=== PATIENT | female | born 1980 | race Caucasian/White ===

== ENCOUNTER 2017-04-10 08:03 | Emergency (ER) | payer OTHER ==
[2017-04-10 08:13] VITALS: TEMP 98.7
[2017-04-10] MEDS ORDERED: SODIUM CHLORIDE 0.9% 1,000 ML IV STA (08:59)
[2017-04-10] MEDS ORDERED: MAG HYDROX/AL HYDROX/SIMETH 30 ML, HYOSCYAMINE ELIXIR 10 ML, CIMETIDINE HCL 300 MG, LID... PO STA ×4 (08:59)
[2017-04-10] MEDS ORDERED: ONDANSETRON 4 MG/2 ML VIAL IVP STA (08:59)
[2017-04-10] MEDS ORDERED: FAMOTIDINE 20 MG/2 ML VIAL IV STA (08:59)
--- NOTE | 2017-04-10 09:01 | ED ---
General Adult HPI - General Chief complaint: Nausea/Vomiting/Diarrhea Stated complaint: Flu Time Seen by Provider: 04/10/17 08:47 Source: patient, RN notes reviewed Mode of arrival: ambulatory Limitations: no limitations - History of Present Illness Initial comments: 36-year-old female presents emergency department with chief complaint of nausea and vomiting. Patient states children were sick last week on Sunday she had episodes of nausea and vomiting. She states she continues to just feels very weak and fatigued. She states that she developed some burning under her left breast today so she became concerned. normal bowel movements. She states that it is associated with how she lays. She states the vomiting seems to make it worse. She denies any high fevers with this. She states that her family was sick with similar like symptoms. She became concerned when she developed this chest burning so she thought that she should be seen. She denies any significant health history. She denies any shortness of breath with this. She denies any other symptoms at this time.Patient denies any recent fever, chills, shortness of breath, abdominal pain, numbness or tingling, dysuria or hematuria , constipation or diarrhea, headaches or visual changes, or any other current symptoms. - Related Data Home Medications Medication Instructions Recorded Confirmed Loratadine [Claritin] 10 mg PO DAILY 04/10/17 04/10/17 Norgestimate-Ethinyl Estradiol 1 tab PO DAILY 04/10/17 04/10/17 [Sprintec 28 Day Tablet] Oscillococcinum 1 tab PO DAILY 04/10/17 04/10/17 Previous Rx's Medication Instructions Recorded Ondansetron Odt [Zofran ODT] 4 mg PO Q8HR PRN #20 tab 04/10/17 Allergies Allergy/AdvReac Type Severity Reaction Status Date / Time No Known Allergies Allergy Verified 04/10/17 08:26 Review of Systems ROS Statement: Those systems with pertinent positive or pertinent negative responses have been documented in the HPI. ROS Other: All systems not noted in ROS Statement are negative. Past Medical History Past Medical History: No Reported History History of Any Multi-Drug Resistant Organisms: None Reported Past Surgical History: Cholecystectomy Past Psychological History: No Psychological Hx Reported Smoking Status: Current every day smoker Past Alcohol Use History: None Reported Past Drug Use History: None Reported General Exam - General Exam Comments Initial Comments: General: The patient is awake and alert, in no distress, and does not appear acutely ill. Eye: Pupils are equal, round and reactive to light, extra-ocular movements are intact; there is normal conjunctiva bilaterally. No signs of icterus. Ears, nose, mouth and throat: There are moist mucous membranes. Neck: The neck is supple, there is no tenderness. Cardiovascular: There is a regular rate and rhythm. No murmur, rub or gallop is appreciated. Respiratory: Lungs are clear to auscultation, respirations are non-labored, breath sounds are equal. No wheezes, stridor, rales, or rhonchi. Gastrointestinal: Soft, non-distended, non-tender abdomen without masses or organomegaly noted. There is no rebound or guarding present. No CVA tenderness. Bowel sounds are unremarkable. Back: There is no tenderness to palpation in the midline. There is no obvious deformity. No rashes noted. Musculoskeletal: Normal ROM, no tenderness, There is no pedal edema. There is no calf tenderness or swelling. Sensation intact. Pulses equal bilaterally 2+. Neurological: CN II-XII intact, There are no obvious motor or sensory deficits. Coordination appears grossly intact. Speech is normal. Skin: Skin is warm and dry and no rashes or lesions are noted. Psychiatric: Cooperative, appropriate mood & affect, normal judgment. Limitations: no limitations Course Vital Signs 04/10/17 08:11 Temperature 98.7 F Pulse Rate 107 H Respiratory 20 Rate Blood Pressure 121/74 O2 Sat by Pulse 98 Oximetry EKG Findings - EKG Comments: EKG Findings:: normal sinus rhythm with sinus arrhythmia 67 bpm, normal axis, no atopy, no S-T depressions or elevations, Medical Decision Making - Medical Decision Making 36-year-old female presents emergency department chief complaint of nausea and vomiting. At this time patient's lab work is been reviewed. As well as imaging. This time we discussed most likely viral gastroenteritis is a family history and her symptoms. We discussed the burning in her chest is most likely due to acid reflux from vomiting. We did discuss close follow-up we did discuss return parameters. We did discuss other etiologies and all questions. Patient stated that she understood and she is given plan. She will be discharged. - Lab Data Result diagrams: 04/10/17 09:30 04/10/17 09:30 Lab Results 04/10/17 04/10/17 04/10/17 Range/Units 09:30 09:30 09:30 WBC 8.6 (3.8-10.6) k/uL RBC 4.65 (3.80-5.40) m/uL Hgb 14.2 (11.4-16.0) gm/dL Hct 41.7 (34.0-46.0) % MCV 89.8 (80.0-100.0) fL MCH 30.6 (25.0-35.0) pg MCHC 34.0 (31.0-37.0) g/dL RDW 13.1 (11.5-15.5) % Plt Count 262 (150-450) k/uL Neutrophils % 77 % Lymphocytes % 16 % Monocytes % 5 % Eosinophils % 1 % Basophils % 0 % Neutrophils # 6.6 (1.3-7.7) k/uL Lymphocytes # 1.4 (1.0-4.8) k/uL Monocytes # 0.4 (0-1.0) k/uL Eosinophils # 0.1 (0-0.7) k/uL Basophils # 0.0 (0-0.2) k/uL Sodium 139 (137-145) mmol/L Potassium 4.4 (3.5-5.1) mmol/L Chloride 103 (98-107) mmol/L Carbon Dioxide 26 (22-30) mmol/L Anion Gap 10 mmol/L BUN 11 (7-17) mg/dL Creatinine 0.74 (0.52-1.04) mg/dL Est GFR (MDRD) Af Amer >60 (>60 ml/min/1.73 sqM) Est GFR (MDRD) Non-Af >60 (>60 ml/min/1.73 sqM) Glucose 83 (74-99) mg/dL Calcium 9.1 (8.4-10.2) mg/dL Total Bilirubin 0.4 (0.2-1.3) mg/dL AST 21 (14-36) U/L ALT 24 (9-52) U/L Alkaline Phosphatase 82 (38-126) U/L Total Protein 7.0 (6.3-8.2) g/dL Albumin 4.0 (3.5-5.0) g/dL Amylase 61 (30-110) U/L Lipase 38 (23-300) U/L Urine Color Urine Appearance (Clear) Urine pH (5.0-8.0) Ur Specific [place] (1.001-1.035) Ur Protein Confirm (Negative) Urine Glucose (UA) (Negative) Urine Ketones (Negative) Urine Blood (Negative) Urine Nitrite (Negative) Urine Bilirubin (Negative) Urine Urobilinogen (<2.0) mg/dL Ur Leukocyte Esterase (Negative) Urine RBC (0-5) /hpf Urine WBC (0-5) /hpf Urine HCG, Qual Not Detected (Not Detectd) Influenza Type A RNA (Not Detectd) Influenza Type B (PCR) (Not Detectd) 04/10/17 04/10/17 Range/Units 09:30 09:30 WBC (3.8-10.6) k/uL RBC (3.80-5.40) m/uL Hgb (11.4-16.0) gm/dL Hct (34.0-46.0) % MCV (80.0-100.0) fL MCH (25.0-35.0) pg MCHC (31.0-37.0) g/dL RDW (11.5-15.5) % Plt Count (150-450) k/uL Neutrophils % % Lymphocytes % % Monocytes % % Eosinophils % % Basophils % % Neutrophils # (1.3-7.7) k/uL Lymphocytes # (1.0-4.8) k/uL Monocytes # (0-1.0) k/uL Eosinophils # (0-0.7) k/uL Basophils # (0-0.2) k/uL Sodium (137-145) mmol/L Potassium (3.5-5.1) mmol/L Chloride (98-107) mmol/L Carbon Dioxide (22-30) mmol/L Anion Gap mmol/L BUN (7-17) mg/dL Creatinine (0.52-1.04) mg/dL Est GFR (MDRD) Af Amer (>60 ml/min/1.73 sqM) Est GFR (MDRD) Non-Af (>60 ml/min/1.73 sqM) Glucose (74-99) mg/dL Calcium (8.4-10.2) mg/dL Total Bilirubin (0.2-1.3) mg/dL AST (14-36) U/L ALT (9-52) U/L Alkaline Phosphatase (38-126) U/L Total Protein (6.3-8.2) g/dL Albumin (3.5-5.0) g/dL Amylase (30-110) U/L Lipase (23-300) U/L Urine Color Yellow Urine Appearance Slightly Cloudy H (Clear) Urine pH 6.0 (5.0-8.0) Ur Specific [place] 1.018 (1.001-1.035) Ur Protein Confirm Negative (Negative) Urine Glucose (UA) Negative (Negative) Urine Ketones 1+ H (Negative) Urine Blood Small (Negative) Urine Nitrite Negative (Negative) Urine Bilirubin 1+ H (Negative) Urine Urobilinogen 1.0 (<2.0) mg/dL Ur Leukocyte Esterase Moderate (Negative) Urine RBC 2 (0-5) /hpf Urine WBC 2 (0-5) /hpf Urine HCG, Qual (Not Detectd) Influenza Type A RNA Not Detected (Not Detectd) Influenza Type B (PCR) Not Detected (Not Detectd) Disposition Clinical Impression: Nausea & vomiting, Atypical chest pain Disposition: HOME SELF-CARE Condition: Stable Instructions: Acute Nausea and Vomiting (ED), Gastroenteritis (ED) Additional Instructions: Please use medication as discussed. Please follow up with family doctor if symptoms have not improved over the next two days. Please return to the emergency room if your symptoms increase or worsen or for any other concerns. Prescriptions: Ondansetron Odt [Zofran ODT] 4 mg PO Q8HR PRN #20 tab PRN Reason: Nausea Referrals: Marcelino Salgado DO [Primary Care Provider] - 1-2 days Time of Disposition: 10:39
[2017-04-10 09:51] LABS: Basophils % (A) 0 %; Eosinophils # (A) 0.1 k/uL (0-0.7); Eosinophils % (A) 1 %; HCT 41.7 % (34.0-46.0); HGB 14.2 gm/dL (11.4-16.0); Lymphocytes # (A) 1.4 k/uL (1.0-4.8); Lymphocytes % (A) 16 %; MCH 30.6 pg (25.0-35.0); MCV 89.8 fL (80.0-100.0); Mean Platelet Volume 7.1; Monocytes # (A) 0.4 k/uL (0-1.0); Monocytes % (A) 5 %; Neutrophils # (A) 6.6 k/uL (1.3-7.7); Neutrophils % (A) 77 %; Platelet Count 262 k/uL (150-450); RBC 4.65 m/uL (3.80-5.40); RDW 13.1 % (11.5-15.5); WBC 8.6 k/uL (3.8-10.6)
[2017-04-10 09:58] LABS: Color,Urine Yellow
[2017-04-10 09:59] LABS: Appearance,Urine Slightly Cloudy (Clear); Bilirubin,Urine 1+ (Negative); Glucose,Urine (UA) Negative (Negative); Ketones,Urine 1+ (Negative); Protein Confirmation,Urine Negative (Negative); Specific Gravity,Urine 1.018 (1.001-1.035)
[2017-04-10 10:00] LABS: Blood,Urine Small (Negative); Leukocyte Esterase,Urine Moderate (Negative); Nitrite,Urine Negative (Negative)
[2017-04-10 10:01] LABS: RBC,Urine 2 /hpf (0-5); WBC,Urine 2 /hpf (0-5)
--- NOTE | 2017-04-10 10:08 | XR ---
EXAMINATION TYPE: XR abdomen 2V DATE OF EXAM: 04/10/2017 COMPARISON: NONE HISTORY: Pain and vomiting TECHNIQUE: Two view abdominal series FINDINGS: The osseous structures are intact. The bowel gas pattern is nonspecific. Lung bases are clear. Post surgical change involving the right upper quadrant. Few prominent small bowel loops are seen. IMPRESSION: 1. Nonspecific abdomen. There are few prominent small bowel loops. Correlate for ileus or enteritis which is favored over partial obstruction. Correlate clinically.
[2017-04-10 10:14] LABS: ALT 24 U/L (9-52); AST 21 U/L (14-36); Alkaline Phosphatase 82 U/L (38-126); Amylase 61 U/L (30-110); Anion Gap 10 mmol/L; Blood Urea Nitrogen 11 mg/dL (7-17); Calcium 9.1 mg/dL (8.4-10.2); Carbon Dioxide 26 mmol/L (22-30); Chloride 103 mmol/L (98-107); Glucose 83 mg/dL (74-99); Lipase 38 U/L (23-300); Potassium 4.4 mmol/L (3.5-5.1); Sodium 139 mmol/L (137-145); Total Bilirubin 0.4 mg/dL (0.2-1.3)
[2017-04-10 10:53] VITALS: BP 126/72; PULSE 74; RESP 18
== END 2017-04-10 10:53 | disposition home or self-care (01) ==
LOC: EC 08:03
DX: R11.2 Nausea with vomiting, unspecified (principal); R07.89 Other chest pain; F17.200 Nicotine dependence, unspecified, uncomplicated; Z79.3 Long term (current) use of hormonal contraceptives; Z79.899 Other long term (current) drug therapy; Z90.49 Acquired absence of other specified parts of digestive tract
CPT/HCPCS: 36415; 93005; 80053; 82150; 83690; 85025; 81001; 81025; 87040; 87086; 87502; 74019; 99284; 96374; 96375; 96361; J2405

== ENCOUNTER → 2018-04-24 | Outpatient (CLI) | payer OTHER ==
--- NOTE | 2018-04-25 07:31 | US ---
EXAMINATION TYPE: US thyroid st tissue head/neck DATE OF EXAM: 04/24/2018 COMPARISON: NONE CLINICAL HISTORY: R59.0 Localized enlarged lymph nodes. enlarging left lateral neck lymph node, no pa in 1.9 x 1.2 x 0.3cm normal appearing lymph node with internal vascularity noted at palpable that sits l aterally adjacent to hair line. IMPRESSION: Normal lymph node noted at that site of clinical concern.
== END | disposition home or self-care (01) ==
LOC: RADUSWWP 16:39
PROVIDERS: ATTEND Family Medicine
DX: R59.0 Localized enlarged lymph nodes (principal)
CPT/HCPCS: 76536

== ENCOUNTER 2018-06-03 07:50 | Emergency (ER) | payer OTHER ==
[2018-06-03 08:01] VITALS: RESP 18
[2018-06-03] MEDS ORDERED: SODIUM CHLORIDE 0.9% 1,000 ML IV STA (08:18)
--- NOTE | 2018-06-03 08:28 | ED ---
Abdominal Pain HPI - General Chief Complaint: Abdominal Pain Stated Complaint: abdominal pain Time Seen by Provider: 06/03/18 08:03 Source: patient, RN notes reviewed Mode of arrival: ambulatory Limitations: no limitations - History of Present Illness Initial Comments: This a 37-year-old female presents emergency Department chief complaint of right-sided abdominal pain. Patient states she started with some back discomfort has now progressed to her abdominal region. Patient states that the pain is worse with walking and bumps. Patient states she's had a prior cholecystectomy years ago. Patient does admit to slight nausea no vomiting. Denies any dysuria, hematuria. She does have a history kidney stones with this feels different. Patient does take her control unsure at this time. Patient denies any vaginal bleeding or vaginal discharge. - Related Data Home Medications Medication Instructions Recorded Confirmed Norgestimate-Ethinyl Estradiol 1 tab PO DAILY 04/10/17 06/03/18 [Sprintec 28 Day Tablet] Escitalopram Oxalate [Lexapro] 10 mg PO HS 06/03/18 06/03/18 Ibuprofen [Motrin] 600 mg PO Q8HR PRN 06/03/18 06/03/18 Previous Rx's Medication Instructions Recorded Ciprofloxacin HCl [Cipro] 500 mg PO Q12HR #20 tablet 06/03/18 Allergies Allergy/AdvReac Type Severity Reaction Status Date / Time No Known Allergies Allergy Verified 06/03/18 08:14 Review of Systems ROS Statement: Those systems with pertinent positive or pertinent negative responses have been documented in the HPI. ROS Other: All systems not noted in ROS Statement are negative. Past Medical History Past Medical History: No Reported History History of Any Multi-Drug Resistant Organisms: None Reported Past Surgical History: Cholecystectomy Past Psychological History: No Psychological Hx Reported Smoking Status: Current every day smoker Past Alcohol Use History: Occasional Past Drug Use History: None Reported General Exam Limitations: no limitations General appearance: alert, in no apparent distress Head exam: Present: atraumatic, normocephalic, normal inspection Neck exam: Present: normal inspection. Absent: tenderness, meningismus, lymphadenopathy Respiratory exam: Present: normal lung sounds bilaterally. Absent: respiratory distress, wheezes, rales, rhonchi, stridor Cardiovascular Exam: Present: normal rhythm, tachycardia, normal heart sounds. Absent: systolic murmur, diastolic murmur, rubs, gallop, clicks GI/Abdominal exam: Present: soft, tenderness (Moderate right-sided), normal bowel sounds. Absent: distended, guarding, rebound, rigid Course Vital Signs 06/03/18 07:59 Temperature 100.3 F H Pulse Rate 109 H Respiratory 18 Rate Blood Pressure 104/65 O2 Sat by Pulse 98 Oximetry Medical Decision Making - Medical Decision Making 37-year-old female presents emergency Department for right back pain, right lower quadrant abdominal plain. Lab work, urinalysis and CT was obtained. Patient CT shows evidence of pyelonephritis consistent with her urinalysis. Patient we given 2 g Rocephin at this time. She has no immunocompromise. Patient clinically was not fully visualized on CT though there is no evidence of stranding. This felt to be less likely appendicitis. Patient was given strict return parameters. Patient be discharged on Cipro Floxin return parameters were discussed. - Lab Data Result diagrams: 06/03/18 08:35 06/03/18 08:35 Lab Results 06/03/18 06/03/18 06/03/18 Range/Units 08:30 08:30 08:35 WBC 13.2 H (3.8-10.6) k/uL RBC 4.66 (3.80-5.40) m/uL Hgb 14.2 (11.4-16.0) gm/dL Hct 42.7 (34.0-46.0) % MCV 91.6 (80.0-100.0) fL MCH 30.4 (25.0-35.0) pg MCHC 33.2 (31.0-37.0) g/dL RDW 12.3 (11.5-15.5) % Plt Count 270 (150-450) k/uL Neutrophils % 77 % Lymphocytes % 14 % Monocytes % 6 % Eosinophils % 1 % Basophils % 0 % Neutrophils # 10.2 H (1.3-7.7) k/uL Lymphocytes # 1.9 (1.0-4.8) k/uL Monocytes # 0.9 (0-1.0) k/uL Eosinophils # 0.1 (0-0.7) k/uL Basophils # 0.0 (0-0.2) k/uL Sodium (137-145) mmol/L Potassium (3.5-5.1) mmol/L Chloride (98-107) mmol/L Carbon Dioxide (22-30) mmol/L Anion Gap mmol/L BUN (7-17) mg/dL Creatinine (0.52-1.04) mg/dL Est GFR (CKD-EPI)AfAm (>60 ml/min/1.73 sqM) Est GFR (CKD-EPI)NonAf (>60 ml/min/1.73 sqM) Glucose (74-99) mg/dL Plasma Lactic Acid Jean (0.7-2.0) mmol/L Calcium (8.4-10.2) mg/dL Total Bilirubin (0.2-1.3) mg/dL AST (14-36) U/L ALT (9-52) U/L Alkaline Phosphatase (38-126) U/L Total Protein (6.3-8.2) g/dL Albumin (3.5-5.0) g/dL Lipase (23-300) U/L Urine Color Yellow Urine Appearance Cloudy H (Clear) Urine pH 6.0 (5.0-8.0) Ur Specific [place] 1.016 (1.001-1.035) Urine Protein 1+ H (Negative) Urine Glucose (UA) Negative (Negative) Urine Ketones Trace H (Negative) Urine Blood Moderate H (Negative) Urine Nitrite Negative (Negative) Urine Bilirubin Negative (Negative) Urine Urobilinogen <2.0 (<2.0) mg/dL Ur Leukocyte Esterase Large H (Negative) Urine RBC 41 H (0-5) /hpf Urine WBC >182 H (0-5) /hpf Ur Squamous Epith Cells 2 (0-4) /hpf Urine Mucus Moderate H (None) /hpf Urine HCG, Qual Not Detected (Not Detectd) 06/03/18 06/03/18 Range/Units 08:35 08:35 WBC (3.8-10.6) k/uL RBC (3.80-5.40) m/uL Hgb (11.4-16.0) gm/dL Hct (34.0-46.0) % MCV (80.0-100.0) fL MCH (25.0-35.0) pg MCHC (31.0-37.0) g/dL RDW (11.5-15.5) % Plt Count (150-450) k/uL Neutrophils % % Lymphocytes % % Monocytes % % Eosinophils % % Basophils % % Neutrophils # (1.3-7.7) k/uL Lymphocytes # (1.0-4.8) k/uL Monocytes # (0-1.0) k/uL Eosinophils # (0-0.7) k/uL Basophils # (0-0.2) k/uL Sodium 137 (137-145) mmol/L Potassium 4.0 (3.5-5.1) mmol/L Chloride 107 (98-107) mmol/L Carbon Dioxide 23 (22-30) mmol/L Anion Gap 7 mmol/L BUN 8 (7-17) mg/dL Creatinine 0.73 (0.52-1.04) mg/dL Est GFR (CKD-EPI)AfAm >90 (>60 ml/min/1.73 sqM) Est GFR (CKD-EPI)NonAf >90 (>60 ml/min/1.73 sqM) Glucose 94 (74-99) mg/dL Plasma Lactic Acid Jean 0.9 (0.7-2.0) mmol/L Calcium 9.2 (8.4-10.2) mg/dL Total Bilirubin 0.5 (0.2-1.3) mg/dL AST 14 (14-36) U/L ALT 24 (9-52) U/L Alkaline Phosphatase 75 (38-126) U/L Total Protein 7.2 (6.3-8.2) g/dL Albumin 4.0 (3.5-5.0) g/dL Lipase 21 L (23-300) U/L Urine Color Urine Appearance (Clear) Urine pH (5.0-8.0) Ur Specific [place] (1.001-1.035) Urine Protein (Negative) Urine Glucose (UA) (Negative) Urine Ketones (Negative) Urine Blood (Negative) Urine Nitrite (Negative) Urine Bilirubin (Negative) Urine Urobilinogen (<2.0) mg/dL Ur Leukocyte Esterase (Negative) Urine RBC (0-5) /hpf Urine WBC (0-5) /hpf Ur Squamous Epith Cells (0-4) /hpf Urine Mucus (None) /hpf Urine HCG, Qual (Not Detectd) Disposition Clinical Impression: Pyelonephritis Disposition: HOME SELF-CARE Condition: Stable Instructions (If sedation given, give patient instructions): Kidney Infection (ED) Additional Instructions: Please return to the Emergency Department if symptoms worsen or any other concerns. Prescriptions: Ciprofloxacin HCl [Cipro] 500 mg PO Q12HR #20 tablet Is patient prescribed a controlled substance at d/c from ED?: No Referrals: Marcelino Salgado DO [Primary Care Provider] - 1-2 days Time of Disposition: 10:28
[2018-06-03] MEDS ORDERED: ACETAMINOPHEN IV (For NPO) 1,000 MG in EMPTY BAG 1 BAG IVPB ONE (08:30)
[2018-06-03 09:09] LABS: ALT 24 U/L (9-52); AST 14 U/L (14-36); Alkaline Phosphatase 75 U/L (38-126); Anion Gap 7 mmol/L; Blood Urea Nitrogen 8 mg/dL (7-17); Calcium 9.2 mg/dL (8.4-10.2); Carbon Dioxide 23 mmol/L (22-30); Chloride 107 mmol/L (98-107); Glucose 94 mg/dL (74-99); Lipase 21 U/L (23-300); Sodium 137 mmol/L (137-145); Total Bilirubin 0.5 mg/dL (0.2-1.3); Total Protein 7.2 g/dL (6.3-8.2)
[2018-06-03 09:27] LABS: Appearance,Urine Cloudy (Clear); Bilirubin,Urine Negative (Negative); Blood,Urine Moderate (Negative); Color,Urine Yellow; Glucose,Urine (UA) Negative (Negative); Ketones,Urine Trace (Negative); Leukocyte Esterase,Urine Large (Negative); Mucus,Urine Moderate /hpf; Nitrite,Urine Negative (Negative); Protein,Urine 1+ (Negative); RBC,Urine 41 /hpf (0-5); Specific Gravity,Urine 1.016 (1.001-1.035); Squamous Epithelial Cell,Urine 2 /hpf (0-4); Urobilinogen,Urine <2.0 mg/dL (<2.0)
[2018-06-03 09:33] LABS: Basophils % (A) 0 %; Eosinophils # (A) 0.1 k/uL (0-0.7); Eosinophils % (A) 1 %; HCT 42.7 % (34.0-46.0); HGB 14.2 gm/dL (11.4-16.0); Lymphocytes # (A) 1.9 k/uL (1.0-4.8); Lymphocytes % (A) 14 %; MCH 30.4 pg (25.0-35.0); MCHC 33.2 g/dL (31.0-37.0); MCV 91.6 fL (80.0-100.0); Mean Platelet Volume 6.2; Monocytes # (A) 0.9 k/uL (0-1.0); Monocytes % (A) 6 %; Neutrophils # (A) 10.2 k/uL (1.3-7.7); Neutrophils % (A) 77 %; Platelet Count 270 k/uL (150-450); RBC 4.66 m/uL (3.80-5.40); RDW 12.3 % (11.5-15.5); WBC 13.2 k/uL (3.8-10.6)
--- NOTE | 2018-06-03 10:17 | CT ---
EXAMINATION TYPE: CT abdomen pelvis w con DATE OF EXAM: 06/03/2018 HISTORY: RLQ pain CT DLP: 722.7mGycm Automated Exposure Control for Dose Reduction was Utilized. CONTRAST: CT scan of the abdomen and pelvis is performed with IV Contrast, patient injected with 100 mL of Isov ue 300. COMPARISON: 09/18/2014 FINDINGS: LUNG BASES: Scattered areas of subsegmental atelectasis are seen at the lung bases. LIVER/GB: There is a hypoattenuated lesion within segment 8 of the liver similar to exam of 2015 and therefore likely benign. There is very mild heterogeneity and enhancement on the hepatic parenchyma t hat could relate to early hepatocellular disease or early hepatic steatosis. Findings do not yet meet criteria for hepatic steatosis. Minimal intrahepatic biliary ductal dilatation and extra hepatic kiara iary ductal dilatation are also similar to the prior and likely on a postcholecystectomy basis. Gallb ladder is surgically absent. PANCREAS: No significant abnormality is seen. SPLEEN: No significant abnormality is seen. ADRENALS: No significant abnormality is seen. KIDNEYS: There is an ill-defined wedge-shaped area of hypoattenuation within the right mid and inferi or pole of the kidney extending through the cortex on the right kidney. There is also a nonobstructin g 3 mm calculus in the right lower pole. No hydronephrosis of either kidney. BOWEL: The appendix is seen directly adjacent to the terminal ileum. Both of these appear overall dec ompressed however there is questionable appendix wall thickening on axial image 67. No significant moralez rrounding inflammatory fat stranding or free air. UTERUS/ADNEXA: There is a small amount of fluid within the posterior cul-de-sac, likely physiologic i n nature with ovarian follicular and/or cystic changes bilaterally. LYMPH NODES: No greater than 1cm abdominal or pelvic lymph nodes are appreciated. 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 IMPRESSION: 1. Wedge-shaped defect in the mid to lower pole the right kidney is most radiographically compatible with pyelonephritis. Correlate with urinalysis. Follow-up renal ultrasound after resolution of sympto ms to ensure no underlying mass. 2. The appendix is decompression directly adjacent to the terminal ileum, suboptimally evaluated with out contrast. This gives the appearance of very mild appendiceal wall thickening although there are n o significant right lower quadrant fat stranding changes or pneumoperitoneum. If there is further con cern for appendicitis repeat exam of the pelvis would be recommended with oral contrast.
[2018-06-03] MEDS ORDERED: cefTRIAXone IN SWFI 1,000 MG/10 ML SYRINGE IVP STA (10:25)
[2018-06-03] MEDS ORDERED: ACETAMINOPHEN TAB 500 MG TAB PO STA (10:45)
[2018-06-03] MEDS ORDERED: KETOROLAC 30 MG/ML 1 ML VIAL IVP STA (10:45)
[2018-06-03 11:33] VITALS: BP 101/67; PULSE 94; TEMP 101
== END 2018-06-03 11:31 | disposition home or self-care (01) ==
LOC: EC 07:50
DX: N12 Tubulo-interstitial nephritis, not specified as acute or chronic (principal); R00.0 Tachycardia, unspecified; F17.200 Nicotine dependence, unspecified, uncomplicated; Z79.3 Long term (current) use of hormonal contraceptives; Z79.899 Other long term (current) drug therapy; Z87.442 Personal history of urinary calculi; Z90.49 Acquired absence of other specified parts of digestive tract; Z53.8 Procedure and treatment not carried out for other reasons
CPT/HCPCS: 99284; 96374; 96375; 96361; 36415; 80053; 83605; 83690; 85025; 81001; 81025; 87040; 87086; 87077; 87186; 74177; J0696; J1885; Q9967

== ENCOUNTER 2019-04-20 15:28 | Inpatient (IN) | payer OTHER ==
[2019-04-20 15:47] LABS: Glucose,Whole Blood 104 mg/dL (75-99)
[2019-04-20] MEDS ORDERED: SODIUM CHLORIDE 0.9% 1,000 ML IV STA (15:52)
[2019-04-20 16:02] LABS: Basophils # (A) 0.1 k/uL (0-0.2); Basophils % (A) 1 %; Eosinophils # (A) 0.4 k/uL (0-0.7); Eosinophils % (A) 4 %; HCT 43.3 % (34.0-46.0); HGB 14.6 gm/dL (11.4-16.0); Lymphocytes # (A) 3.7 k/uL (1.0-4.8); Lymphocytes % (A) 36 %; MCH 31.2 pg (25.0-35.0); MCHC 33.7 g/dL (31.0-37.0); MCV 92.7 fL (80.0-100.0); Monocytes # (A) 0.6 k/uL (0-1.0); Monocytes % (A) 5 %; Neutrophils # (A) 5.3 k/uL (1.3-7.7); Neutrophils % (A) 51 %; Platelet Count 290 k/uL (150-450); RBC 4.67 m/uL (3.80-5.40); RDW 12.4 % (11.5-15.5); WBC 10.3 k/uL (3.8-10.6)
--- NOTE | 2019-04-20 16:05 | ED ---
General Adult HPI - General Chief complaint: Neuro Symptoms/Deficit Stated complaint: Lt side numbness/Had TIA in 2011 Time Seen by Provider: 04/20/19 15:47 Source: patient, RN notes reviewed, old records reviewed Mode of arrival: ambulatory Limitations: no limitations - History of Present Illness Initial comments: 38-year-old female presenting for evaluation of left facial numbness and facial droop. Symptoms began at 1500 which is one hour prior to arrival. She has some numbness and tingling into her left shoulder. Denies slurred speech. Denies vision changes. She has previous history of TIA and has been prescribed aspirin but does not take this on a regular basis. No other anticoagulants or antihypertensive medications. Denies associated chest pain. Denies abdominal pain nausea vomiting. Denies chest pain or dyspnea. Denies fever. - Related Data Home Medications Medication Instructions Recorded Confirmed Norgestimate-Ethinyl Estradiol 1 tab PO DAILY 04/10/17 06/03/18 [Sprintec 28 Day Tablet] Escitalopram Oxalate [Lexapro] 10 mg PO HS 06/03/18 06/03/18 Ibuprofen [Motrin] 600 mg PO Q8HR PRN 06/03/18 06/03/18 Previous Rx's Medication Instructions Recorded Ciprofloxacin HCl [Cipro] 500 mg PO Q12HR #20 tablet 06/03/18 Allergies Allergy/AdvReac Type Severity Reaction Status Date / Time No Known Allergies Allergy Verified 04/20/19 15:33 Review of Systems ROS Statement: Those systems with pertinent positive or pertinent negative responses have been documented in the HPI. ROS Other: All systems not noted in ROS Statement are negative. Past Medical History Past Medical History: CVA/TIA History of Any Multi-Drug Resistant Organisms: None Reported Past Surgical History: Cholecystectomy Past Psychological History: No Psychological Hx Reported Smoking Status: Current every day smoker Past Alcohol Use History: Occasional Past Drug Use History: None Reported General Exam Limitations: no limitations General appearance: alert, in no apparent distress Head exam: Present: atraumatic, normocephalic Eye exam: Present: normal appearance, PERRL, EOMI. Absent: scleral icterus, nystagmus ENT exam: Present: normal exam, TM's normal bilaterally Neck exam: Present: normal inspection. Absent: tenderness, meningismus Respiratory exam: Present: normal lung sounds bilaterally. Absent: respiratory distress, wheezes Cardiovascular Exam: Present: regular rate, normal rhythm GI/Abdominal exam: Present: soft. Absent: distended, tenderness, guarding Extremities exam: Present: normal inspection, normal capillary refill. Absent: pedal edema, calf tenderness Back exam: Present: normal inspection, full ROM Neurological exam: Present: alert, oriented X3, motor sensory deficit (Left facial droop, left facial numbness, decreased reverse engineer strength on the left, no drift, total NIH of 2 at 1555) Psychiatric exam: Present: normal affect, normal mood Skin exam: Present: warm, dry, intact. Absent: cyanosis, diaphoretic Course Vital Signs 04/20/19 04/20/19 15:31 17:09 Temperature 98.1 F Pulse Rate 94 87 Respiratory 16 18 Rate Blood Pressure 137/80 107/69 O2 Sat by Pulse 98 96 Oximetry - Reevaluation(s) Reevaluation #1: 04/20/19 1550 Patient denies possibility of . Reevaluation #2: 04/20/19 [address] Lyn, recommend CT CT angiography which has been ordered. Patient was not a TPA candidate secondary to minor symptoms. Reevaluation #3: 04/20/19 17:11 Patient reevaluated, neuro exam unchanged. EKG Findings - EKG Comments: EKG Findings:: EKG: Normal sinus rhythm, rate of 84, MN interval 146, QRS duration 80, QTC 444, no ST segment elevation. Medical Decision Making - Medical Decision Making 38 female presenting with left facial droop, history of TIA. CT is performed which is negative for acute intracranial pathology, no hemorrhage, no mass effect. CT angiography negative for aneurysm, dissection, or stenosis. Patient has normal CBC, normal CMP, she has an EKG showing sinus rhythm. 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 NIH of 2. She will be admitted for further stroke evaluation, neurology consultation. Case is discussed with Dr. Gil who will admit the patient. - Lab Data Result diagrams: 04/20/19 15:42 04/20/19 15:42 Lab Results 04/20/19 04/20/19 04/20/19 Range/Units 15:42 15:42 15:42 WBC 10.3 (3.8-10.6) k/uL RBC 4.67 (3.80-5.40) m/uL Hgb 14.6 (11.4-16.0) gm/dL Hct 43.3 (34.0-46.0) % MCV 92.7 (80.0-100.0) fL MCH 31.2 (25.0-35.0) pg MCHC 33.7 (31.0-37.0) g/dL RDW 12.4 (11.5-15.5) % Plt Count 290 (150-450) k/uL Neutrophils % 51 % Lymphocytes % 36 % Monocytes % 5 % Eosinophils % 4 % Basophils % 1 % Neutrophils # 5.3 (1.3-7.7) k/uL Lymphocytes # 3.7 (1.0-4.8) k/uL Monocytes # 0.6 (0-1.0) k/uL Eosinophils # 0.4 (0-0.7) k/uL Basophils # 0.1 (0-0.2) k/uL PT 9.8 (9.0-12.0) sec INR 0.9 (<1.2) APTT 24.7 (22.0-30.0) sec Sodium 137 (137-145) mmol/L Potassium 3.8 (3.5-5.1) mmol/L Chloride 107 (98-107) mmol/L Carbon Dioxide 21 L (22-30) mmol/L Anion Gap 9 mmol/L BUN 16 (7-17) mg/dL Creatinine 0.78 (0.52-1.04) mg/dL Est GFR (CKD-EPI)AfAm >90 (>60 ml/min/1.73 sqM) Est GFR (CKD-EPI)NonAf >90 (>60 ml/min/1.73 sqM) Glucose 92 (74-99) mg/dL POC Glucose (mg/dL) (75-99) mg/dL POC Glu Inventory Technician ID Calcium 9.6 (8.4-10.2) mg/dL Total Bilirubin 0.4 (0.2-1.3) mg/dL AST 24 (14-36) U/L ALT 13 (4-34) U/L Alkaline Phosphatase 93 (38-126) U/L Troponin I (0.000-0.034) ng/mL Total Protein 7.7 (6.3-8.2) g/dL Albumin 4.5 (3.5-5.0) g/dL 04/20/19 04/20/19 Range/Units 15:42 15:45 WBC (3.8-10.6) k/uL RBC (3.80-5.40) m/uL Hgb (11.4-16.0) gm/dL Hct (34.0-46.0) % MCV (80.0-100.0) fL MCH (25.0-35.0) pg MCHC (31.0-37.0) g/dL RDW (11.5-15.5) % Plt Count (150-450) k/uL Neutrophils % % Lymphocytes % % Monocytes % % Eosinophils % % Basophils % % Neutrophils # (1.3-7.7) k/uL Lymphocytes # (1.0-4.8) k/uL Monocytes # (0-1.0) k/uL Eosinophils # (0-0.7) k/uL Basophils # (0-0.2) k/uL PT (9.0-12.0) sec INR (<1.2) APTT (22.0-30.0) sec Sodium (137-145) mmol/L Potassium (3.5-5.1) mmol/L Chloride (98-107) mmol/L Carbon Dioxide (22-30) mmol/L Anion Gap mmol/L BUN (7-17) mg/dL Creatinine (0.52-1.04) mg/dL Est GFR (CKD-EPI)AfAm (>60 ml/min/1.73 sqM) Est GFR (CKD-EPI)NonAf (>60 ml/min/1.73 sqM) Glucose (74-99) mg/dL POC Glucose (mg/dL) 104 H (75-99) mg/dL POC Glu Inventory Technician ID Jany Barros Calcium (8.4-10.2) mg/dL Total Bilirubin (0.2-1.3) mg/dL AST (14-36) U/L ALT (4-34) U/L Alkaline Phosphatase (38-126) U/L Troponin I <0.012 (0.000-0.034) ng/mL Total Protein (6.3-8.2) g/dL Albumin (3.5-5.0) g/dL Critical Care Time Critical Care Time: Yes Total Critical Care Time: 35 Disposition Clinical Impression: Cerebrovascular accident (CVA) Disposition: ADMITTED IP TO THIS [facility] Condition: Stable Is patient prescribed a controlled substance at d/c from ED?: No Referrals: Thalia Vora MD [Primary Care Provider] - 1-2 days Decision to Admit Reason: Admit from EC Decision Date: 04/20/19 Decision Time: 17:13
[2019-04-20 16:11] LABS: ALT 13 U/L (4-34); AST 24 U/L (14-36); African American GFR (CKD) >90 (>60 ml/min/1.73 sqM); Albumin 4.5 g/dL (3.5-5.0); Alkaline Phosphatase 93 U/L (38-126); Anion Gap 9 mmol/L; Blood Urea Nitrogen 16 mg/dL (7-17); Calcium 9.6 mg/dL (8.4-10.2); Carbon Dioxide 21 mmol/L (22-30); Chloride 107 mmol/L (98-107); Glucose 92 mg/dL (74-99); Non-African American GFR(CKD) >90 (>60 ml/min/1.73 sqM); Potassium 3.8 mmol/L (3.5-5.1); Sodium 137 mmol/L (137-145); Total Bilirubin 0.4 mg/dL (0.2-1.3); Total Protein 7.7 g/dL (6.3-8.2)
--- NOTE | 2019-04-20 16:19 | CT ---
EXAMINATION TYPE: CT brain wo con for TPA DATE OF EXAM: 04/20/2019 COMPARISON: 06/09/2015 HISTORY: Neuro deficits, LT side numbness, TIA 2011 CT DLP: 1102.8 mGycm Automated exposure control for dose reduction was used. FINDINGS: There is no acute intracranial hemorrhage, mass effect, or midline shift identified. The ventricles and sulci are within normal limits in size. The globes are intact and the visualized sinuses are tk ar. Latrice bullosa is incidentally noted on the left. Low-lying cerebellar tonsils are also incidenta lly noted. IMPRESSION: No acute intracranial hemorrhage, mass effect, or midline shift is seen.
[2019-04-20 16:34] LABS: INR 0.9 (<1.2); Partial Thromboplastin Time 24.7 sec (22.0-30.0); Prothrombin Time 9.8 sec (9.0-12.0)
[2019-04-20] MEDS ORDERED: predniSONE 50 MG TAB PO STA (16:42)
[2019-04-20] MEDS ORDERED: ASPIRIN 325 MG TAB PO STA (16:42)
--- NOTE | 2019-04-20 16:49 | CT ---
EXAMINATION TYPE: CT angio head neck DATE OF EXAM: 04/20/2019 HISTORY: Neuro deficits, LT side weakness. Hx TIA 2011 COMPARISON: CT brain of the same date CT DLP: 484.8 mGycm. Automated Exposure Control for Dose Reduction was Utilized. TECHNIQUE: CTA scan of the neck is performed with IV Contrast, patient injected with 65 mL of Isovue 370, axial images are obtained, coronal and sagittal reformatted images are reviewed. Three-D recons tructed images are created on an independent workstation and reviewed. FINDINGS: Carotid/Vascular Structures: The common carotids, internal carotid arteries, and vertebral arteries a re patent in their cervical portions. The aortic arch has a conventional three-vessel branch pattern. The basilar artery is unremarkable as are the posterior cerebral arteries. The middle cerebral arter ies trifurcate normally and anterior cerebral arteries are also unremarkable. No sizable intracranial aneurysm or large vessel occlusion. Other: Strand-like density in the superior anterior mediastinum most commonly relates to residual thy alban tissue. Lung apices demonstrate minimal dependent subsegmental atelectasis. As well as portions o f the brain are discussed in the brain CT dictation of the same date. IMPRESSION: No sizable intracranial aneurysm or large vessel occlusion. No evidence of dissection of the head or neck.
--- NOTE | 2019-04-20 17:00 | XR ---
EXAMINATION TYPE: XR chest 1V portable DATE OF EXAM: 04/20/2019 COMPARISON: 07/07/2015 HISTORY: Cerebrovascular accident. Altered mental status. TECHNIQUE: Single frontal view of the chest is obtained. FINDINGS: There is no focal air space opacity, pleural effusion, or pneumothorax seen. Eventration o f the right hemidiaphragm is again seen. The cardiac silhouette size is within normal limits. The o sseous structures are intact. IMPRESSION: No acute process.
[2019-04-20] MEDS ORDERED: NALOXONE 0.4 MG/ML 1 ML VIAL IV PRN (18:07)
[2019-04-20] MEDS ORDERED: MELATONIN 3 MG TABLET PO PRN (18:07)
[2019-04-20] MEDS ORDERED: ONDANSETRON 4 MG/2 ML VIAL IVP PRN (18:07)
--- NOTE | 2019-04-20 18:20 | P.HPIM ---
History of Present Illness H&P Date: 04/20/19 Chief Complaint: facial weakness and numbness Patient is a 38 yo CF with a prior TIA in Feb 2012, history of UTI, and tobacco abuse who presented to the ER with left facial and arm complaints. In the ER she underwent an extensive evaluation. Her initial vital signs within normal limits and laboratory analysis was unremarkable. CT head showed no acute intracranial hemorrhage, mass effect, or midline shift. CT angiogram of the head and neck showed no sizable intracranial aneurysm or large special occlusion. Initiate stroke work was activated and did not recommend TPA secondary to how mild her symptoms are. NIH was 2. She received a dose of aspirin in the emergency department. She also received a dose of prednisone with concerns of Vásquez's palsy. Arrangements are made for admission for TIA versus stroke. Patient seen and examined at bedside with her significant other present. She reports that today she noted left ear fullness and felt like it was underwater, her symptoms then expanded to he left check and, neck and then down into left arm. Left arm felt weak, left face felt "like when you have dental work". The symptoms in her ear are better after 90 mins, face improved but not gone and her left arm is improved but not resolved. Christiano noted that she was having trouble getting her words out and saying wrong words (confusing washing machine for dis hwasher), having some confusion during the episode when trying to dress herself, no drooling, no problems swallowing. She notes palpitations in chest 2 days ago, which was unusual. Otherwise she's been in her typical state of health. She denies any recent cough, cold, fever, flu, nausea, vomiting, or diarrhea. She denies any chest pain or shortness of breath. Review of Systems Pertinent positives and negatives as discussed in HPI, a complete review of syst ems was performed and all other systems are negative. Past Medical History Past Medical History: CVA/TIA Additional Past Medical History / Comment(s): TIA February 2012. Hx of UTI History of Any Multi-Drug Resistant Organisms: None Reported Past Surgical History: Cholecystectomy Additional Past Surgical History / Comment(s): Colonoscopy Past Psychological History: No Psychological Hx Reported Smoking Status: Current every day smoker Past Alcohol Use History: Occasional Past Drug Use History: None Reported Additional History: 1/2-3/4 PPD, ETOH once monthly, no illicit drug use. Works for [employer] - Past Family History Father History Unknown: Yes Mother Additional Family Medical History / Comment(s): acute lukemia, decreased from head bleed Medications and Allergies Home Medications and Allergies Comment(s): Macrobid-swelling of her lips and hives on her face Home Medications Medication Instructions Recorded Confirmed Type Cetirizine HCl [Zyrtec] 10 mg PO DAILY PRN 04/20/19 04/20/19 History Escitalopram Oxalate [Lexapro] 20 mg PO HS 04/20/19 04/20/19 History Allergies Allergy/AdvReac Type Severity Reaction Status Date / Time nitrofurantoin Allergy Anaphylaxis Verified 04/20/19 17:31 [From Macrobid] Physical Exam Osteopathic Statement: *. No significant issues noted on an osteopathic structural exam other than those noted in the History and Physical/Consult. Vitals: Vital Signs Temp Pulse Resp BP Pulse Ox 04/20/19 15:31 98.1 F 94 16 137/80 98 Intake and Output 04/20/19 04/20/19 04/20/19 06:59 14:59 22:59 Other: Weight 81.647 kg General: non toxic, no distress, appears at stated age, normal weight Derm: no unusual rashes/lesions no unusual ecchymoses, warm, dry Head: atraumatic, normocephalic, symmetric Eyes: EOMI, no lid lag, anicteric sclera, pupils equal round reactive to light ENT: Nose and ears atraumatic, no thrush, no pharyngeal erythema Neck: No thyromegaly, no cervical lymphadenopathy, trachea midline, supple Mouth: no lip lesion, mucus membranes moist Cardiovascular: S1S2 reg, no murmur, positive posterior tibial pulse bilateral, no edema, capillary refill less than 2 seconds Lungs: CTA bilateral, no rhonchi, no rales , no accessory muscle use Abdominal: soft, nontender to palpation, no guarding, no appreciable organomegaly, normal bowel sounds Ext: no gross muscle atrophy, muscle strength 5 out of 5 in all 4 extremities grossly, no contractures, Neuro: Pupils equal round reactive to light, extraocular motion intact, uvula deviation to the left, tongue deviation mild to the right, left-sided weakness and trying to raise her clavicle, loss of the nasolabial fold left mouth, equal movement of the eyelids and forehead Muscle strength 5 out of 5 in right upper and lower extremities grossly Muscle strength 4 out of 5 with abduction and abduction of the left arm, internal and external rotation of the left arm, left hand system specialist strength decreased, muscle strength 4 out of 5 with flexion of the left hip Muscle strength 5 out of 5 with dorsi/ plantar flexion of bilateral feet Sensation decreased left face, left foot. Sensation intact elsewhere Psych: Alert, oriented, appropriate affect Results CBC & Chem 7: 04/20/19 15:42 04/20/19 15:42 Labs: Abnormal Lab Results - Last 24 Hours (Table) 04/20/19 04/20/19 Range/Units 15:42 15:45 Carbon Dioxide 21 L (22-30) mmol/L POC Glucose (mg/dL) 104 H (75-99) mg/dL Chest x-ray: report reviewed CT Scan - head: report reviewed Thrombosis Risk Factor Assmnt - DVT/VTE Prophylaxis DVT/VTE Prophylaxis: Pharmacologic Prophylaxis ordered Assessment and Plan Assessment: TIA versus CVA his symptoms are improving -Aspirin, statin -Neurology consult -MRI brain -Check lipid profile and A1C -Echocardiogram with bubble study -Telemetry monitoring -If signs of stroke on MRI will likely need hypercoagulable workup -PT/OT/speech evaluation -Follow blood pressure and allow permissive hypertension if happens Tobacco abuse -Cessation -Nicotine replacement Anxiety -Continue Lexapro The patient is admitted with an anticipated greater than 2 midnight stay for evaluation of CVA. DVT prophylaxis: Heparin Discussed with: Patient, Christiano, ED physician Anticipated discharge date: 2-[address]: home A total of 60 minutes was spent on the care of this complex patient more than 50% of the time was spent in counseling and care coordination.
[2019-04-20] MEDS ORDERED: INFLUENZA VACCINE (6 MOS+) 60 MCG/0.5 ML SYRINGE IM ONE (18:57)
[2019-04-20] MEDS: SODIUM CHLORIDE 0.9% 1,000 ML IV SCH (19:04)
[2019-04-20] MEDS: NICOTINE 14MG/24HR PATCH TRANSDERM SCH (20:13)
[2019-04-20] MEDS: HEPARIN SODIUM,PORCINE 5,000 UNIT/ML 1 ML VIAL SQ SCH (23:04)
[2019-04-21] MEDS: ESCITALOPRAM 20 MG TAB PO SCH ×2 (00:10→20:35)
[2019-04-21] MEDS: ACETAMINOPHEN TAB 325 MG TAB PO PRN ×2 (03:40→12:04)
[2019-04-21] MEDS: SODIUM CHLORIDE 0.9% 1,000 ML IV SCH (05:11)
[2019-04-21 06:56] LABS: Cholesterol 223 mg/dL (<200); HDL Cholesterol 68 mg/dL (40-60); LDL Cholesterol,Calculated 146 mg/dL (0-99); Triglycerides 45 mg/dL (<150)
[2019-04-21] MEDS: HEPARIN SODIUM,PORCINE 5,000 UNIT/ML 1 ML VIAL SQ SCH ×3 (08:40→23:21)
[2019-04-21] MEDS: NICOTINE 14MG/24HR PATCH TRANSDERM SCH (08:40)
[2019-04-21] MEDS ORDERED: NICOTINE 14MG/24HR PATCH TRANSDERM SCH (09:00)
--- NOTE | 2019-04-21 11:00 | ECHOF ---
Referral Reason:Thrombus MEASUREMENTS -------- HEIGHT: 160.0 cm WEIGHT: 81.6 kg BP: 106/61 RVIDd: 3.0 cm (< 3.3) IVSd: 0.7 cm (0.6 - 1.1) LVIDd: 3.9 cm (3.9 - 5.3) LVPWd: 0.9 cm (0.6 - 1.1) IVSs: 1.1 cm LVIDs: 2.7 cm LVPWs: 1.4 cm LAESV Index (A-L): 19.52 ml/m Ao Diam: 2.8 cm (2.0 - 3.7) AV Cusp: 2.1 cm (1.5 - 2.6) LA Diam: 2.9 cm (2.7 - 3.8) MV EXCURSION: 14.967 mm (> 18.000) MV EF SLOPE: 175 mm/s (70 - 150) EPSS: 0.4 cm MV E Oscar: 0.91 m/s MV DecT: 213 ms MV A Oscar: 0.63 m/s MV E/A Ratio: 1.44 RAP: 5.00 mmHg RVSP: 20.85 mmHg FINDINGS -------- Sinus rhythm. This was a technically good study. The left ventricular size is normal. Left ventricular wall thickness is normal. Overall left vent ricular systolic function is normal with, an EF between 55 - 60 %. The diastolic filling pattern is normal for the age of the patient 8.98. The right ventricle is normal in size. The left atrial size is normal. The right atrial size is normal. Contrast study was performed with 1 iv injections of 8 ccs of agitated normal saline, with cough. Aneurysmal Interatrial septum. Positive for PFO. Right to left shunt seen with Bubble study. ADVISED SAUL. The aortic valve is trileaflet and appears structurally normal. The mitral valve is normal. The mitral valve leaflets are mildly thickened. Mild mitral regurgita tion is present. The tricuspid valve appears structurally normal. Mild tricuspid regurgitation present. Right vent ricular systolic pressure is normal at < 35 mmHg. There is no pulmonic regurgitation present. The aortic root size is normal. Normal inferior vena cava with normal inspiratory collapse consistent with estimated right atrial pre ssure of 5 mmHg. There is no pericardial effusion. CONCLUSIONS -------- 1. Sinus rhythm. 2. This was a technically good study. 3. The left ventricular size is normal. 4. Left ventricular wall thickness is normal. 5. Overall left ventricular systolic function is normal with, an EF between 55 - 60 %. 6. The diastolic filling pattern is normal for the age of the patient 8.98 7. The right ventricle is normal in size. 8. The left atrial size is normal. 9. The right atrial size is normal. 10. Contrast study was performed with 1 iv injections of 8 ccs of agitated normal saline, with cough . 11. Aneurysmal Interatrial septum. Positive for PFO. Right to left shunt seen. 12. The aortic valve is trileaflet and appears structurally normal. 13. The mitral valve is normal. 14. The mitral valve leaflets are mildly thickened. 15. Mild mitral regurgitation is present. 16. The tricuspid valve appears structurally normal. 17. Mild tricuspid regurgitation present. 18. Right ventricular systolic pressure is normal at < 35 mmHg. 19. There is no pulmonic regurgitation present. 20. The aortic root size is normal. 21. Normal inferior vena cava with normal inspiratory collapse consistent with estimated right atrial pressure of 5 mmHg. 22. There is no pericardial effusion. INDUSTRIAL TECHNOLOGY EDUCATION TEACHER: Mayra Nevarez RDCS
--- NOTE | 2019-04-21 12:19 | MR ---
EXAMINATION TYPE: MR brain wo/w con DATE OF EXAM: 04/21/2019 COMPARISON: CT dated 04/20/2019 HISTORY: CVA, altered mental status. TECHNIQUE: Multiplanar, multisequence images of the brain and brainstem is performed without and with IV contras t, utilizing 7.5 mL intravenous Gadavist . FINDINGS: Diffusion weighted images demonstrate no evidence of a recent infarct or other diffusion ab normality. There is no extra-axial fluid collection or significant white matter signal abnormality. The ventricular system and cisternal spaces are normal in size and appearance. The brain volume is age appropriate. Midline structures demonstrate normal morphology other than an incidentally noted nonenhancing 5 mm p ineal gland cyst. The craniocervical junction appears within normal limits. Post contrast images de monstrate no abnormal enhancement. The dural venous sinuses appear patent. The visualized sinuses are clear and the globes are intact. IMPRESSION: No acute infarct, midline shift or mass effect. Incidentally noted nonenhancing 5 mm pine al gland cyst, otherwise unremarkable exam. No abnormal postcontrast enhancement.
--- NOTE | 2019-04-21 14:15 | CONS ---
CONSULTATION CHIEF COMPLAINT: TELMA Higginbotham is a 38-year-old lady with history of depression, who is admitted to the hospital with symptoms of left facial droop, tingling and numbness involving left side of her body and with some weakness. Cardiology has been consulted as an echocardiogram showed evidence of [id number] shunt which is at agitated saline contrast study. At the time of my evaluation, her confusion has resolved and most of the neurological deficit that she came in with has improved. The patient states that she had a TIA back in February of 2012, is not quite sure what kind of workup she had. PAST MEDICAL HISTORY: Significant for TIA, there is no history of hypertension diabetes, dyslipidemia. MEDICATIONS: Include Zyrtec and Lexapro. ALLERGIES: MACROBID. FAMILY HISTORY: Negative for premature coronary artery disease. SOCIAL HISTORY: Negative for current smoking, EtOH abuse or drug abuse. PAST SURGICAL HISTORY: Significant for cholecystectomy. REVIEW OF SYSTEMS: HEENT: Significant for facial droop. CARDIAC: Negative. RESPIRATORY: Negative. GI: Negative. GENITOURINARY: Negative ALLERGY/IMMUNOLOGY: Negative. SKIN: Negative. MUSCULOSKELETAL: Negative. ENDOCRINE: Negative. HEMATOLOGICAL: Negative. CONSTITUTIONAL: Negative. ONCOLOGICAL: Negative. HARNESS PLACER As described above. PHYSICAL EXAM: Patient appears comfortable at rest. Vital signs are stable. There is no jugular venous distention. Carotid upstroke is normal. There is no bruit. Chest exam reveals good air entry bilaterally. Heart exam reveals first and second heart sounds. No gallop. No murmur. No rub. Abdomen is soft, nontender. Exam of extremities did not reveal any edema. Peripheral pulses are felt. LABS: Show a hemoglobin of 14.6, platelet count is 290, potassium is 3.8, creatinine is 0.7. Troponin is negative. EKG shows normal sinus rhythm and is within normal limits. An echocardiogram showed normal LV systolic function with [id number] shunt with agitated saline contrast study. ASSESSMENT: 1. Cerebrovascular secondary to thromboembolic the 2nd ascites, CVA, rule out cardiac causes. 2. Patent foramen ovale. PLAN: I am going to obtain a SAUL on her tomorrow. Will wait for Neurology input, if indeed there is a PFO since this is second neurological event that she had, we should consider device closure. I discussed these issues at length with the patient and her . They understand and are in agreement with the plans. MMODL / IJN: [id number] /
[2019-04-21] MEDS: ASPIRIN 325 MG TAB PO SCH (15:02)
--- NOTE | 2019-04-21 15:02 | P.HPIM ---
History of Present Illness H&P Date: 04/21/19 This is a 38-year-old female patient of Dr. Salgado with past medical history of TIA in Feb 2012, history of UTI, and tobacco use and dependence. Patient presented due to left facial numbness, left arm weakness, left face drooping. Patient denies any use of control. She states she has a IUD. At the time of this evaluation, patient states that she is still having all trouble with her left leg and left arm when she uses but when resting she feels normal. Patient came into [facility] emergency center for evaluation. Her initial vital signs within normal limits and laboratory analysis was unremarkable. CT head showed no acute intracranial hemorrhage, mass effect, or midline shift. CT angiogram of the head and neck showed no sizable intracranial aneurysm or large special occlusion. Initiate stroke work was activated and did not recommend TPA secondary to how mild her symptoms are. NIH was 2. She received a dose of aspirin in the emergency department. She also received a dose of prednisone with concerns of Vásquez's palsy. Arrangements are made for admission for TIA versus stroke. Patient was admitted to the cardiac stepdown unit. She subsequently underwent echocardiogram with bubble study that was positive and cardiology consult was added for SAUL. MRI of the brain revealed no acute infarct, midline shift or mass effect. 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 No abnormal postcontrast enhancement. h. Review of Systems Constitutional: Denies chills, Denies fatigue, Denies fever, Denies lethargy, Denies malaise, Denies poor appetite Eyes: denies blurred vision, denies pain Ears, nose, mouth and throat: Reports vertigo, Denies headache, Denies nasal congestion, Denies nasal discharge, Denies sore throat Cardiovascular: Denies chest pain, Denies decreased exercise tolerance, Denies dyspnea on exertion, Denies edema, Denies leg edema, Denies shortness of breath, Denies syncope Respiratory: Denies cough, Denies cough with sputum, Denies dyspnea, Denies excessive sputum, Denies hemoptysis, Denies home oxygen, Denies sleep apnea, Denies snoring Gastrointestinal: Denies abdominal pain, Denies diarrhea, Denies loss of appetite, Denies nausea, Denies vomiting Genitourinary: Denies dysuria, Denies hematuria, Denies urgency, Denies urinary frequency Musculoskeletal: Denies frequent falls, Denies gait dysfunction, Denies muscle weakness, Denies myalgias Integumentary: Denies pruritus, Denies rash, Denies wounds Neurological: Reports motor disturbance, Reports paresthesias, Reports vertigo, Denies change in mentation, Denies confusion, Denies double vision, Denies numbness, Denies seizures, Denies syncope, Denies weakness Psychiatric: Denies anxiety, Denies depression Past Medical History Past Medical History: CVA/TIA Additional Past Medical History / Comment(s): TIA February 2012. Hx of UTI History of Any Multi-Drug Resistant Organisms: None Reported Past Surgical History: Cholecystectomy Additional Past Surgical History / Comment(s): Colonoscopy Past Psychological History: No Psychological Hx Reported Smoking Status: Current every day smoker Past Alcohol Use History: Occasional Additional Past Alcohol Use History / Comment(s): Patient is a smoker of one half to three-quarter pack per day for 20 years. She denies alcohol monthly. No illicit drug use. Patient works for [employer]. Past Drug Use History: None Reported - Past Family History Father History Unknown: Yes Additional Family Medical History / Comment(s): Patient does not know her father. Mother Additional Family Medical History / Comment(s): Mother at age 55 after a fall and subarachnoid bleed. She had history of sepsis prior to that and AML. Sister(s) Additional Family Medical History / Comment(s): Patient has one sister and 2 brothers with no major medical problems. Patient has 2 sons and 1 daughter with no major medical problems. Medications and Allergies Home Medications Medication Instructions Recorded Confirmed Type Cetirizine HCl [Zyrtec] 10 mg PO DAILY PRN 04/20/19 04/20/19 History Escitalopram Oxalate [Lexapro] 20 mg PO HS 04/20/19 04/20/19 History Allergies Allergy/AdvReac Type Severity Reaction Status Date / Time nitrofurantoin Allergy Anaphylaxis Verified 04/20/19 17:31 [From Macrobid] Physical Exam Vitals: Vital Signs Temp Pulse Pulse Resp BP BP Pulse Ox 04/21/19 03:40 97.8 F 66 16 106/61 97 04/20/19 23:08 98.1 F 79 16 107/66 96 04/20/19 20:00 98 F 77 16 107/63 95 04/20/19 18:31 98.1 F 81 18 99/67 97 04/20/19 18:20 98.1 F 81 18 99/67 97 04/20/19 18:08 98.1 F 81 18 99/67 97 04/20/19 17:39 98.2 F 75 18 100/63 97 04/20/19 17:09 87 18 107/69 96 04/20/19 17:08 97.9 F 76 18 104/63 97 04/20/19 15:31 98.1 F 94 16 137/80 98 Intake and Output 04/20/19 04/21/19 04/21/19 22:59 06:59 14:59 Intake Total 800 500 120 Balance 800 500 120 Intake: Amount of Fluid Infused ( 800 ml) Intake, IV Titration 100 Amount Sodium Chloride 0.9% 1, 100 000 ml @ 100 mls/hr IV . Q10H [facility] Rx#:[id number] Oral 400 120 Other: # Voids 0 3 Weight 81.647 kg 81.7 kg Gen: This is a 38-year-old female. Patient is sitting up in bed and appears to be comfortable and in no acute distress. HEENT: Head is atraumatic, normocephalic. Pupils equal, round. Sclerae is anicteric. NECK: Supple. No JVD. No lymphadenopathy. No thyromegaly. LUNGS: Clear to auscultation. No wheezes or rhonchi. No intercostal retractions. HEART: Regular rate and rhythm. No murmur. ABDOMEN: Soft. Bowel sounds are present. No masses. No tenderness. EXTREMITIES: No pedal edema. No calf tenderness. NEUROLOGICAL: Patient is awake, alert and oriented x3. Cranial nerves 2 through 12 are grossly intact. Muscle strength equal bilaterally upper and lower extremities. Results CBC & Chem 7: 04/20/19 15:42 04/20/19 15:42 Labs: Abnormal Lab Results - Last 24 Hours (Table) 04/20/19 04/20/19 04/21/19 Range/Units 15:42 15:45 05:44 Carbon Dioxide 21 L (22-30) mmol/L POC Glucose (mg/dL) 104 H (75-99) mg/dL Cholesterol 223 H (<200) mg/dL LDL Cholesterol, Calc 146 H (0-99) mg/dL HDL Cholesterol 68 H (40-60) mg/dL Thrombosis Risk Factor Assmnt - DVT/VTE Prophylaxis DVT/VTE Prophylaxis: Pharmacologic Prophylaxis ordered - Choose All That Apply Other Risk Factors: No Assessment and Plan Plan: 1. TIA with negative MRI. Continue aspirin, statin, neurology consult. MRI as above. SAUL with cardiology. Aspirin 325 mg daily 2. Patent foramen ovale. Consult cardiology for SAUL scheduled for tomorrow. 3. History of CVA in 2011, no residuals. 4. Tobacco use and dependence. Smoking cessation. Nicotine patch 5. Seasonal ALLERGIES. 6. Recurrent depression. Continue Lexapro 20 mg at bedtime. 7. DVT prophylaxis. Heparin subcu. Patient will be admitted to the hospital for a minimum of 2 night stay. Discharge plan: home Impression and plan of care have been directed as dictated by the signing madeleine palumbo. Rosa Elena Jenkins nurse practitioner acting as scribe for signing physician.
--- NOTE | 2019-04-21 21:55 | P.CNNES ---
History of Present Illness Consult date: 04/21/19 Reason for Consult: Concern for stroke Chief complaint: L-sided numbness History of Present Illness: HISTORY OF PRESENT ILLNESS: Thank you for allowing me to evaluate Ms. Anahy Kwon. Ms. Kwon is a 38 year-old woman with PMhx of TIA in 2011 who presents to [facility] for L facial numbness and facial droop. Patient states that she first started having ear fullness in his L ear which then led to L facial numbness. She had looked at herself in the mirror and her face looked normal to her. Patient then started having LUE/LLE weakness. When patient's 17 year-old daughter came home, patient was about to be taken to the hospital and at that time, patient was told that she had L facial droop along with some changes with L eye closure. Patient denies ever having any facial symptoms. In 2011, 8 years ago, patient had an episode of bilateral peripheral vision loss, which patient was told was a TIA. Patient's symptoms lasted for some time at the time, but she doesn't remember how long it lasted. At this time, she feels much better. Denies any recent sickness, fever, headache, vision changes, nausea, vomiting, dizziness, chest pain, SOB, diarrhea. Patient denies ever having symptoms of numbness or weakness other than this time. Patient denies any previous history of complete vision loss or pain with movement. PAST MEDICAL HISTORY: TIA PAST SURGICAL HISTORY: Cholecystectomy HOME MEDICATIONS: Escitalopram ALLERGIES: Nitrofurantoin SOCIAL HISTORY: Current everyday smoker FAMILY HISTORY: No history of stroke, MS. REVIEW OF SYSTEMS: The 14 systems are reviewed and no additional points are identified compared to the review of systems documented history and physical PHYSICAL EXAMINATION: VITAL SIGNS: T 97.8 HR 66 RR 16 BP 106/61 O2 sat 97% on RA GEN.: NAD, pleasant and cooperative HEENT: NCAT, sclera without icterus NECK: Supple SKIN AND EXTREMITIES: Warm to touch, no edema NEURO: MENTAL STATUS: Patient alert and oriented to self, place, time. Able to name the current president. Speech fluent, able to name and repeat, following all commands readily. No right and left disorientation, neglect. CRANIAL NERVES II THROUGH XII: II: Pupils are equal and reactive to light symmetrically. No afferent pupillary defect. Visual valles are intact. III, IV, : No ptosis. Extraocular movements full. No nystagmus. V: Facial sensation intact from V1-3. VII. Unequal eyebrow raise. L facial droop when smiling VIII: Hearing intact to finger rub bilaterally. IX, X: Symmetric palate elevation. XI: Shoulder shrug intact. XII: Tongue midline without fasciculation or atrophy. MOTOR: Normal bulk/tone. No tremor. Mild LUE pronator drift. Strength is 5/5 in RUE/RLE. 4/5 strength in LUE/LLE SENSORY: Intact to light touch in all 4 extremities. Romberg is negative. REFLEXES: 2+ throughout. Toes are downgoing. No clonus. Hany's is present in both hands, L more than R COORDINATION: Finger to nose intact. No dysmetria. GAIT: Narrow-based and stable. Able to toe/heel/tandem walk DIAGNOSTIC TESTING: LABORATORY: WBC 10.3 Hgb 14.6 Platelet 290 Na 137 K 3.8 Cl 107 CO2 21 BUN 16 Cr 0.78 glucose 104 AST 24 ALT 13 AlkPhos 93 Troponin <0.012 TC 223 LDL 146 HDL 68 TG 45 IMAGING: CT Head w/o contrast 04/20/2019: No acute intracranial hemorrhage, mass effect, or midline shift is seen CTA Head and Neck w/ and w/o contrast 04/20/2019: No sizable intracranial aneurysm or large vessel occlusion. No evidence of dissection of head or neck. ASSESSMENT: 38 year-old woman with PMhx of TIA in 2011 who presents to [facility] for L facial numbness and facial droop. Patient with history of another neurological symptom, i.e. peripheral vision loss. MRI brain w/ and w/o contrast negative for stroke or enhancing lesion. On exam, patient with L Vásquez's palsy along with LUE/LLE weakness and b/l positive Summers's sign. Considering patient's age and ethnicity, multiple sclerosis on the differential. Patient could be having a Vásquez's palsy plus, but one-sided symptoms unusual. TTE showing a PFO. RECOMMENDATIONS: 1. MRI c-spine and t-spine w/ and w/o contrast 2. may consider LP for CSF studies 3. Patient may undergo SAUL tomorrow as patient found with PFO. 4. will check Vitamin D level 5. Neurology will continue to follow. Past Medical History Past Medical History: CVA/TIA Additional Past Medical History / Comment(s): TIA February 2012. Hx of UTI History of Any Multi-Drug Resistant Organisms: None Reported Past Surgical History: Cholecystectomy Additional Past Surgical History / Comment(s): Colonoscopy Past Psychological History: No Psychological Hx Reported Smoking Status: Current every day smoker Past Alcohol Use History: Occasional Past Drug Use History: None Reported - Past Family History Father History Unknown: Yes Mother Additional Family Medical History / Comment(s): acute lukemia, decreased from head bleed Sister(s) Additional Family Medical History / Comment(s): Patient has one sister and 2 brothers with no major medical problems. Patient has 2 sons and 1 daughter with no major medical problems. Medications and Allergies Home Medications Medication Instructions Recorded Confirmed Type Cetirizine HCl [Zyrtec] 10 mg PO DAILY PRN 04/20/19 04/20/19 History Escitalopram Oxalate [Lexapro] 20 mg PO HS 04/20/19 04/20/19 History Allergies Allergy/AdvReac Type Severity Reaction Status Date / Time nitrofurantoin Allergy Anaphylaxis Verified 04/20/19 17:31 [From Macrobid] Physical Examination - Vital Signs Vital Signs: Vital Signs Temp Pulse Pulse Resp BP BP Pulse Ox 04/21/19 03:40 97.8 F 66 16 106/61 97 04/20/19 23:08 98.1 F 79 16 107/66 96 04/20/19 20:00 98 F 77 16 107/63 95 04/20/19 18:31 98.1 F 81 18 99/67 97 04/20/19 18:20 98.1 F 81 18 99/67 97 04/20/19 18:08 98.1 F 81 18 99/67 97 04/20/19 17:39 98.2 F 75 18 100/63 97 04/20/19 17:09 87 18 107/69 96 04/20/19 17:08 97.9 F 76 18 104/63 97 04/20/19 15:31 98.1 F 94 16 137/80 98 Intake and Output 04/20/19 04/21/19 04/21/19 22:59 06:59 14:59 Intake Total 800 500 120 Balance 800 500 120 Intake: Amount of Fluid Infused ( 800 ml) Intake, IV Titration 100 Amount Sodium Chloride 0.9% 1, 100 000 ml @ 100 mls/hr IV . Q10H [facility] Rx#:[id number] Oral 400 120 Other: # Voids 0 3 Weight 81.647 kg 81.7 kg Results - Laboratory Findings CBC and BMP: 04/20/19 15:42 04/20/19 15:42 Abnormal Lab Findings: Abnormal Labs 04/20/19 04/20/19 04/21/19 15:42 15:45 05:44 Carbon Dioxide 21 L POC Glucose (mg/dL) 104 H Cholesterol 223 H LDL Cholesterol, Calc 146 H HDL Cholesterol 68 H
[2019-04-22] MEDS: SODIUM CHLORIDE 0.9% 1,000 ML IV SCH ×2 (02:41→02:42)
[2019-04-22] MEDS: NICOTINE 14MG/24HR PATCH TRANSDERM SCH (09:01)
[2019-04-22] MEDS: HEPARIN SODIUM,PORCINE 5,000 UNIT/ML 1 ML VIAL SQ SCH ×2 (09:02→16:18)
[2019-04-22] MEDS ORDERED: fentaNYL (PF) 50 MCG/ML 2 ML AMP ONE (10:55)
--- NOTE | 2019-04-22 11:04 | MR ---
EXAMINATION TYPE: MR cspine/tspine wo/w con DATE OF EXAM: 04/22/2019 COMPARISON: None HISTORY: LUE/LLE weakness, possible MS TECHNIQUE: Multiplanar, multisequence images of the cervical and thoracic spine is performed without and with IV contrast, utilizing 7.5 mL intravenous Gadavist FINDINGS: Cervical spine: Cervical vertebral bodies show preserved height, alignment, and bone marrow signal. D isc spaces are maintained. Cervical cord signal is unremarkable. There is no evident spinal stenosis, foraminal encroachment, or disc herniation. No abnormal enhancement following contrast administratio n. Mild spinal curvature noted in the thoracic spine. Thoracic spine: Thoracic vertebral bodies show preserved height, alignment, and bone marrow signal. T here is no evident spinal stenosis or foraminal encroachment. Disc spaces are maintained. Mild spondy losis present at the midthoracic spine. Thoracic cord signal is maintained. No evident paraspinal mas s. The conus is at T12 and shows an unremarkable appearance. No abnormal enhancement following contra st administration. IMPRESSION: Negative MRI of the thoracic and cervical spine.
[2019-04-22] MEDS: BENZOCAINE SPRAY 1 CAN MUCOUS MEM ONE ×2 (11:11→11:12)
[2019-04-22] MEDS ORDERED: fentaNYL (PF) 50 MCG/ML 2 ML AMP IV ONE (11:12)
[2019-04-22] MEDS ORDERED: MIDAZOLAM 2 MG/2 ML VIAL IV ONE (11:12)
[2019-04-22] MEDS ORDERED: SODIUM CHLORIDE 0.9% 500 ML 500 ML IV ONE (11:16)
[2019-04-22] MEDS ORDERED: MIDAZOLAM 2 MG/2 ML VIAL IVP ONE (11:17)
[2019-04-22] MEDS ORDERED: SODIUM CHLORIDE 0.9% 1,000 ML IV SCH (11:45)
--- NOTE | 2019-04-22 12:07 | ECHOT ---
TRANSESOPHAGEAL ECHOCARDIOGRAM INDICATION: CVA. PROCEDURE NOTE: After obtaining informed consent, transesophageal echocardiogram was performed in left lateral position using an Omni plane probe. Local and IV sedation were obtained using Xylocaine spray, intravenous Versed and fentanyl. Patient tolerated the procedure well without any obvious immediate complications. Patient received moderate conscious sedation. Total sedation time was 14 minutes. FINDINGS: 1. Interatrial septum: Interatrial septum appears aneurysmally dilated. There is evidence of left to right shunt by color-flow Doppler and [id number] shunt by agitated saline contrast study. 2. Mitral valve: Mitral valve appears anatomically normal. There is no evidence of mitral stenosis or regurgitation. 3. Aortic valve is a 3-leaflet valve. There is no evidence of aortic stenosis or regurgitation. 4. Tricuspid valve appears normal. 5. Left ventricle has normal size and systolic function. 6. Left atrium, right atrium, right ventricle seen within normal limits. CONCLUSIONS: Aneurysmal interatrial septum with feik-vw-uvumy and yozdz-[id number]-ecmj shunt across the interatrial septum. PLAN: I am going to request Dr. Samuel to evaluate the SAUL and the patient and advise on device closure of the interatrial septum. MMODL / IJN: [id number] /
--- NOTE | 2019-04-22 13:49 | P.PN ---
Subjective Progress Note Date: 04/22/19 This is a 38-year-old female patient of Dr. Salgado with past medical history of TIA in Feb 2012, history of UTI, and tobacco use and dependence. Patient presented due to left facial numbness, left arm weakness, left face drooping. Patient denies any use of control. She states she mckoy s a IUD. At the time of this evaluation, patient states that she is still having all trouble with her left leg and left arm when she uses but when resting she feels normal. Patient came into [facility] emergency center for evaluation. Her initial vital signs within normal limits and laboratory analysis was unremarkable. CT head showed no acute intracranial hemorrhage, mass effect, or midline shift. CT angiogram of the head and neck showed no sizable intracranial aneurysm or large special occlusion. Initiate stroke work was activated and did not recommend TPA secondary to how mild her symptoms are. NIH was 2. She received a dose of aspirin in the emergency department. She also received a dose of prednisone with concerns of Vásquez's palsy. Arrangements are made for a dmission for TIA versus stroke. Patient was admitted to the cardiac stepdown unit. She subsequently underwent echocardiogram with bubble study that was positive and cardiology consult was added for SAUL. MRI of the brain revealed no acute infarct, midline shift or mass effect. 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 No abnormal postcontrast enhancement. /: Patient underwent MRI of the cervical spine and thoracic spine which was negative. SAUL was performed by Dr. Salamanca which found anterior atrial septum appears aneurysmally dilated. There is evidence of [id number] shunt and right to left shunt by agitated saline contrast study. No evidence of mitral stenosis or regurgitation. Aortic valve is 3 leaflet with no evidence of aortic stenosis or regurgitation. Tricuspid valve appears normal. Left ventricular normal size and systolic function. Left atrium, right atrium, right ventricle within normal limits. Dr. Salamanca will discuss results with Dr. Samuel and advice on closure of the intra-atrial septum. Patient has been afebrile, heart rate 86, blood pressure 124/75, pulse ox 99% on 3 L nasal cannula. Triglycerides 45, cholesterol 223, LDL 146, HDL 68. Review of Systems Constitutional: Denies chills, Denies fatigue, Denies fever, Denies lethargy, Denies malaise, Denies poor appetite Eyes: denies blurred vision, denies pain Ears, nose, mouth and throat: Reports vertigo, Denies headache, Denies nasal congestion, Denies nasal discharge, Denies sore throat Cardiovascular: Denies chest pain, Denies decreased exercise tolerance, Denies dyspnea on exertion, Denies edema, Denies leg edema, Denies shortness of breath, Denies syncope Respiratory: Denies cough, Denies cough with sputum, Denies dyspnea, Denies excessive sputum, Denies hemoptysis, Denies home oxygen, Denies sleep apnea, Denies snoring Gastrointestinal: Denies abdominal pain, Denies diarrhea, Denies loss of appetite, Denies nausea, Denies vomiting Genitourinary: Denies dysuria, Denies hematuria, Denies urgency, Denies urinary frequency Musculoskeletal: Denies frequent falls, Denies gait dysfunction, Denies muscle weakness, Denies myalgias Integumentary: Denies pruritus, Denies rash, Denies wounds Neurological: Denies motor disturbance, denies paresthesias, denies vertigo, Denies change in mentation, Denies confusion, Denies double vision, Denies numbness, Denies seizures, Denies syncope, Denies weakness Psychiatric: Denies anxiety, Denies depression Objective - Vital Signs Vital signs: Vital Signs Temp 98.1 F 04/22/19 04:55 Pulse 66 04/22/19 04:55 Resp 16 04/22/19 04:55 BP 91/54 04/22/19 04:55 Pulse Ox 97 04/22/19 04:55 Intake & Output 04/21/19 04/22/19 04/22/19 18:59 06:59 18:59 Intake Total 245 650 Balance 245 650 Weight 83.6 kg Intake: Intake, IV Titration 500 Amount Sodium Chloride 0.9% 1, 500 000 ml @ 100 mls/hr IV . Q10H [facility] Rx#:[id number] Oral 245 150 Other: # Voids 1 2 0 # Bowel Movements 0 - Exam Gen: This is a 38-year-old female. Patient is sitting up in bed and appears to be comfortable and in no acute distress. HEENT: Head is atraumatic, normocephalic. Pupils equal, round. Sclerae is anicteric. NECK: Supple. No JVD. No lymphadenopathy. No thyromegaly. LUNGS: Clear to auscultation. No wheezes or rhonchi. No intercostal retractions. HEART: Regular rate and rhythm. No murmur. ABDOMEN: Soft. Bowel sounds are present. No masses. No tenderness. EXTREMITIES: No pedal edema. No calf tenderness. Dorsalis pedis +2 bilaterally. NEUROLOGICAL: Patient is awake, alert and oriented x3. Cranial nerves 2 through 12 are grossly intact. Muscle strength equal bilaterally upper and lower extremities. - Labs CBC & Chem 7: 04/20/19 15:42 04/20/19 15:42 Assessment and Plan Plan: 1. TIA with negative MRI. Continue aspirin, statin, neurology consult appreciated. MRI of the brain, cervical spine and thoracic spine as above. Aspirin 325 mg daily 2. Aneurysmal intra-atrial septum with fvkc-pb-ulbhn and nzakl-vu-jcdf shunt status post SAUL. Cardiology consult appreciated. 3. History of CVA in 2011, no residuals. 4. Tobacco use and dependence. Smoking cessation. Nicotine patch 5. Seasonal ALLERGIES. 6. Recurrent depression. Continue Lexapro 20 mg at bedtime. 7. Dyslipidemia. Lipitor added. 8. DVT prophylaxis. Heparin subcu. Discharge plan: home Impression and plan of care have been directed as dictated by the signing physician. Rosa Elena Jenkins nurse practitioner acting as scribe for signing physician.
[2019-04-22] MEDS: ASPIRIN 325 MG TAB PO SCH (16:18)
--- NOTE | 2019-04-22 16:47 | P.PN ---
Progress Note - Text Progress Note Date: 04/22/19 SUBJECTIVE: No acute overnight events. Patient feels better than yesterday. Denies headache, nausea, vomiting, dizziness, vision changes. PHYSICAL EXAMINATION: VITALS: T 98.1 HR 66 RR 16 BP 91/54 O2 sat 97% on RA GEN.: NAD, pleasant and cooperative HEENT: NCAT, sclera without icterus NECK: Supple SKIN AND EXTREMITIES: Warm to touch, no edema NEURO: MENTAL STATUS: Patient alert and oriented to self, place, time. Able to name t he current president. Speech fluent, able to name and repeat, following all commands readily. No right and left disorientation, neglect. CRANIAL NERVES II THROUGH XII: II: Pupils are equal and reactive to light symmetrically. No afferent pupillary defect. Visual valles are intact. III, IV, : No ptosis. Extraocular movements full. No nystagmus. V: Facial sensation intact from V1-3. VII. Unequal eyebrow raise. L facial droop when smiling VIII: Hearing intact to finger rub bilaterally. IX, X: Symmetric palate elevation. XI: Shoulder shrug intact. XII: Tongue midline without fasciculation or atrophy. MOTOR: Normal bulk/tone. No tremor. Mild LUE pronator drift. Strength is 5/5 in RUE/RLE. 4+/5 strength in LUE/LLE SENSORY: Intact to light touch in all 4 extremities. Romberg is negative. REFLEXES: 2+ throughout. Toes are downgoing. No clonus. Hany's is present in both hands, L more than R COORDINATION: Finger to nose intact. No dysmetria. GAIT: Narrow-based and stable. Able to toe/heel/tandem walk DIAGNOSTIC TESTING: LABORATORY: WBC 10.3 Hgb 14.6 Platelet 290 Na 137 K 3.8 Cl 107 CO2 21 BUN 16 Cr 0.78 glucose 104 AST 24 ALT 13 AlkPhos 93 Troponin <0.012 TC 223 LDL 146 HDL 68 TG 45 IMAGING: MRI brain w/ and w/o contrast 04/21/2019: No acute infarct, midline shift or mass effect. 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 No abnormal postcontrast enhancement. MRI c-spine and t-spine w/ and w/o contrast 04/21/2019: No lesions. Negative study CT Head w/o contrast 04/20/2019: No acute intracranial hemorrhage, mass effect, or midline shift is seen CTA Head and Neck w/ and w/o contrast 04/20/2019: No sizable intracranial aneurysm or large vessel occlusion. No evidence of dissection of head or neck. ASSESSMENT: 38 year-old woman with PMhx of TIA in 2012 who presents to [facility] for L facial numbness and facial droop. Patient with history of another neurological symptom, i.e. peripheral vision loss. MRI brain w/ and w/o contrast negative for stroke or enhancing lesion. On exam, patient with L Vásquez's palsy along with LUE/LLE weakness and b/l positive Summers's sign. Considering patient's age and ethnicity, multiple sclerosis on the differential. Patient could be having a Vásquez's palsy plus, but one-sided symptoms unusual. TTE showing a PFO. Symptoms in 2012 and this time both lasted for more than 24 hours. Cannot rule out MRI negative stroke. MRI brain w/o contrast with incidental pineal gland cyst, otherwise unremarkable. MRI c-spine and t-spine w/ and w/o contrast unremarkable. Patient would benefit from getting a CSF study, both for MS diagnosis and cytology for the incidental pineal gland cyst, which can be done as outpatient. RECOMMENDATIONS: 1. Prednisone 60mg qday and valacyclovir 1000mg BID for 1 week for Vásquez's Palsy 2. Vitamin D level 3. Continue with ASA and statin 4. Pt with PFO. Awaiting Dr. Sosa to see the pt prior to getting discharged for PFO closure as outpatient. 5. Neurology outpatient follow-up for incidental finding of pineal cyst (5mm) and additional work-up for possible MS 6. Discussed ED precautions: return to ED if having severe headache, nausea, vomiting, vision deficits, speech difficulty, facial asymmetry, weakness, numbness or tingling. 7. Neurology will sign off at this time. Please contact with additional questions or concerns.
[2019-04-22] MEDS: valACYclovir HCL 1,000 MG TABLET PO SCH (18:49)
[2019-04-22] MEDS: predniSONE 20 MG TAB PO SCH (18:49)
[2019-04-22] MEDS: ESCITALOPRAM 20 MG TAB PO SCH (20:35)
[2019-04-22] MEDS ORDERED: ATORVASTATIN 40 MG TAB PO SCH (21:00)
[2019-04-23] MEDS: HEPARIN SODIUM,PORCINE 5,000 UNIT/ML 1 ML VIAL SQ SCH ×2 (00:12→08:51)
[2019-04-23] MEDS: predniSONE 20 MG TAB PO SCH (08:48)
[2019-04-23] MEDS: valACYclovir HCL 1,000 MG TABLET PO SCH (08:48)
[2019-04-23] MEDS: ACETAMINOPHEN TAB 325 MG TAB PO PRN (08:50)
[2019-04-23] MEDS: NICOTINE 14MG/24HR PATCH TRANSDERM SCH (08:51)
[2019-04-23 11:54] VITALS: BP 101/59; PULSE 72; RESP 16
[2019-04-23 12:22] VITALS: TEMP 98.2
--- NOTE | 2019-04-23 15:38 | P.PN ---
Subjective Progress Note Date: 04/23/19 Is a 8-year-old female with past medical history of TIA in 2012, nicotine dependence, UTI, presented to the hospital with symptoms of left facial numbness left arm weakness and left facial drooping. She denies at this time being on control, she has an IUD in place, used to take control years ago when she had her prior TIA. Patient had an echocardiogram with Doppler study performed which revealed evidence of PFO and subsequent to that patient underwent a SAUL by Dr. Salamanca which revealed aneurysmal intra-atrial septum with fhdt-mz-mlrye and right to left shunt across the septum. Dr. Reynoso did speak with Dr. Sosa regarding the patient, he also spoke at length with a neurology, who recommended further workup as an outpatient for possible multiple sclerosis. It is not clearly been identified whether or not the patient was felt to have had a TIA on this admission but it is a possibility. Patient is anticipating discharge home today, we will make her a follow-up appointment in the office with Dr. Reynoso and subsequent discussion regarding PFO closure. Objective - Vital Signs Vital signs: Vital Signs Temp 98.2 F 04/23/19 12:00 Pulse 72 04/23/19 12:00 Resp 16 04/23/19 12:00 BP 101/59 04/23/19 12:00 Pulse Ox 97 04/23/19 12:00 Intake & Output 04/22/19 04/23/19 04/23/19 18:59 06:59 18:59 Intake Total 580 320 180 Balance 580 320 180 Weight 83 kg Intake: IV 100 Oral 480 320 180 Other: Voiding Method Toilet Toilet # Voids 1 2 1 # Bowel Movements 0 0 - Exam PHYSICAL EXAMINATION: GENERAL: 88-year-old female in no acute distress at the time of examination HEENT: Head is atraumatic, normocephalic. Pupils equal, round. Sclera anicteric. Conjunctiva are clear. Mucous membranes of the mouth are moist. Neck is supple. There is no elevated jugular venous pressure. No carotid bruit is heard. HEART EXAMINATION: Heart S1, S2 normal. No murmur or gallop heard. CHEST EXAMINATION: Lungs are clear to auscultation and precussion. No chest wall tenderness is noted on palpation or with deep breathing. ABDOMEN: Soft, nontender. Bowel sounds are heard. No organomegaly noted. EXTREMITIES: 2+ peripheral pulses with no evidence of peripheral edema and no calf tenderness noted. NEUROLOGIC patient is awake, alert and oriented 3 . . - Labs CBC & Chem 7: 04/20/19 15:42 04/20/19 15:42 Labs: Abnormal Lab Results - Last 24 Hours (Table) 04/21/19 Range/Units 05:44 Vitamin D 25-Hydroxy 22.6 L (30.0-100.0) ng/mL Assessment and Plan Plan: Assessment and plan 1. Possible TIA with negative MRI. 2. Aneurysmal intra-atrial septum with xmoy-jd-glzip and ianhr-rl-yqkg shunt status post SAUL. ( Positive PFO). 3. History of TIA in 2011, no residuals. 4. Tobacco use and dependence. 5. Seasonal ALLERGIES. 6. Recurrent depression. 7. Dyslipidemia. Lipitor added. Plan Patient will be discharged home today. Follow-up appointment with Dr. Reynoso in the office, further discussion regarding PFO closure at that time. Dr. Reynoso did speak at length with Dr. Herbert, she stated that she will do further workup as an outpatient to assess for multiple sclerosis. No clear-cut evidence on this admission regarding whether or not patient actually had a TIA. DNP note has been reviewed, I agree with a documented findings and plan of care. Patient was seen and examined.
--- NOTE | 2019-04-24 09:45 | P.DS ---
Providers Date of admission: 04/20/19 17:07 Expected date of discharge: 04/23/19 Attending physician: Mary Lopez Consults: 04/20/19 18:08 Consult Physician Routine Consulting Provider: Nasrin Rudolph Consult Reason/Comments: CVA Do you want consulting provider notified?: Yes, Notify in am 04/21/19 10:42 Consult Physician Routine Consulting Provider: Elvin Salamanca Consult Reason/Comments: murtaza Do you want consulting provider notified?: Yes Primary care physician: Marcelino BoydDamian [facility] Course: This is a 38-year-old female patient of Dr. Salgado with past medical history of TIA in Feb 2012, history of UTI, and tobacco use and dependence. Patient presented due to left facial numbness, left arm weakness, left face drooping. Patient denies any use of control. She states she has a IUD. At the time of this evaluation, patient states that she is still having all trouble with her left leg and left arm when she uses but when resting she feels normal. Patient came into [facility] emergency center for evaluation. Her initial vital signs within normal limits and laboratory analysis was unremarkable. CT head showed no acute intracranial hemorrhage, mass effect, or midline shift. CT angiogram of the head and neck showed no sizable intracranial aneurysm or large special occlusion. Initiate stroke work was activated and did not recommend TPA secondary to how mild her symptoms are. NIH was 2. She received a dose of aspirin in the emergency department. She also received a dose of prednisone with concerns of Vásquez's palsy. Arrangements are made for admission for TIA versus stroke. Patient was admitted to the cardiac stepdown unit. She subsequently underwent echocardiogram with bubble study that was positive and cardiology consult was added for MURTAZA. MRI of the brain revealed no acute infarct, midline shift or mass effect. 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 No abnormal postcontrast enhancement. /4: Patient underwent MRI of the cervical spine and thoracic spine which was negative. MURTAZA was performed by Dr. Salamanca which found anterior atrial septum appears aneurysmally dilated. There is evidence of hdpm-yh-ntwxb shunt and right to left shunt by agitated saline contrast study. No evidence of mitral stenosis or regurgitation. Aortic valve is 3 leaflet with no evidence of aortic stenosis or regurgitation. Tricuspid valve appears normal. Left ventricular normal size and systolic function. Left atrium, right atrium, right ventricle within normal limits. Dr. Salamanca will discuss results with Dr. Samuel and advice on closure of the intra-atrial septum. Patient has been afebrile, heart rate 86, blood pressure 124/75, pulse ox 99% on 3 L nasal cannula. Triglycerides 45, cholesterol 223, LDL 146, HDL 68. 04/23: Patient has been seen by Dr. Herbert and she recommended treatment for left Vásquez's palsy and workup for multiple sclerosis as an outpatient. Patient will be set up for follow-up with Dr. Archer for further workup. Cardiology has cleared the patient for discharge with recommendations for follow-up in the office with Dr. Salamanca and subsequent discussion regarding PFO closure. Patient will be discharged home today in stable condition. Discharge diagnoses: 1. TIA with negative MRI, possible Vásquez's palsy. 2. Aneurysmal intra-atrial septum with tsyk-cl-pauxq and erquy-fb-rxqy shunt status post MURTAZA. 3. History of TIA in 2011, no residuals. 4. Tobacco use and dependence. 5. Seasonal ALLERGIES. 6. Recurrent depression. 7. Dyslipidemia. Discharge plan: home Impression and plan of care have been directed as dictated by the signing physician. Rosa Elena Jenkins nurse practitioner acting as scribe for signing physician. Patient Condition at Discharge: Good Plan - Discharge Summary Discharge Rx Participant: Yes New Discharge Prescriptions: New predniSONE [Deltasone] 60 mg PO DAILY #21 tab Nicotine 14Mg/24Hr Patch [Habitrol] 1 patch TRANSDERM DAILY #30 patch Atorvastatin [Lipitor] 40 mg PO HS #30 tab valACYclovir HCL [Valtrex] 1,000 mg PO BID #14 tablet Aspirin 325 mg PO DAILY #30 tab Continue Escitalopram Oxalate [Lexapro] 20 mg PO HS Cetirizine HCl [Zyrtec] 10 mg PO DAILY PRN PRN Reason: Allergy Symptoms Discharge Medication List Cetirizine HCl [Zyrtec] 10 mg PO DAILY PRN 04/20/19 [History] Escitalopram Oxalate [Lexapro] 20 mg PO HS 04/20/19 [History] Aspirin 325 mg PO DAILY #30 tab 04/23/19 [Rx] Atorvastatin [Lipitor] 40 mg PO HS #30 tab 04/23/19 [Rx] Nicotine 14Mg/24Hr Patch [Habitrol] 1 patch TRANSDERM DAILY #30 patch 04/23/19 [Rx] predniSONE [Deltasone] 60 mg PO DAILY #21 tab 04/23/19 [Rx] valACYclovir HCL [Valtrex] 1,000 mg PO BID #14 tablet 04/23/19 [Rx] Follow up Appointment(s)/Referral(s): Marcelino Salgado DO [Primary Care Provider] - 1 Week (Office is closed. Please call to schedule appointment) Shin Archer DO [STAFF PHYSICIAN] - 1 Week (Office is closed. Please call to schedule appointment) Elvin Salamanca MD [STAFF PHYSICIAN] - 04/30/19 3:00 pm (Sunday) Patient Instructions/Handouts: Transient Ischemic Attack (DC), Vásquez Palsy (DC) Discharge Disposition: HOME SELF-CARE
== END 2019-04-23 13:37 | disposition home or self-care (01) | DRG 74 ==
LOC: EC 15:28 → 3SCARD 17:07
PROVIDERS: ADMIT Internal Medicine; ATTEND Internal Medicine
PROC: B24BZZ4 Ultrasonography of Heart with Aorta, Transesophageal (ICD-10-PCS; principal; 2019-04-22 10:30)
DX: G51.0 Bell's palsy (principal); F33.9 Major depressive disorder, recurrent, unspecified; Q21.1 Atrial septal defect; J30.2 Other seasonal allergic rhinitis; F41.9 Anxiety disorder, unspecified; F17.200 Nicotine dependence, unspecified, uncomplicated; Z90.49 Acquired absence of other specified parts of digestive tract; Z79.890 Hormone replacement therapy; Z79.82 Long term (current) use of aspirin; Z79.899 Other long term (current) drug therapy; Z86.73 Personal history of transient ischemic attack (TIA), and cerebral infarction without residual deficits; Z87.440 Personal history of urinary (tract) infections; Z80.6 Family history of leukemia; E78.5 Hyperlipidemia, unspecified; Z97.5 Presence of (intrauterine) contraceptive device; F17.210 Nicotine dependence, cigarettes, uncomplicated; Z71.6 Tobacco abuse counseling; D35.4 Benign neoplasm of pineal gland
CPT/HCPCS: 36415; 70450; 70496; 70498; 70553; 71045; 72156; 72157; 80053; 80061; 82306; 83036; 84484; 85025; 85610; 85730; 93306; 93312; 93320; 93325; 96360; 99291

== ENCOUNTER 2019-05-23 08:50 | Day surgery (SDC) | payer OTHER ==
[2019-05-21 16:07] VITALS: BMI 33.1
[~2019-05-23 08:50] MED LIST: ALPRAZolam 0.25 MG TAB PO PRN; ALPRAZolam 0.5 MG TAB PO PRN; ASPIRIN 325 MG TAB PO STA
[2019-05-23] MEDS ORDERED: SODIUM CHLORIDE 0.9% 1,000 ML IV ONE (09:45)
[2019-05-23] MEDS ORDERED: ASPIRIN 81 MG ONE (10:12)
[2019-05-23] MEDS ORDERED: MIDAZOLAM 2 MG/2 ML VIAL IV ONE (12:00)
[2019-05-23] MEDS ORDERED: LIDOCAINE 1% INJ 10MG/ML (20 ML MDV) SQ ONE (12:05)
[2019-05-23] MEDS ORDERED: fentaNYL (PF) 50 MCG/ML 2 ML AMP IV ONE (12:10)
[2019-05-23] MEDS ORDERED: HEPARIN SODIUM 1,000 UN/ML (10ML VL) IV ONE (12:13)
[2019-05-23] MEDS ORDERED: IOPAMIDOL-370 50ML BTL INJ ONE (12:28)
[2019-05-23] MEDS ORDERED: CLOPIDOGREL 75 MG TAB PO ONE (12:30)
--- NOTE | 2019-05-23 12:44 | P.PCN ---
Date of Procedure: 05/23/19 Operative Findings: PERCUTANEOUS CLOSURE OF PFO PERFORMING PHYSICIAN: Josef Samuel MD. PROCEDURE PERFORMED: 1. Intracardiac echocardiogram imaging. 2. Successful percutaneous closure of patent foramen ovale using 35 mm Amplatzer PFO occluder with an excellent results and without any residual shunt. 3. Right atrial angiogram. INDICATION: This is a 38-year-old female patient who sees Dr. Salamanca as an outpatient who was diagnosed recently with TIA and underwent a SAUL which revealed patent foramen ovale with evidence of lbcrl-gn-gapj shunt. Because of that, she was scheduled to undergo a PFO closure. APPROACH: Right common femoral vein. COMPLICATION: None. LEVEL OF SEDATION: Moderate with sedation length of 20 minutes. PROCEDURE DESCRIPTION: After obtaining informed consent, the patient was brought to the cardiac dental laboratory manager. The right common femoral vein was cannulated x2 using micropuncture technique under ultrasound guidance, the micropuncture wire passed easily, then I placed two 8- Singaporean sheath in the right groin. At that point, anticoagulation was initiated using heparin and the patient was given a bolus of 6000 units of heparin IV with continuous ACT monitoring throughout the procedure. After that, the intracardiac echocardiogram probe was advanced through one of the venous sheath all the way to the right atrium where we did interrogate the in teratrial septum and identified the patent foramen ovale which was measured about 35 mm. Subsequently, I did cross the patent foramen ovale using 0.035 J-wire with the backup support of multipurpose catheter. The wire was advanced all the way to the left upper pulmonary vein and subsequently the catheter was advanced over the wire to the left upper pulmonary vein. The 0.035 J-wire was pulled out and then I advanced a randy wire. Subsequently, the multipurpose catheter was withdrawn out and the wire was left in the left upper pulmonary vein. After that, I did prep the Amplatzer PFO occluder under saline. The device was loaded into the loader engineer, which was attached to the sheath. Subsequently, I did exchange my 8-Singaporean sheath into the Shuttle sheath over a 0.035 randy wire. The sheath was advanced all the way under fluoroscopy guidance to the left atrium. Subsequently, the dilator of the sheath was withdrawn out along with the wire. After that, I did load the Amplatzer PFO occluder under continuous saline flush to the sheath. The device was advanced all the way through the sheath were I did where I did deploy initially the left atrial occluder and then I pulled back the sheath and the left atrial occluder all the way to the interatrial septum and then I deployed the right atrial occluder after that. Before I released the device, I did interrogate the septum using ice images on multiple views. After I realized that the device was stable enough and in good position the device was released. Interrogation using ice was also performed after the device was released. By the end I did right atrial angiogram. The procedure was completed without any complication. POSTPROCEDURE MANAGEMENT: 1. Dual anti-platelet therapy for 1 month. 2. Aspirin for 6 months. 3. An echo in 24 hours, in 1 week, in 4 weeks, as well as in 6 months. 5. Follow up with Dr. Salamanca
[2019-05-23] MEDS ORDERED: LORATADINE 10 MG TAB PO PRN (12:45)
[2019-05-23] MEDS ORDERED: SODIUM CHLORIDE 0.9% 1,000 ML IV SCH (13:00)
--- NOTE | 2019-05-23 13:20 | LTR ---
May 23, 2019 Re: Anahy Mcdanielvin Dear Dr. Salgado: Ms. Anahy Kown underwent today successful percutaneous closure of patent foramen ovale with good results and without any complication. Thank you for allowing us to participate in her care and please do not hesitate to call if you have any question or concern. Sincerely, Josef Samuel MD MMISAURA / JUAN FRANCISCON: [phone] /
[2019-05-23] MEDS ORDERED: HYDROmorphone 0.5 MG/0.5 ML SYRINGE IVP STA (14:41)
[2019-05-23] MEDS ORDERED: HYDROmorphone 1 MG/ML 1 ML SYRINGE ONE (14:42)
[2019-05-23 20:12] VITALS: RESP 18; TEMP 98
[2019-05-23] MEDS ORDERED: ESCITALOPRAM 20 MG TAB PO SCH (21:00)
[2019-05-23] MEDS ORDERED: ATORVASTATIN 40 MG TAB PO SCH (21:00)
[2019-05-24] MEDS: SODIUM CHLORIDE 0.9% 1,000 ML IV SCH (02:53)
[2019-05-24 04:12] VITALS: PULSE 72
--- NOTE | 2019-05-24 06:58 | XR ---
EXAMINATION TYPE: XR chest 2V DATE OF EXAM: 05/24/2019 COMPARISON: Prior chest x-ray April 20, 2019. HISTORY: Shortness of breath. TECHNIQUE: Frontal and lateral views of the chest are obtained. FINDINGS: Some eventration of the right hemidiaphragm is present. There is chronic parenchymal bonilla e without suspicious focal air space opacity, pleural effusion, or pneumothorax seen. The cardiac si lhouette size is within normal limits. Lateral view shows septal closure device . Cholecystectomy cl ips are present. The osseous structures are intact. IMPRESSION: No acute cardiopulmonary process.
[2019-05-24 07:00] VITALS: BP 98/65
--- NOTE | 2019-05-24 08:59 | P.DS ---
Providers Date of admission: May 222019 Attending physician: Josef Samuel Primary care physician: Marcelino [facility] Course: This is a very pleasant 38-year-old female patient who sees Dr. Salamanca in the office on regular basis who was diagnosed recently with TIA/CVA. Transesophageal echocardiogram was performed by Dr. Salamanca and revealed evidence off patent avilez ovale was bidirectional shunt and also fenestrated interatrial septum. Because of that, the patient was admitted to the hospital yesterday and underwent successful percutaneous closure of patent foramen ovale using 35 mm Amplatzer PFO occluder with an excellent results and without any residual shunt. The procedure was performed from the right groin. She was seen this morning. She is asymptomatic from a cardiovascular standpoint overview. The right groin is soft and nontender and without any bruises. The chest x-ray was reviewed and seems to be unremarkable. An echocardiogram was performed which I reviewed as well and showed stable intra-atrial septum device without any evidence of pericardial effusion. The patient is going to be discharged today on dual antiplatelet therapy and she will follow-up with Dr. Salamanca in the office. Plan - Discharge Summary Discharge Rx Participant: No New Discharge Prescriptions: No Action Escitalopram Oxalate [Lexapro] 20 mg PO HS Cetirizine HCl [Zyrtec] 10 mg PO DAILY PRN PRN Reason: Allergy Symptoms Atorvastatin [Lipitor] 40 mg PO HS #30 tab Nicotine 21Mg/24Hr Patch [Habitrol] 1 each TRANSDERM DAILY Clopidogrel Bisulfate [Plavix] 75 mg PO DAILY Aspirin [Children's Aspirin] 81 mg PO DAILY Albuterol Inhaler [Ventolin Hfa Inhaler] 1 - 2 puff INHALATION DIRECTED PRN PRN Reason: sob Cannabidiol (Cbd) Extract [Epidiolex] 0 mg PO DIRECTED Discharge Medication List Cetirizine HCl [Zyrtec] 10 mg PO DAILY PRN 04/20/19 [History] Escitalopram Oxalate [Lexapro] 20 mg PO HS 04/20/19 [History] Atorvastatin [Lipitor] 40 mg PO HS #30 tab 04/23/19 [Rx] Albuterol Inhaler [Ventolin Hfa Inhaler] 1 - 2 puff INHALATION DIRECTED PRN 05/21/19 [History] Aspirin [Children's Aspirin] 81 mg PO DAILY 05/21/19 [History] Cannabidiol (Cbd) Extract [Epidiolex] 0 mg PO DIRECTED 05/21/19 [History] Clopidogrel Bisulfate [Plavix] 75 mg PO DAILY 05/21/19 [History] Nicotine 21Mg/24Hr Patch [Habitrol] 1 each TRANSDERM DAILY 05/21/19 [History] Follow up Appointment(s)/Referral(s): Josef Samuel MD [STAFF PHYSICIAN] - (Please keep these follow up appointments: 1. June 02, 2019 at 4:00 PM 2. June 23, 2019 at 4:00 PM 3. November 25, 2019 at 2:00 PM 4. May 24, 2020 at 2:30 PM) Elvin Salamanca MD [STAFF PHYSICIAN] - 1 Week Activity/Diet/Wound Care/Special Instructions: PFO closure precautions: 1. Support your puncture site by applying firm, steady pressure whenever you cough, laugh, sneeze or bear down to have a bowel movement (2-day restriction). 2. Watch for any excessive bruising, active bleeding, a firm knot forming under your skin, extreme tenderness and signs of infection (redness, swelling, fever). 3. Shower daily, do not soak puncture in a tub bath, jacuzzi, pool, guzman etc. for 1 week. This is to prevent risk of infection. 4. Drink plenty of fluids the day of and day after your procedure to flush contrast dye out of your kidneys. 5. Take all medications as directed. Never stop any new medication without your physicians OK. 6. No driving for 2 days after procedure. 7. 10- pound weight lifting restriction for 1 week. 8. Low sodium/low fat diet. 9. Activity limited until follow up appointment with your safety and health consultant. In case of any problems, please call [facility] @ [phone].
[2019-05-24] MEDS ORDERED: ASPIRIN 81 MG PO SCH (09:00)
[2019-05-24] MEDS ORDERED: ASPIRIN 325 MG TAB PO SCH (09:00)
[2019-05-24] MEDS ORDERED: CLOPIDOGREL 75 MG TAB PO SCH ×2 (09:00)
[2019-05-24] MEDS ORDERED: NICOTINE 21MG/24HR PATCH TRANSDERM SCH (09:00)
--- NOTE | 2019-05-24 16:20 | ECHOF ---
Referral Reason:Post ASD/PFO Insertion MEASUREMENTS -------- HEIGHT: 160.0 cm WEIGHT: 87.1 kg BP: RVIDd: 2.9 cm (< 3.3) IVSd: 0.9 cm (0.6 - 1.1) LVIDd: 4.6 cm (3.9 - 5.3) LVPWd: 0.8 cm (0.6 - 1.1) IVSs: 1.3 cm LVIDs: 3.1 cm LVPWs: 1.3 cm LA Diam: 3.2 cm (2.7 - 3.8) Ao Diam: 3.0 cm (2.0 - 3.7) AV Cusp: 2.4 cm (1.5 - 2.6) MV EXCURSION: 15.792 mm (> 18.000) MV EF SLOPE: 142 mm/s (70 - 150) EPSS: 0.7 cm FINDINGS -------- Sinus rhythm. This was a technically adequate study. The left ventricular size is normal. Left ventricular wall thickness is normal. Overall left vent ricular systolic function is normal with, an EF between 55 - 60 %. The right ventricle is normal in size. The left atrial size is normal. The right atrial size is normal. There is an interatrial closure device in place without evidence of shunt. The aortic valve is trileaflet, and appears structurally normal. No aortic stenosis or regurgitation. The mitral valve is normal. No mitral regurgitation. The tricuspid valve appears structurally normal. There is no pulmonic regurgitation present. The aortic root size is normal. Normal inferior vena cava with normal inspiratory collapse consistent with estimated right atrial pre ssure of 5 mmHg. There is no pericardial effusion. CONCLUSIONS -------- 1. Sinus rhythm. 2. This was a technically adequate study. 3. The left ventricular size is normal. 4. Left ventricular wall thickness is normal. 5. Overall left ventricular systolic function is normal with, an EF between 55 - 60 %. 6. The left atrial size is normal. 7. There is an interatrial closure device in place without evidence of shunt. 8. The aortic valve is trileaflet, and appears structurally normal. No aortic stenosis or regurgitati on. 9. The mitral valve is normal. 10. The tricuspid valve appears structurally normal. 11. There is no pulmonic regurgitation present. 12. Normal inferior vena cava with normal inspiratory collapse consistent with estimated right atrial pressure of 5 mmHg. 13. There is no pericardial effusion. BRAKE LINING FINISHER ASBESTOS: Naa Major RDCS
== END 2019-05-24 10:10 | disposition home or self-care (01) ==
LOC: CATHCVL 08:50 → 3SCARD 14:13 → CATHCVL 05-24 10:10
PROVIDERS: ATTEND Internal Medicine Interventional Cardiology
DX: Q21.1 Atrial septal defect (principal); Z86.73 Personal history of transient ischemic attack (TIA), and cerebral infarction without residual deficits; E78.5 Hyperlipidemia, unspecified; Z82.49 Family history of ischemic heart disease and other diseases of the circulatory system; Z72.0 Tobacco use; Z79.02 Long term (current) use of antithrombotics/antiplatelets; Z79.82 Long term (current) use of aspirin; Z79.899 Other long term (current) drug therapy
CPT/HCPCS: 93306; 93581; 93662; 85347; 86900; 86901; 86850; 81025; 71046; C1759; C1769 ×4; C1894; C1817; J2250; J0690; J2001; J1644; J1170; Q9967; 86920

== ENCOUNTER 2019-06-13 15:59 | Emergency (ER) | payer OTHER ==
[2019-06-13 16:04] VITALS: TEMP 98.7
[2019-06-13] MEDS ORDERED: SODIUM CHLORIDE 0.9% 1,000 ML IV STA (16:39)
[2019-06-13] MEDS ORDERED: guaiFENesin-Coden 100-10MG/5ML 10 ML CUP PO STA (16:58)
[2019-06-13 17:05] LABS: Basophils % (A) 0 %; Eosinophils % (A) 0 %; HCT 41.1 % (34.0-46.0); HGB 13.8 gm/dL (11.4-16.0); Lymphocytes % (A) 19 %; MCH 30.5 pg (25.0-35.0); MCHC 33.5 g/dL (31.0-37.0); Mean Platelet Volume 6.9; Monocytes # (A) 0.7 k/uL (0-1.0); Monocytes % (A) 5 %; Neutrophils # (A) 11.9 k/uL (1.3-7.7); Neutrophils % (A) 75 %; Platelet Count 288 k/uL (150-450); RBC 4.52 m/uL (3.80-5.40); RDW 12.1 % (11.5-15.5); WBC 15.9 k/uL (3.8-10.6)
--- NOTE | 2019-06-13 17:13 | XR ---
EXAMINATION TYPE: XR chest 2V DATE OF EXAM: 06/13/2019 COMPARISON: Chest x-ray May 24, 2019. HISTORY: Increased difficulty in breathing. TECHNIQUE: Frontal and lateral views of the chest are obtained. FINDINGS: There is no suspicious peripheral focal air space opacity, pleural effusion, or pneumothor ax seen. Eventration right hemidiaphragm redemonstrated. The cardiac silhouette size remains within n ormal limits. The osseous structures are intact. Cholecystectomy clips again seen. IMPRESSION: No suspicious acute pulmonary process. No significant change from prior.
[2019-06-13 17:14] LABS: ALT 15 U/L (4-34); AST 18 U/L (14-36); African American GFR (CKD) >90 (>60 ml/min/1.73 sqM); Albumin 4.4 g/dL (3.5-5.0); Alkaline Phosphatase 107 U/L (38-126); Anion Gap 9 mmol/L; Blood Urea Nitrogen 12 mg/dL (7-17); Calcium 9.7 mg/dL (8.4-10.2); Carbon Dioxide 22 mmol/L (22-30); Chloride 108 mmol/L (98-107); Glucose 140 mg/dL (74-99); Non-African American GFR(CKD) >90 (>60 ml/min/1.73 sqM); Potassium 3.7 mmol/L (3.5-5.1); Sodium 139 mmol/L (137-145); Total Bilirubin 0.2 mg/dL (0.2-1.3); Total Protein 7.6 g/dL (6.3-8.2)
[2019-06-13 17:51] LABS: D-Dimer 0.54 mg/L FEU (<0.60); INR 0.9 (<1.2); Partial Thromboplastin Time 24.6 sec (22.0-30.0); Prothrombin Time 9.9 sec (9.0-12.0)
--- NOTE | 2019-06-13 18:25 | ED ---
SOB HPI - General Chief Complaint: Shortness of Breath Stated Complaint: SOB Time Seen by Provider: 06/13/19 16:07 Source: patient Mode of arrival: ambulatory Limitations: no limitations - History of Present Illness Initial Comments: 38-year-old female patient presents to the emergency department today for evaluation of shortness of breath and palpitations. Patient states that she has had upper respiratory infection for the last week. States she did see an urgent care doctor who tested her for COVID-19 which is pending but started her on Augmentin, steroids, and Tessalon Perles. She tested negative for influenza. Patient has been experiencing a fluttering in her chest throughout the day today. Patient states it was lasting for quite some time. States this is causing her to feel short of breath. States that her cough is worsening. Denies any wheezing or sputum production. States that she did have a 99.9F temperature today. Patient did undergo a closure of her PFO on 05/23/19. They found the PFO after she experienced a TIA and underwent extensive workup for that. Patient denies any recent rash, abdominal pain, nausea, vomiting, marquise rrhea, constipation, back pain, numbness, tingling, dizziness, weakness, hematuria, dysuria, urinary urgency, urinary frequency, headache, visual changes, or any other complaints. - Related Data Home Medications Medication Instructions Recorded Confirmed Cetirizine HCl [Zyrtec] 10 mg PO DAILY PRN 04/20/19 05/23/19 Escitalopram Oxalate [Lexapro] 20 mg PO HS 04/20/19 05/21/19 Albuterol Inhaler [Ventolin Hfa 1 - 2 puff INHALATION DIRECTED 05/21/19 05/23/19 Inhaler] PRN Aspirin [Children's Aspirin] 81 mg PO DAILY 05/21/19 05/23/19 Cannabidiol (Cbd) Extract 0 mg PO DIRECTED 05/21/19 05/21/19 [Epidiolex] Clopidogrel Bisulfate [Plavix] 75 mg PO DAILY 05/21/19 05/23/19 Nicotine 21Mg/24Hr Patch [Habitrol] 1 each TRANSDERM DAILY 05/21/19 05/23/19 Previous Rx's Medication Instructions Recorded Atorvastatin [Lipitor] 40 mg PO HS #30 tab 04/23/19 Cyclobenzaprine [Flexeril] 10 mg PO TID #15 tab 06/13/19 guaiFENesin-Coden 100-10MG/5ML 10 ml PO Q4H PRN 3 Days #180 ml 06/13/19 [Robitussin AC] Allergies Allergy/AdvReac Type Severity Reaction Status Date / Time nitrofurantoin Allergy Anaphylaxis Verified 06/13/19 16:04 [From Macrobid] Review of Systems ROS Statement: Those systems with pertinent positive or pertinent negative responses have been documented in the HPI. ROS Other: All systems not noted in ROS Statement are negative. Past Medical History Past Medical History: CVA/TIA Additional Past Medical History / Comment(s): TIA February 2012. Hx of UTI History of Any Multi-Drug Resistant Organisms: None Reported Past Surgical History: Cholecystectomy Additional Past Surgical History / Comment(s): Colonoscopy, colposcopy, PFO closure 05/23/2019 Past Psychological History: No Psychological Hx Reported Smoking Status: Current every day smoker Past Alcohol Use History: Occasional Past Drug Use History: None Reported - Past Family History Father History Unknown: Yes Mother Additional Family Medical History / Comment(s): acute lukemia, decreased from head bleed Sister(s) Additional Family Medical History / Comment(s): Patient has one sister and 2 brothers with no major medical problems. Patient has 2 sons and 1 daughter with no major medical problems. General Exam Limitations: no limitations General appearance: alert, in no apparent distress, other (This is a well- developed, well-nourished adult female patient in mild respiratory distress. Vi tashi signs upon presentation are temperature 98.7F, pulse 83, respirations 20, blood pressure 125/84, pulse ox 98% on room air.) Eye exam: Present: normal appearance, PERRL, EOMI. Absent: scleral icterus, conjunctival injection, periorbital swelling ENT exam: Present: normal exam, normal oropharynx, mucous membranes moist Respiratory exam: Present: normal lung sounds bilaterally, other (Tachypnea. Harsh dry cough noted during evaluation). Absent: respiratory distress, wheezes, rales, rhonchi, stridor Cardiovascular Exam: Present: regular rate, normal rhythm, normal heart sounds. Absent: systolic murmur, diastolic murmur, rubs, gallop, clicks GI/Abdominal exam: Present: soft, normal bowel sounds. Absent: distended, tenderness, guarding, rebound, rigid Neurological exam: Present: alert, oriented X3, CN II-XII intact Psychiatric exam: Present: normal affect, normal mood Skin exam: Present: warm, dry, intact, normal color. Absent: rash Course Vital Signs 06/13/19 06/13/19 06/13/19 16:01 16:53 18:30 Temperature 98.7 F Pulse Rate 83 74 55 L Respiratory 20 18 20 Rate Blood Pressure 125/84 123/83 102/54 O2 Sat by Pulse 98 99 100 Oximetry 06/13/19 20:00 Temperature Pulse Rate 78 Respiratory 18 Rate Blood Pressure 109/79 O2 Sat by Pulse 100 Oximetry - Reevaluation(s) Reevaluation #1: 06/13/19 18:36 Patient developed significant chest pain. She is reporting sharp stabbing pains all across her chest. Denies radiation through to her back. We will repeat EKG, we are awaiting CT scanning of the chest to rule out PE and other etiologies. Medical Decision Making - Medical Decision Making 38 year-old female patient presents to the emergency department today for evaluation of cough, shortness of breath, and palpitations. Physical examination reveals clear equal lung sounds. Labs reviewed. D-dimer borderline elevated at 0.56. Chest x-ray showed no acute cardiopulmonary process. We did perform CT angiography of the chest to rule out PE as patient did have a recent surgical procedure, this was negative. Patient does have symptoms consistent with COVID-19. She is currently taking Augmentin, Steroids, and Tessalon perles. I will give scripts for robitussin AC and flexeril for chest wall muscle spasm. She is educated regarding appropriate quarantine procedures. She is instructed to follow-up with her primary care physician for recheck in 1-2 days. Return parameters were discussed in detail. She verbalizes understanding and agrees with this plan. - Lab Data Result diagrams: 06/13/19 16:50 06/13/19 16:50 Lab Results 06/13/19 06/13/19 06/13/19 Range/Units 16:50 16:50 16:50 WBC 15.9 H (3.8-10.6) k/uL RBC 4.52 (3.80-5.40) m/uL Hgb 13.8 (11.4-16.0) gm/dL Hct 41.1 (34.0-46.0) % MCV 91.0 (80.0-100.0) fL MCH 30.5 (25.0-35.0) pg MCHC 33.5 (31.0-37.0) g/dL RDW 12.1 (11.5-15.5) % Plt Count 288 (150-450) k/uL Neutrophils % 75 % Lymphocytes % 19 % Monocytes % 5 % Eosinophils % 0 % Basophils % 0 % Neutrophils # 11.9 H (1.3-7.7) k/uL Lymphocytes # 3.0 (1.0-4.8) k/uL Monocytes # 0.7 (0-1.0) k/uL Eosinophils # 0.0 (0-0.7) k/uL Basophils # 0.0 (0-0.2) k/uL PT 9.9 (9.0-12.0) sec INR 0.9 (<1.2) APTT 24.6 (22.0-30.0) sec D-Dimer 0.54 (<0.60) mg/L FEU Sodium (137-145) mmol/L Potassium (3.5-5.1) mmol/L Chloride (98-107) mmol/L Carbon Dioxide (22-30) mmol/L Anion Gap mmol/L BUN (7-17) mg/dL Creatinine (0.52-1.04) mg/dL Est GFR (CKD-EPI)AfAm (>60 ml/min/1.73 sqM) Est GFR (CKD-EPI)NonAf (>60 ml/min/1.73 sqM) Glucose (74-99) mg/dL Plasma Lactic Acid Jean (0.7-2.0) mmol/L Calcium (8.4-10.2) mg/dL Total Bilirubin (0.2-1.3) mg/dL AST (14-36) U/L ALT (4-34) U/L Alkaline Phosphatase (38-126) U/L Troponin I (0.000-0.034) ng/mL Total Protein (6.3-8.2) g/dL Albumin (3.5-5.0) g/dL Urine HCG, Qual Not Detected (Not Detectd) 03/27/20 03/27/20 03/27/20 Range/Units 16:50 16:50 17:16 WBC (3.8-10.6) k/uL RBC (3.80-5.40) m/uL Hgb (11.4-16.0) gm/dL Hct (34.0-46.0) % MCV (80.0-100.0) fL MCH (25.0-35.0) pg MCHC (31.0-37.0) g/dL RDW (11.5-15.5) % Plt Count (150-450) k/uL Neutrophils % % Lymphocytes % % Monocytes % % Eosinophils % % Basophils % % Neutrophils # (1.3-7.7) k/uL Lymphocytes # (1.0-4.8) k/uL Monocytes # (0-1.0) k/uL Eosinophils # (0-0.7) k/uL Basophils # (0-0.2) k/uL PT (9.0-12.0) sec INR (<1.2) APTT (22.0-30.0) sec D-Dimer (<0.60) mg/L FEU Sodium 139 (137-145) mmol/L Potassium 3.7 (3.5-5.1) mmol/L Chloride 108 H (98-107) mmol/L Carbon Dioxide 22 (22-30) mmol/L Anion Gap 9 mmol/L BUN 12 (7-17) mg/dL Creatinine 0.61 (0.52-1.04) mg/dL Est GFR (CKD-EPI)AfAm >90 (>60 ml/min/1.73 sqM) Est GFR (CKD-EPI)NonAf >90 (>60 ml/min/1.73 sqM) Glucose 140 H (74-99) mg/dL Plasma Lactic Acid Jean 1.4 (0.7-2.0) mmol/L Calcium 9.7 (8.4-10.2) mg/dL Total Bilirubin 0.2 (0.2-1.3) mg/dL AST 18 (14-36) U/L ALT 15 (4-34) U/L Alkaline Phosphatase 107 (38-126) U/L Troponin I <0.012 (0.000-0.034) ng/mL Total Protein 7.6 (6.3-8.2) g/dL Albumin 4.4 (3.5-5.0) g/dL Urine HCG, Qual (Not Detectd) - EKG Data -: EKG Interpreted by Me EKG Comments: EKG obtained at 1609 shows normal sinus rhythm with a sinus arrhythmia. Ventricular rate is 81, PA interval 136, QRS duration 82, QT 390, QTC 453. No evidence of ST elevation or depression. - Radiology Data Radiology results: report reviewed, image reviewed Two-view x-ray of the chest is obtained. Report was reviewed in its entirety. Impression by Dr. Miller shows no suspicious acute pulmonary process. No significant change from prior. CT chest angiography for PE was obtained. Report was reviewed in its entirety. Impression by Dr. Miller shows no CT evidence for acute pulmonary embolism. No suspicious acute pulmonary process. Disposition Clinical Impression: Palpitations, Suspected COVID-19 virus infection Disposition: HOME SELF-CARE Condition: Good Instructions (If sedation given, give patient instructions): Heart Palpitations (ED), Acute Bronchitis (ED) Additional Instructions: Follow-up with the legal consultant for further evaluation as soon as possible. Take medications as directed. Follow-up with your primary care physician for recheck in 1-2 days. Return to the emergency department immediately for any new, worsening, or concerning symptoms. Prescriptions: Cyclobenzaprine [Flexeril] 10 mg PO TID #15 tab guaiFENesin-Coden 100-10MG/5ML [Robitussin AC] 10 ml PO Q4H PRN 3 Days #180 ml PRN Reason: Cough Is patient prescribed a controlled substance at d/c from ED?: No Referrals: Marcelino Salgado DO [Primary Care Provider] - 1-2 days Time of Disposition: 20:16
[2019-06-13] MEDS ORDERED: MORPHINE SULFATE 4 MG/ML SYRINGE IVP STA (18:27)
[2019-06-13] MEDS ORDERED: ONDANSETRON 4 MG/2 ML VIAL IVP STA (18:29)
--- NOTE | 2019-06-13 19:09 | CT ---
EXAMINATION TYPE: CT chest angio for PE DATE OF EXAM: 06/13/2019 COMPARISON: Chest x-ray earlier today. HISTORY: SOB, elevated d-dimer CT DLP: 375.7 mGycm. Automated Exposure Control for Dose Reduction was Utilized. CONTRAST: CTA scan of the thorax is performed with IV Contrast, patient injected with 93cc mL of Isovue 370, pu lmonary embolism protocol. MIP Images are created on CT scanner and reviewed. FINDINGS: LUNGS: The lungs are grossly clear without suspicious focal consolidation or groundglass opacity. The re is no concerning parenchymal mass or nodule identified. There is no pleural effusion or pneumoth orax seen bilaterally. The tracheobronchial tree is patent. MEDIASTINUM: There is satisfactory enhancement of the pulmonary artery and its branches, there is no CT evidence for pulmonary embolism. There are no greater than 1 cm hilar or mediastinal lymph nodes. No cardiomegaly or pericardial effusion is seen. Atrial septal closure device noted. OTHER: Mild multilevel spurring in the thoracic spine. IMPRESSION: No CT evidence for acute pulmonary embolism. No suspicious acute pulmonary process.
[2019-06-13] MEDS ORDERED: DIAZEPAM 5 MG/ML 2 ML INJ IVP STA (19:27)
[2019-06-13 20:05] VITALS: BP 109/79; PULSE 78; RESP 18
== END 2019-06-13 20:40 | disposition home or self-care (01) ==
LOC: EC 15:59
DX: R00.2 Palpitations (principal); Z20.828 Contact with and (suspected) exposure to other viral communicable diseases; R79.1 Abnormal coagulation profile; M62.838 Other muscle spasm; R05 Cough; R06.02 Shortness of breath; F17.200 Nicotine dependence, unspecified, uncomplicated; Z88.1 Allergy status to other antibiotic agents; Z79.02 Long term (current) use of antithrombotics/antiplatelets; Z79.82 Long term (current) use of aspirin; Z86.73 Personal history of transient ischemic attack (TIA), and cerebral infarction without residual deficits; Z87.09 Personal history of other diseases of the respiratory system; Z87.74 Personal history of (corrected) congenital malformations of heart and circulatory system
CPT/HCPCS: 36415; 93005; 85379; 80053; 83605; 84484; 85025; 85610; 85730; 81025; 71046; 71275; 99285; 96374; 96375 ×2; 96361 ×4; J2270; J3360; J2405; Q9967

== ENCOUNTER 2019-09-23 09:55 | Observation (INO) | payer OTHER ==
[2019-09-23] MEDS ORDERED: SODIUM CHLORIDE 0.9% 1,000 ML IV STA (10:20)
--- NOTE | 2019-09-23 10:24 | ED ---
General Adult HPI - General Chief complaint: Neuro Symptoms/Deficit Stated complaint: left sided weakness Source: patient Mode of arrival: wheelchair Limitations: no limitations - History of Present Illness Initial comments: Dictation was produced using [employer] dictation software. please excuse any grammatical, word or spelling errors. This patient was cared for during a federal and state declared state of emergency secondary to Covid 19 Chief Complaint: 39-year-old male presents with strokelike symptoms. History of Present Illness: 39-year-old feels presents with strokelike symptoms. She states she was at work when her symptoms started. She describes her symptoms at left-sided facial weakness, paresthesias to the left face, left upper extremity and left lower leg. Patient has a history of CVA. She has been diagnosed with PFO that was repaired in May of this year. Patient denies any upper facial weakness on the left side. Patient has a history of multiple TIAs. She does take Plavix. She does not have any other medical history. The ROS documented in this emergency department record has been reviewed and confirmed by me. Those systems with pertinent positive or negative responses have been documented in the HPI. All other systems are other negative and/or noncontributory. PHYSICAL EXAM: General Impression: Alert and oriented x3, not in acute distress HEENT: Normocephalic atraumatic, extra-ocular movements intact, pupils equal and reactive to light bilaterally, mucous membranes moist. Cardiovascular: Heart regular rate and rhythm Chest: Able to complete full sentences, no retractions, no tachypnea Abdomen: abdomen soft, non-tender, non-distended, no organomegaly Musculoskeletal: Pulses present and equal in all extremities, no peripheral edema Motor: no focal deficits noted Neurological: Left lower facial weakness, mild slurred speech, sensory abnormalities to the left face left upper extremity and left leg. She has mild drift of the left lower extremity and left upper extremity. Not aphasic Skin: Intact with no visualized rashes Psych: Normal affect and mood ED course: 39-year-old female presents with strokelike symptoms starting at 9:20 AM. Patient given initial NIH score of 56. Patient was in the emergency department for approximately 25 minutes before I was notified of patient's clinical presentation by the nurse. Code stroke was paged. Patient takes Plavix. Patient is was discussed with stroke neurologist Dr. Isaacs at approximately 10:38 AM. He agrees that patient is a candidate for TPA if she has negative films. Dr. Manzanares evaluated patient's films. He did evaluate the patient via the stroke robot recommended no TPA administration at this time. Patient took her aspirin and Plavix earlier today. Did not recommend giving her any more. Patient reports improvement of her symptoms since being in the emergency department. Stroke neurologist gave patient a NIH score of 2-1/2. We will withhold any TPA at this time due to improvement of symptoms. Return evaluation obtained. CBC, coag panel, lipid panel is unremarkable. Computed tomography scan of the brain is unremarkable there is note of benign cerebellar tonsillar ectopia of 3.5 mm. Pending radiologist read for the CT ang ioma. Discussed patient case with Dr. charis mcgee except patient's care. Dr. Olivares asked that I call MRI to see if they could do a stat MRI brain without contrast. MRI reports that they can get her an MRI within the hour. She does however have PFO closure allegedly with some metal on the device. Patient will be admitted. Pending discussion with neurology. Admitted to telemetry. EKG interpretation: Ventricular rate 83, normal sinus rhythm, FL interval 132, QRS 74, QTC 467. No FL prolongation, no QTC prolongation, no ST or T-wave changes noted. Overall, this EKG is unremarkable - Related Data Home Medications Medication Instructions Recorded Confirmed RX: Cetirizine HCl [Zyrtec] 10 mg PO DAILY PRN 04/20/19 05/23/19 RX: Escitalopram Oxalate [Lexapro] 20 mg PO HS 04/20/19 05/21/19 Albuterol Inhaler (Mhu) [Ventolin 1 - 2 puff INHALATION DIRECTED 05/21/19 05/23/19 Hfa Inhaler] PRN Aspirin [Children's Aspirin] 81 mg PO DAILY 05/21/19 05/23/19 Cannabidiol (Cbd) Extract 0 mg PO DIRECTED 05/21/19 05/21/19 [Epidiolex] Clopidogrel Bisulfate [Plavix] 75 mg PO DAILY 05/21/19 05/23/19 Nicotine 21Mg/24Hr Patch [Habitrol] 1 each TRANSDERM DAILY 05/21/19 05/23/19 Previous Rx's Medication Instructions Recorded RX: Atorvastatin [Lipitor] 40 mg PO HS #30 tab 04/23/19 Cyclobenzaprine [Flexeril] 10 mg PO TID #15 tab 06/13/19 guaiFENesin-Coden 100-10MG/5ML 10 ml PO Q4H PRN 3 Days #180 ml 06/13/19 [Robitussin AC] Allergies Allergy/AdvReac Type Severity Reaction Status Date / Time nitrofurantoin Allergy Anaphylaxis Verified 09/23/19 11:11 [From Macrobid] Review of Systems ROS Statement: Those systems with pertinent positive or pertinent negative responses have been documented in the HPI. ROS Other: All systems not noted in ROS Statement are negative. Past Medical History Past Medical History: CVA/TIA Additional Past Medical History / Comment(s): TIA February 2012. Hx of UTI History of Any Multi-Drug Resistant Organisms: None Reported Past Surgical History: Cholecystectomy Additional Past Surgical History / Comment(s): Colonoscopy, colposcopy, PFO closure 05/23/2019 Past Psychological History: No Psychological Hx Reported Smoking Status: Current every day smoker Past Alcohol Use History: Occasional Past Drug Use History: None Reported - Past Family History Father History Unknown: Yes Mother Additional Family Medical History / Comment(s): acute lukemia, decreased from head bleed Sister(s) Additional Family Medical History / Comment(s): Patient has one sister and 2 brothers with no major medical problems. Patient has 2 sons and 1 daughter with no major medical problems. General Exam Limitations: no limitations Course Vital Signs 09/23/19 09/23/19 09/23/19 09:56 10:25 10:35 Temperature 98.1 F 98.1 F 98.1 F Pulse Rate 82 82 82 Respiratory 18 18 18 Rate Blood Pressure 110/77 110/77 110/77 O2 Sat by Pulse 99 99 99 Oximetry 09/23/19 10:45 Temperature 98.1 F Pulse Rate 82 Respiratory 18 Rate Blood Pressure 110/77 O2 Sat by Pulse 99 Oximetry Medical Decision Making - Lab Data Result diagrams: 09/23/19 10:36 09/23/19 10:36 Lab Results 09/23/19 09/23/19 09/23/19 Range/Units 10:36 10:36 10:36 WBC 10.0 (3.8-10.6) k/uL RBC 4.58 (3.80-5.40) m/uL Hgb 13.9 (11.4-16.0) gm/dL Hct 43.0 (34.0-46.0) % MCV 93.8 (80.0-100.0) fL MCH 30.4 (25.0-35.0) pg MCHC 32.4 (31.0-37.0) g/dL RDW 12.5 (11.5-15.5) % Plt Count 264 (150-450) k/uL Neutrophils % 63 % Lymphocytes % 26 % Monocytes % 6 % Eosinophils % 3 % Basophils % 0 % Neutrophils # 6.3 (1.3-7.7) k/uL Lymphocytes # 2.6 (1.0-4.8) k/uL Monocytes # 0.6 (0-1.0) k/uL Eosinophils # 0.3 (0-0.7) k/uL Basophils # 0.0 (0-0.2) k/uL PT 9.8 (9.0-12.0) sec INR 0.9 (<1.2) APTT 24.7 (22.0-30.0) sec Sodium 137 (137-145) mmol/L Potassium 4.4 (3.5-5.1) mmol/L Chloride 109 H (98-107) mmol/L Carbon Dioxide 23 (22-30) mmol/L Anion Gap 5 mmol/L BUN 6 L (7-17) mg/dL Creatinine 0.70 (0.52-1.04) mg/dL Est GFR (CKD-EPI)AfAm >90 (>60 ml/min/1.73 sqM) Est GFR (CKD-EPI)NonAf >90 (>60 ml/min/1.73 sqM) Glucose 91 (74-99) mg/dL Calcium 9.3 (8.4-10.2) mg/dL Total Bilirubin 0.4 (0.2-1.3) mg/dL AST 21 (14-36) U/L ALT 17 (4-34) U/L Alkaline Phosphatase 110 (38-126) U/L Total Protein 6.8 (6.3-8.2) g/dL Albumin 4.0 (3.5-5.0) g/dL Disposition Clinical Impression: CVA (cerebral vascular accident) Disposition: ADMITTED IP TO THIS HOSP Condition: Fair Referrals: Marcelino Salgado DO [Primary Care Provider] - 1-2 days Decision Time: 11:15
--- NOTE | 2019-09-23 10:36 | CT ---
EXAMINATION TYPE: CT brain wo con for TPA DATE OF EXAM: 09/23/2019 COMPARISON: 04/20/2019 HISTORY: 39-year-old female with left sided weakness TECHNIQUE: Examination was done in axial plane without intravenous contrast. Coronal and sagittal r econstructions performed. CT DLP: Not yet available Automated exposure control for dose reduction was used. FINDINGS: There is no evidence of acute intracranial hemorrhage, acute ischemic changes, mass, mass-effect, or extra-axial fluid collection. There is no effacement of cerebral sulci or basal subarachnoid cister ns. There is no hydrocephalus. There is no midline shift. Oliva-white matter distinction is preserv ed. Redemonstrated 3.5 mm of cerebellar tonsillar ectopia, likely benign cerebellar tonsillar ectopia. Paranasal sinuses and mastoid air cells well pneumatized. Orbits and globes are intact. IMPRESSION: No acute intracranial abnormality seen. Benign cerebellar tonsillar ectopia of 3.5 mm demonstrated.
[2019-09-23 10:46] LABS: Basophils % (A) 0 %; Eosinophils # (A) 0.3 k/uL (0-0.7); Eosinophils % (A) 3 %; HGB 13.9 gm/dL (11.4-16.0); Lymphocytes # (A) 2.6 k/uL (1.0-4.8); Lymphocytes % (A) 26 %; MCH 30.4 pg (25.0-35.0); MCHC 32.4 g/dL (31.0-37.0); MCV 93.8 fL (80.0-100.0); Monocytes # (A) 0.6 k/uL (0-1.0); Monocytes % (A) 6 %; Neutrophils # (A) 6.3 k/uL (1.3-7.7); Neutrophils % (A) 63 %; Platelet Count 264 k/uL (150-450); RBC 4.58 m/uL (3.80-5.40); RDW 12.5 % (11.5-15.5)
[2019-09-23 10:54] LABS: ALT 17 U/L (4-34); AST 21 U/L (14-36); African American GFR (CKD) >90 (>60 ml/min/1.73 sqM); Alkaline Phosphatase 110 U/L (38-126); Anion Gap 5 mmol/L; Blood Urea Nitrogen 6 mg/dL (7-17); Calcium 9.3 mg/dL (8.4-10.2); Carbon Dioxide 23 mmol/L (22-30); Chloride 109 mmol/L (98-107); Glucose 91 mg/dL (74-99); INR 0.9 (<1.2); Non-African American GFR(CKD) >90 (>60 ml/min/1.73 sqM); Partial Thromboplastin Time 24.7 sec (22.0-30.0); Potassium 4.4 mmol/L (3.5-5.1); Prothrombin Time 9.8 sec (9.0-12.0); Sodium 137 mmol/L (137-145); Total Bilirubin 0.4 mg/dL (0.2-1.3); Total Protein 6.8 g/dL (6.3-8.2)
--- NOTE | 2019-09-23 11:25 | XR ---
EXAMINATION TYPE: XR chest 2V DATE OF EXAM: 09/23/2019 COMPARISON: 06/13/2019 HISTORY: 39-year-old female confusion, altered mental status, left-sided weakness TECHNIQUE: PA and lateral views FINDINGS: The cardiomediastinal silhouette, aorta, and pulmonary vasculature are within normal limits. PFO clos ure device is demonstrated. Lungs and pleural spaces are clear. Cholecystectomy clips. IMPRESSION: PFO closure device. No acute cardiopulmonary process.
--- NOTE | 2019-09-23 11:30 | CT ---
EXAMINATION TYPE: CT angio head neck DATE OF EXAM: 09/23/2019 COMPARISON: 04/20/2019 HISTORY: 39-year-old female with left sided weakness TECHNIQUE: Contiguous axial scanning of the head and neck performed with IV Contrast, patient injecte d with 65 mL of Isovue 370. Coronal/sagittal MIP reconstructions performed. 3-D reconstructions gener ated on a dedicated independent workstation. CT DLP: 1563.7 (TPA brain and CTA head and neck) mGycm Automated exposure control for dose reduction was used. FINDINGS: NECK: Conventional arch vessel branching anatomy. The vertebral arteries are codominant patent throughout their course. The right common and internal carotid arteries are widely patent. Some air within the left subclavian vein likely from peripheral line placement. HEAD: Vertebral and basilar arteries are patent. Posterior circulation is patent. The internal carotid arteries and remainder of the anterior circulation is patent. No aneurysmal changes seen. Dural venous sinuses are patent. IMPRESSION: 1. NECK: WIDELY PATENT VERTEBRAL AND CAROTID ARTERIES OF THE NECK. 2. HEAD: NO LARGE VESSEL INTRACRANIAL ARTERIAL OCCLUSION, SIGNIFICANT STENOSIS, OR ANEURYSMAL CHANGE IS SEEN
--- NOTE | 2019-09-23 12:24 | MR ---
EXAMINATION TYPE: MR brain wo con DATE OF EXAM: 09/23/2019 COMPARISON: CT brain 09/23/2019, MRI brain 04/21/2019 HISTORY: CVA left side weakness CONTRAST: Performed utilizing 0 mL intravenous Gadavist gadolinium contrast. TECHNIQUE: Multiplanar, multiecho imaging on a 3.0 Jackie magnet is performed through the brain. Stud y is performed within 24 hours of arrival to the hospital. The craniovertebral junction is normal. The pituitary is normal. Previous identified small pineal cy st is stable Diffusion-weighted imaging is performed. No abnormal hyperintensity is present to suggest an acute i ntracranial infarct or acute ischemic change. Signal within the brain appears normal. There is preservation of the huston-white matter differentiatio n. Ventricles and sulci are appropriate for the patient age. No significant interval change is evident. IMPRESSIONS: 1. No acute intracranial process.
[2019-09-23] MEDS ORDERED: ALBUTEROL NEBULIZED 2.5 MG/3 ML INHALATION PRN (13:45)
[2019-09-23] MEDS ORDERED: LORATADINE 10 MG TAB PO PRN (13:45)
--- NOTE | 2019-09-23 14:37 | P.HPIM ---
History of Present Illness H&P Date: 09/23/19 Chief Complaint: Left-sided weakness and facial numbness This is a 39-year-old female patient of Dr. Salgado with past medical history of TIA in Feb 2012 and April 2019 secondary to patent PFO status post closure by Dr. Samuel in May 2019, history of UTI, and tobacco use and dependence. Patient presented due to left facial numbness, left arm and leg weakness, left face drooping. Patient states that she went to work and her boss noticed that she had a left-sided facial droop and her speech was slurred. She went to stand up and she noticed that she was weak on the left leg and also her left arm and she had numbness of her left side of her face. Since her last admission in April of this year, patient followed up with Dr. 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 She is scheduled for repeat CAT scan in October of this year. She also has lesions on her spinal cord which are being monitored. The patient states that weakness is significantly improved but she does have some residual left-sided weakness. Speech essentially back to normal. No left-sided droop noted. Patient states that she has been taking aspirin 81 mg, Lipitor 40 mg and Plavix 75 mg daily as scheduled. Patient continues to be an active smoker. Patient came into [facility] emergency center for evaluation. Her initial vital signs within normal limits and laboratory analysis was unremarkable. CT head showed no acute intracranial hemorrhage. Benign cerebellar tonsillar ectopia of 3.[address] angiogram of the head and neck revealed neck was widely patent vertebral and carotid arteries. Head showed no large vessel intracranial arterial occlusion, significant stenosis or aneurysmal change. MRI of the brain showed no acute intracranial process. Chest x-ray revealed PFO closure device. No acute cardiopulmonary process. Patient was admitted to the cardiac stepdown unit. Consult with neurology. Review of Systems Constitutional: Denies chills, Denies fatigue, Denies fever, Denies lethargy, Denies malaise, Denies poor appetite Eyes: denies blurred vision, denies pain Ears, nose, mouth and throat: Denies vertigo, Denies headache, Denies nasal congestion, Denies nasal discharge, Denies sore throat Cardiovascular: Denies chest pain, Denies decreased exercise tolerance, Denies dyspnea on exertion, Denies edema, Denies leg edema, Denies shortness of breath, Denies syncope Respiratory: Denies cough, Denies cough with sputum, Denies dyspnea, Denies excessive sputum, Denies hemoptysis, Denies home oxygen, Denies sleep apnea, Denies snoring Gastrointestinal: Denies abdominal pain, Denies diarrhea, Denies loss of appetite, Denies nausea, Denies vomiting Genitourinary: Denies dysuria, Denies hematuria, Denies urgency, Denies urinary frequency Musculoskeletal: Denies frequent falls, Denies gait dysfunction, Denies muscle weakness, Denies myalgias Integumentary: Denies pruritus, Denies rash, Denies wounds Neurological: Reports motor disturbance, Reports paresthesias, Denies change in mentation, Denies confusion, Denies double vision, reports numbness, Denies seizures, Denies syncope, reports weakness Psychiatric: Denies anxiety, Denies depression Physical examination Gen: This is a 39-year-old female. Patient is sitting up in bed and appears to be comfortable and in no acute distress. HEENT: Head is atraumatic, normocephalic. Pupils equal, round. Sclerae is anicteric. NECK: Supple. No JVD. No lymphadenopathy. No thyromegaly. LUNGS: Clear to auscultation. No wheezes or rhonchi. No intercostal retractions. HEART: Regular rate and rhythm. No murmur. ABDOMEN: Soft. Bowel sounds are present. No masses. No tenderness. EXTREMITIES: No pedal edema. No calf tenderness. NEUROLOGICAL: Patient is awake, alert and oriented x3. Cranial nerves 2 through 12 are grossly intact. Muscle strength is weaker on the left, upper extremity 4/5, lower extremity 3/5. Assessment and plan 1. TIA with negative MRI. Continue aspirin 81 mg daily, Lipitor 40 mg at bedtime, Plavix 75 mg daily. MRI as above. Neurology consult. PT, OT, speech therapy consults. 2. Patent foramen ovale with status post closure with Dr. Samuel in May 2019. 3. History of CVA/TIA in 2011 and TIA April 2019. 4. Tobacco use and dependence. Smoking cessation. Nicotine patch 5. Seasonal ALLERGIES. 6. Recurrent depression. Continue Lexapro 20 mg at bedtime. 7. DVT prophylaxis. Heparin subcu. 8. GI prophylaxis. Protonix 9. COVID-19 testing in process. Patient will be admitted to the hospital for a minimum of 2 night stay. Discharge plan: home Impression and plan of care have been directed as dictated by the signing physician. Rosa Elena Jenkins nurse practitioner acting as scribe for signing physician. Past Medical History Past Medical History: Asthma, CVA/TIA, Renal Disease Additional Past Medical History / Comment(s): TIA in 2011 and 2019, PFO with repair, palpitations, migraines, "borderline high cholesterol", asthma as a child, hiatal hernia, UTIs, passed kidney stones. History of Any Multi-Drug Resistant Organisms: None Reported Past Surgical History: Cholecystectomy Additional Past Surgical History / Comment(s): Colonoscopy, colposcopy, SAUL, PFO closure 05/23/2019 Additional Past Anesthesia/Blood Transfusion Reaction / Comment(s): Difficulty waking after cholecystectomy. Smoking Status: Current every day smoker Additional Past Alcohol Use History / Comment(s): Patient is a smoker of one half to three-quarter pack per day for 20 years. She denies alcohol monthly. No illicit drug use. Patient works for [employer]. - Past Family History Father History Unknown: Yes Additional Family Medical History / Comment(s): Patient does not know her father. Mother Additional Family Medical History / Comment(s): Mother at age 55 after a fall and subarachnoid bleed. She had history of sepsis prior to that and acute myloid leukemia. Sister(s) Additional Family Medical History / Comment(s): Patient has one sister and 2 brothers with no major medical problems. Patient has 2 sons and 1 daughter with no major medical problems. Medications and Allergies Home Medications Medication Instructions Recorded Confirmed Type Escitalopram Oxalate [Lexapro] 20 mg PO HS 04/20/19 09/23/19 History Atorvastatin [Lipitor] 40 mg PO HS #30 tab 04/23/19 09/23/19 Rx Albuterol Inhaler (Mhu) [Ventolin 1 - 2 puff INHALATION Q6H PRN 05/21/19 09/23/19 History Hfa Inhaler] Aspirin [Children's Aspirin] 81 mg PO DAILY 05/21/19 09/23/19 History Clopidogrel Bisulfate [Plavix] 75 mg PO DAILY 05/21/19 09/23/19 History Loratadine [Claritin] 10 mg PO DAILY PRN 09/23/19 09/23/19 History Allergies Allergy/AdvReac Type Severity Reaction Status Date / Time nitrofurantoin Allergy Anaphylaxis Verified 09/23/19 11:11 [From Macrobid] Physical Exam Vitals: Vital Signs Temp Pulse Pulse Resp BP BP Pulse Ox 09/23/19 13:23 97.9 F 66 14 111/68 100 09/23/19 12:45 98.1 F 62 18 104/68 99 09/23/19 12:25 62 18 104/68 99 09/23/19 11:30 59 L 18 112/54 100 09/23/19 11:15 67 15 99/56 100 09/23/19 11:00 67 18 99/56 100 09/23/19 10:45 80 18 104/69 99 09/23/19 10:15 80 18 106/64 99 09/23/19 09:56 98.1 F 82 18 110/77 99 Intake and Output 09/22/19 09/23/19 09/23/19 22:59 06:59 14:59 Other: Weight 88.4 kg Results CBC & Chem 7: 09/23/19 10:36 09/23/19 10:36 Labs: Abnormal Lab Results - Last 24 Hours (Table) 09/23/19 Range/Units 10:36 Chloride 109 H (98-107) mmol/L BUN 6 L (7-17) mg/dL Thrombosis Risk Factor Assmnt - Choose All That Apply Any of the Below Risk Factors Present?: Yes Other Risk Factors: No Other congenital or acquired thrombophilia - If yes, enter type in comment: No Each Risk Factor Represents 5 Points: Stroke (< 1 month) Thrombosis Risk Factor Assessment Total Risk Factor Score: 5 Thrombosis Risk Factor Assessment Level: High Risk
[2019-09-23] MEDS ORDERED: ACETAMINOPHEN TAB 325 MG TAB PO PRN (15:17)
[2019-09-23] MEDS: NICOTINE 14MG/24HR PATCH TRANSDERM SCH (15:33)
--- NOTE | 2019-09-23 16:58 | P.CNNES ---
History of Present Illness Consult date: 09/23/19 Requesting physician: Kirk Roberts Reason for Consult: CVA History of Present Illness: Patient is a 39-year-old female, who came to the hospital because of numbness tingling and weakness of left side of the body and some slurred speech that started at around 9:20 AM today. Patient states that she was at work, when she felt tingling sensation in left side of the face. Her coworker noticed some slurred speech and some droopiness to the left side of the face. Then she noticed tingling in the left arm. She notices that when she was walking, her left foot for shaky with numb and tingling. Patient arrived to the ER at 9:55 AM. Patient's vitals on arrival was blood pressure 110/77, pulse rate 82, temperature 98.1. Patient underwent computed tomography scan of the head, which revealed no acute intracranial process. Benign cerebellar tonsillar ectopia of 3.5 mm demonstrated. EKG shows normal sinus rhythm. Chest x-ray showed PFO closure device. No acute cardiopulmonary process. CTA of head and neck from 09/23/2019 showed widely patent vertebral and carotid arteries of the neck. No large vessel intracranial arterial occlusion, significant stenosis or aneurysmal change. Patient's initial NIH stroke scale was 5-6. Patient was admitted by stroke neurologist Dr. Isaacs, who recommended an TPA. Patient subsequently underwent MRI of the brain without contrast, which was normal. No acute ischem ia. Patient's last hemoglobin A1c 5.0 on 04/21/2019. Her total cholesterol 223, LDL 146, HDL 68 and triglycerides 45 on 04/21/2019. Patient states that at present the numbness has resolved, the weakness only noticed when it is being examined, or when she is trying to walk. Otherwise while she is laying in the bed, everything is normal. Patient states that in April 2019, she had similar symptoms like this. Her symptoms started with some unusual sensation in the left ear as if it is under water. She then developed numbness of the left side of the face, left arm and when she stood up, left leg felt weak. The symptoms lasted for 24-36 hours. She has history of PFO, for which she underwent PFO closure on 05/23/2019. Patient follows up with Dr. Purdy. Patient states she has history of migraines since she was age 17. Patient is currently not on any preventative medication. She gets migraines about 3-4 times a week. She usually takes Excedrin. Patient denies hypertension, di abetes. She has smoked half to three fourths pack per day. For the last 20 years. Denies any alcohol or drugs. She does not take any control pills. She has nonhormonal IUD. Patient states one of her great-grandparent had stroke. Review of Systems As per HPI. All other review of systems completely unremarkable. Denies any problems with vision, hoarseness also dysphagia. Denies any chest pain shortness of breath, wheezing or cough. Denies abdominal pain nausea vomiting diarrhea. Patient does complain of mild headache at this time. Past Medical History Past Medical History: Asthma, CVA/TIA, Renal Disease Additional Past Medical History / Comment(s): TIA in 2011 and 2019, PFO with repair, palpitations, migraines, "borderline high cholesterol", asthma as a child, hiatal hernia, UTIs, passed kidney stones. History of Any Multi-Drug Resistant Organisms: None Reported Past Surgical History: Cholecystectomy Additional Past Surgical History / Comment(s): Colonoscopy, colposcopy, SAUL, PFO closure 05/23/2019 Additional Past Anesthesia/Blood Transfusion Reaction / Comment(s): Difficulty waking after cholecystectomy. Smoking Status: Current every day smoker Additional Past Alcohol Use History / Comment(s): Patient is a smoker of one mckoy lf to three-quarter pack per day for 20 years. She denies alcohol monthly. No illicit drug use. Patient works for [employer]. - Past Family History Father History Unknown: Yes Additional Family Medical History / Comment(s): Patient does not know her father. Mother Additional Family Medical History / Comment(s): Mother at age 55 after a fall and subarachnoid bleed. She had history of sepsis prior to that and acute myloid leukemia. Sister(s) Additional Family Medical History / Comment(s): Patient has one sister and 2 brothers with no major medical problems. Patient has 2 sons and 1 daughter with no major medical problems. Medications and Allergies Home Medications Medication Instructions Recorded Confirmed Type Escitalopram Oxalate [Lexapro] 20 mg PO HS 04/20/19 09/23/19 History Atorvastatin [Lipitor] 40 mg PO HS #30 tab 04/23/19 09/23/19 Rx Albuterol Inhaler (Mhu) [Ventolin 1 - 2 puff INHALATION Q6H PRN 05/21/19 09/23/19 History Hfa Inhaler] Aspirin [Children's Aspirin] 81 mg PO DAILY 05/21/19 09/23/19 History Clopidogrel Bisulfate [Plavix] 75 mg PO DAILY 05/21/19 09/23/19 History Loratadine [Claritin] 10 mg PO DAILY PRN 09/23/19 09/23/19 History Allergies Allergy/AdvReac Type Severity Reaction Status Date / Time nitrofurantoin Allergy Anaphylaxis Verified 09/23/19 11:11 [From Macrobid] Physical Examination - Vital Signs Vital Signs: Vital Signs Temp Pulse Pulse Resp BP BP Pulse Ox 09/23/19 15:32 98.6 F 80 14 95/59 100 09/23/19 13:23 97.9 F 66 14 111/68 100 09/23/19 12:45 98.1 F 62 18 104/68 99 09/23/19 12:25 62 18 104/68 99 09/23/19 11:30 59 L 18 112/54 100 09/23/19 11:15 67 15 99/56 100 09/23/19 11:00 67 18 99/56 100 09/23/19 10:45 80 18 104/69 99 09/23/19 10:15 80 18 106/64 99 09/23/19 09:56 98.1 F 82 18 110/77 99 Intake and Output 09/23/19 09/23/19 09/23/19 06:59 14:59 22:59 Intake Total 310 20 Balance 310 20 Intake: IV 10 20 Invasive Line 1 10 10 Invasive Line 2 10 Oral 300 Other: Weight 88.4 kg On examination patient is a young female, in no acute distress. Patient is alert and awake, oriented to time place and person. Speech and language functions are normal. Attention and concentration fund of knowledge is adequate. On cranial exam showed pupils are round and reactive to light, visual valles are full on confrontation. Extraocular muscles are intact with no nystagmus. Patient has some left facial asymmetry, though appears somewhat functional, as it was fluctuating. The tongue protrudes the midline. Palatal elevation sensation normal. Hearing and shoulder shrug normal. On muscle strength testing there is no pronator drift and the strength is normal in arms and legs distally and proximally. Her left deltoid has some give away but appears normal. Reflexes are 2+ and plantars downgoing. Sensory touch is equal with no neglect. No ataxia for [id number]. Tone and bulk of muscles normal. No carotid bruit or murmur, peripheral pulses present. No edema. Chest is clear, and abdomen is soft nontender. Results - Laboratory Findings CBC and BMP: 09/23/19 10:36 09/23/19 10:36 Abnormal Lab Findings: Abnormal Labs 09/23/19 10:36 Chloride 109 H BUN 6 L Assessment and Plan Assessment: * 39-year-old female admitted with left-sided paresthesias, possible left facial droop and left arm weakness. Her NIH stroke scale was 6 on arrival. Patient was not a candidate for TPA. Patient's current NIH stroke scale is 1, with only left facial asymmetry. Exact cause is uncertain. Rule out TIA, rule out complex migraine. * History of TIA. 06/06/2019. * History of migraines * History of PFO closure 05/23/2019 * Tobacco use * Hyperlipidemia Plan: * Patient's MRI of the brain is normal. Continue dual antiplatelet medication and statins. * Patient recommended tobacco cessation. * We will check hypercoagulable workup. * Patient also has history of migraines. She gets migraines about 3-4 times a week. Complex migraine is also a possibility. Patient was recommended to follow up with her neurologist to consider preventative treatment for these migraines. * Continue telemetry monitoring. * Await 2-D echo results.
[2019-09-23] MEDS: HEPARIN SODIUM,PORCINE 5,000 UNIT/ML 1 ML VIAL SQ SCH (20:37)
[2019-09-23] MEDS ORDERED: ATORVASTATIN 40 MG TAB PO SCH (21:00)
[2019-09-23] MEDS ORDERED: ESCITALOPRAM 20 MG TAB PO SCH (21:00)
[2019-09-24 06:58] LABS: Cholesterol 102 mg/dL (<200); HDL Cholesterol 49 mg/dL (40-60); LDL Cholesterol,Calculated 34 mg/dL (0-99); Triglycerides 94 mg/dL (<150)
[2019-09-24] MEDS ORDERED: PANTOPRAZOLE 40 MG TABLET PO SCH (07:30)
[2019-09-24] MEDS: NICOTINE 14MG/24HR PATCH TRANSDERM SCH (08:35)
[2019-09-24] MEDS: HEPARIN SODIUM,PORCINE 5,000 UNIT/ML 1 ML VIAL SQ SCH (08:35)
[2019-09-24] MEDS ORDERED: CLOPIDOGREL 75 MG TAB PO SCH (09:00)
[2019-09-24] MEDS ORDERED: ASPIRIN 81 MG PO SCH (09:00)
--- NOTE | 2019-09-24 09:51 | ECHOF ---
Referral Reason:PFO MEASUREMENTS -------- HEIGHT: 160.0 cm WEIGHT: 88.0 kg BP: RVIDd: 3.1 cm (< 3.3) IVSd: 0.8 cm (0.6 - 1.1) LVIDd: 5.0 cm (3.9 - 5.3) LVPWd: 0.8 cm (0.6 - 1.1) IVSs: 1.4 cm LVIDs: 2.6 cm LVPWs: 1.3 cm LAESV Index (A-L): 16.67 ml/m Ao Diam: 3.3 cm (2.0 - 3.7) AV Cusp: 2.4 cm (1.5 - 2.6) LA Diam: 2.9 cm (2.7 - 3.8) MV EXCURSION: 15.271 mm (> 18.000) MV EF SLOPE: 107 mm/s (70 - 150) EPSS: 0.7 cm MV E Oscar: 0.95 m/s MV DecT: 302 ms MV A Oscar: 0.32 m/s MV E/A Ratio: 2.93 RAP: 5.00 mmHg RVSP: 19.48 mmHg FINDINGS -------- Sinus rhythm. This was a technically good study. The left ventricular size is normal. Left ventricular wall thickness is normal. Overall left vent ricular systolic function is normal with, an EF between 55 - 60 %. The right ventricle is normal in size. Normal LA size by volume 22+/-6 ml/m2. The right atrial size is normal. There is an interatrial closure device in place without evidence of shunt. The aortic valve is trileaflet, and appears structurally normal. No aortic stenosis or regurgitation. The mitral valve is normal. There is trace mitral regurgitation. The tricuspid valve appears structurally normal. Mild tricuspid regurgitation present. Right vent ricular systolic pressure is normal at < 35 mmHg. There is no pulmonic regurgitation present. The aortic root size is normal. Normal inferior vena cava with normal inspiratory collapse consistent with estimated right atrial pre ssure of 5 mmHg. There is no pericardial effusion. CONCLUSIONS -------- 1. Left ventricular wall thickness is normal. 2. Overall left ventricular systolic function is normal with, an EF between 55 - 60 %. 3. Normal LA size by volume 22+/-6 ml/m2. 4. There is an interatrial closure device in place without evidence of shunt. 5. The aortic valve is trileaflet, and appears structurally normal. No aortic stenosis or regurgitati on. 6. There is trace mitral regurgitation. 7. Mild tricuspid regurgitation present. 8. There is no pericardial effusion. EMPLOYMENT COACH: Mayra Nevarez RDCS
--- NOTE | 2019-09-24 12:38 | P.CRDCN ---
History of Present Illness Consult date: 09/24/19 Requesting physician: Hugo Rubin Chief complaint: Facial numbness and left facial droop History of present illness: This is a pleasant 39-year-old female who follows with Dr. Sosa in the office. She has a past medical history for TIA in February 2012 and April 2019 secondary to a PFO, she underwent closure of PFO in May 2019. She also has history of prior UTI, tobacco use and dependence. She presented to the hospital on this occasion with symptoms of left facial numbness, left arm and left leg weakness with left facial drooping. Her initial vital signs were within normal limits, laboratory analysis was unremarkable. CT of the head showed no acute intracranial hemorrhage. Benign cerebral tonsillar ectopia of 3.[address] angiogram of the head and neck revealed that the neck was widely patent with febrile and carotid arteries. Head showed no large vessel intracranial occlusion significant stenosis or aneurysmal change. MRI of the brain showed no acute intracranial process. Chest x-ray showed a PFO closure device in place with no acute cardiopulmonary process. EKG showed a normal sinus rhythm with nonspecific ST-T wave changes. An echocardiogram with Doppler study was performed, reviewed by Dr. Abreu, normal LV function with closure device in place and no evidence of any shunt. Past Medical History Past Medical History: Asthma, CVA/TIA, Renal Disease Additional Past Medical History / Comment(s): TIA in 2011 and 2019, PFO with repair, palpitations, migraines, "borderline high cholesterol", asthma as a child, hiatal hernia, UTIs, passed kidney stones. History of Any Multi-Drug Resistant Organisms: None Reported Past Surgical History: Cholecystectomy Additional Past Surgical History / Comment(s): Colonoscopy, colposcopy, SAUL, PFO closure 05/23/2019 Additional Past Anesthesia/Blood Transfusion Reaction / Comment(s): Difficulty waking after cholecystectomy. Smoking Status: Current every day smoker Additional Past Alcohol Use History / Comment(s): Patient is a smoker of one half to three-quarter pack per day for 20 years. She denies alcohol monthly. No illicit drug use. Patient works for [employer]. - Past Family History Father History Unknown: Yes Additional Family Medical History / Comment(s): Patient does not know her father. Mother Additional Family Medical History / Comment(s): Mother at age 55 after a fall and subarachnoid bleed. She had history of sepsis prior to that and acute myloid leukemia. Sister(s) Additional Family Medical History / Comment(s): Patient has one sister and 2 brothers with no major medical problems. Patient has 2 sons and 1 daughter with no major medical problems. Medications and Allergies Home Medications Medication Instructions Recorded Confirmed Type Escitalopram Oxalate [Lexapro] 20 mg PO HS 04/20/19 09/23/19 History Atorvastatin [Lipitor] 40 mg PO HS #30 tab 04/23/19 09/23/19 Rx Albuterol Inhaler (Mhu) [Ventolin 1 - 2 puff INHALATION Q6H PRN 05/21/19 09/23/19 History Hfa Inhaler] Aspirin [Children's Aspirin] 81 mg PO DAILY 05/21/19 09/23/19 History Clopidogrel Bisulfate [Plavix] 75 mg PO DAILY 05/21/19 09/23/19 History Loratadine [Claritin] 10 mg PO DAILY PRN 09/23/19 09/23/19 History Allergies Allergy/AdvReac Type Severity Reaction Status Date / Time nitrofurantoin Allergy Anaphylaxis Verified 09/23/19 11:11 [From Macrobid] Physical Exam Vitals: Vital Signs Temp Pulse Pulse Resp BP BP Pulse Ox 09/24/19 08:35 97.7 F 75 16 91/55 98 09/24/19 04:00 68 12 101/62 97 09/24/19 00:00 98.1 F 57 L 14 99/55 98 09/23/19 20:00 97.8 F 55 L 16 97/60 98 09/23/19 15:32 98.6 F 80 14 95/59 100 09/23/19 13:23 97.9 F 66 14 111/68 100 09/23/19 12:45 98.1 F 62 18 104/68 99 09/23/19 12:25 62 18 104/68 99 Intake and Output 09/23/19 09/24/19 09/24/19 22:59 06:59 14:59 Intake Total 430 10 240 Balance 430 10 240 Intake: IV 30 10 Invasive Line 1 10 Invasive Line 2 20 10 Oral 400 240 Other: Voiding Method Toilet # Voids 1 2 Weight 85 kg PHYSICAL EXAMINATION: GENERAL: 39-year-old female in no acute distress at the time of my examination HEENT: Head is atraumatic, normocephalic. Pupils equal, round. Sclera anicteric. Conjunctiva are clear. Mucous membranes of the mouth are moist. Neck is supple. There is no elevated jugular venous pressure. No carotid bruit is heard. HEART EXAMINATION: Heart S1, S2 normal. No murmur or gallop heard. CHEST EXAMINATION: Lungs are clear to auscultation and precussion. No chest wall tenderness is noted on palpation or with deep breathing. ABDOMEN: Soft, nontender. Bowel sounds are heard. No organomegaly noted. EXTREMITIES: 2+ peripheral pulses with no evidence of peripheral edema and no calf tenderness noted. NEUROLOGIC patient is awake, alert and oriented X3 . Results 09/23/19 10:36 09/23/19 10:36 Lipids 09/24/19 Range/Units 05:28 Triglycerides 94 (<150) mg/dL Cholesterol 102 (<200) mg/dL HDL Cholesterol 49 (40-60) mg/dL Current Medications Generic Name Dose Route Start Last Admin Trade Name Freq PRN Reason Stop Dose Admin Acetaminophen 650 mg 09/23/19 15:17 09/23/19 15:33 Tylenol Tab PO 650 mg Q6HR PRN Administration Fever and/ or Pain Albuterol Sulfate 2.5 mg 09/23/19 13:45 Ventolin Nebulized INHALATION RT-Q6H PRN Shortness Of Breath Aspirin 81 mg 09/24/19 09:00 09/24/19 08:35 Aspirin PO 81 mg DAILY [place] Administration Atorvastatin Calcium 40 mg 09/23/19 21:00 09/23/19 20:37 Lipitor PO 40 mg HS [place] Administration Clopidogrel Bisulfate 75 mg 09/24/19 09:00 09/24/19 08:35 Plavix PO 75 mg DAILY [place] Administration Escitalopram Oxalate 20 mg 09/23/19 21:00 09/23/19 20:37 Lexapro PO 20 mg HS [place] Administration Heparin Sodium (Porcine) 5,000 unit 09/23/19 21:00 09/24/19 08:35 Heparin SQ 5,000 unit Q12HR [place] Administration Loratadine 10 mg 09/23/19 13:45 Claritin PO DAILY PRN Allergy Symptoms Nicotine 1 patch 09/23/19 14:45 09/24/19 08:35 Habitrol 14mg/24hr Patch TRANSDERM 1 patch DAILY [place] Administration Pantoprazole Sodium 40 mg 09/24/19 07:30 09/24/19 08:35 Protonix PO 40 mg [id number] [place] Administration Intake and Output 09/23/19 09/24/19 09/24/19 22:59 06:59 14:59 Intake Total 430 10 240 Balance 430 10 240 Intake: IV 30 10 Invasive Line 1 10 Invasive Line 2 20 10 Oral 400 240 Other: Voiding Method Toilet # Voids 1 2 Weight 85 kg 09/23/19 10:36 09/23/19 10:36 EKG Interpretations (text) EKG shows a normal sinus rhythm with nonspecific ST-T wave changes Assessment and Plan Plan: Assessment and plan 1. TIA with negative MRI. 2. Patent foramen ovale with status post closure with Dr. Samuel in May 2019. 3. History of CVA/TIA in 2011 and TIA April 2019. 4. Tobacco use and dependence. 5. Seasonal ALLERGIES. 6. Recurrent depression. Plan Echocardiogram with Doppler study was performed which revealed a normal left ventricular systolic function closure device was present with no evidence of any shunt. From cardiology's perspective, the patient may be discharged home today. We will make a follow-up appointment with Dr. Sosa in the office post discharge. DNP note has been reviewed, I agree with a documented findings and plan of care. Patient was seen and examined.
--- NOTE | 2019-09-24 13:21 | P.DS ---
Providers Date of admission: 09/23/19 11:10 Expected date of discharge: 09/24/19 Attending physician: Hugo Rubin Consults: 09/23/19 11:12 Consult Physician Routine Consulting Provider: Nasrin Rudolph Consult Reason/Comments: cva Do you want consulting provider notified?: Yes 09/23/19 15:18 Consult Physician Routine Consulting Provider: Bre Apple Consult Reason/Comments: PFO, TIA Do you want consulting provider notified?: Yes Primary care physician: Marcelino Salgado [facility] Course: This is a 39-year-old female patient of Dr. Salgaod with past medic al history of TIA in Feb 2012 and April 2019 secondary to patent PFO status post closure by Dr. Samuel in May 2019, history of UTI, and tobacco use and dependence. Patient presented due to left facial numbness, left arm and leg weakness, left face drooping. Patient states that she went to work and her boss noticed that she had a left-sided facial droop and her speech was slurred. She went to stand up and she noticed that she was weak on the left leg and also her left arm and she had numbness of her left side of her face. Since her last admission in April of this year, patient followed up with Dr. 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 She is scheduled for repeat CAT scan in October of this year. She also has lesions on her spinal cord which are being monitored. The patient states that weakness is significantly improved but she does have some residual left-sided weakness. Speech essentially back to normal. No left-sided droop noted. Patient states that she has been taking aspirin 81 mg, Lipitor 40 mg and Plavix 75 mg daily as scheduled. Patient continues to be an active smoker. Patient came into [facility] emergency center for evaluation. Her initial vital signs within normal limits and laboratory analysis was unremarkable. CT head showed no acute intracranial hemorrhage. Benign cerebellar tonsillar ectopia of 3.[address] angiogram of the head and neck revealed neck was widely patent vertebral and carotid arteries. Head showed no large vessel intracranial arterial occlusion, significant stenosis or aneurysmal change. MRI of the brain showed no acute intracranial process. Chest x-ray revealed PFO closure device. No acute cardiopulmonary process. Patient was admitted to the cardiac stepdown unit. Consult with neurology. 09/23: Patient has been seen by Dr. Rudolph for rule out TIA rule out complex mi graine. Hypercoagulopathy workup was ordered. Beta-2 microglobulin normal at 1.78, triglycerides 94, cholesterol 102, LDL 34, HDL 49, homocystine 7.82. Coronavirus not detected. She has had resolution of her symptoms. Patient was also seen by cardiology and cleared for discharge. Echocardiogram reveals EF 55- 60%, interatrial closure device in place without evidence of shunt, trace mitral regurgitation, mild tricuspid regurgitation. Patient will be discharged home today in stable condition. Assessment and plan 1. Complex migraine with negative MRI. 2. Patent foramen ovale with status post closure with Dr. Samuel in May 2019. 3. History of CVA/TIA in 2011 and TIA April 2019. 4. Tobacco use and dependence. Smoking cessation. 5. Seasonal ALLERGIES. 6. Recurrent depression. 7. COVID-19 infection not present. Discharge plan: home Impression and plan of care have been directed as dictated by the signing physician. Rosa Elena Jenkins nurse practitioner acting as scribe for signing physician. Patient Condition at Discharge: Good Plan - Discharge Summary Discharge Rx Participant: No New Discharge Prescriptions: New Nicotine 14Mg/24Hr Patch [Habitrol] 1 patch TRANSDERM DAILY patch Continue Escitalopram Oxalate [Lexapro] 20 mg PO HS Atorvastatin [Lipitor] 40 mg PO HS #30 tab Clopidogrel Bisulfate [Plavix] 75 mg PO DAILY Aspirin [Children's Aspirin] 81 mg PO DAILY Albuterol Inhaler (Mhu) [Ventolin Hfa Inhaler (Mhu)] 1 - 2 puff INHALATION Q6H PRN PRN Reason: Shortness Of Breath Loratadine [Claritin] 10 mg PO DAILY PRN PRN Reason: Allergy Symptoms Discharge Medication List Escitalopram Oxalate [Lexapro] 20 mg PO HS 04/20/19 [History] Atorvastatin [Lipitor] 40 mg PO HS #30 tab 04/23/19 [Rx] Albuterol Inhaler (Mhu) [Ventolin Hfa Inhaler (Mhu)] 1 - 2 puff INHALATION Q6H PRN 05/21/19 [History] Aspirin [Children's Aspirin] 81 mg PO DAILY 05/21/19 [History] Clopidogrel Bisulfate [Plavix] 75 mg PO DAILY 05/21/19 [History] Loratadine [Claritin] 10 mg PO DAILY PRN 09/23/19 [History] Nicotine 14Mg/24Hr Patch [Habitrol] 1 patch TRANSDERM DAILY patch 09/24/19 [Rx] Follow up Appointment(s)/Referral(s): Hiral Purdy MD [REFERRING] - 1 Week Marcelino Salgado DO [Primary Care Provider] - 1 Week Discharge Disposition: HOME SELF-CARE
[2019-09-24 14:10] LABS: Beta 2 Microglobulin 1.78 mg/L (0.61-2.37)
[2019-09-24 14:56] LABS: Cardiolipin Ab IgG Interp NEGATIVE (NEGATIVE); Cardiolipin Ab IgM Interp NEGATIVE (NEGATIVE); Cardiolipin IgA Antibody 0.8 U/mL; Cardiolipin IgM Antibody 1.1 U/mL
--- NOTE | 2019-09-24 17:45 | P.PN ---
Subjective Progress Note Date: 09/24/19 Patient is doing much better. All symptoms resolved. Objective - Vital Signs Vital signs: Vital Signs Temp 97.7 F 09/24/19 08:35 Pulse 75 09/24/19 08:35 Resp 16 09/24/19 08:35 BP 91/55 09/24/19 08:35 Pulse Ox 98 09/24/19 08:35 Intake & Output 09/23/19 09/24/19 09/24/19 18:59 06:59 18:59 Intake Total 730 20 240 Balance 730 20 240 Weight 88.4 kg 85 kg Intake: IV 30 20 Invasive Line 1 20 Invasive Line 2 10 20 Oral 700 240 Other: Voiding Method Toilet # Voids 1 2 - Exam Nonfocal. - Labs CBC & Chem 7: 09/23/19 10:36 09/23/19 10:36 Assessment and Plan Assessment: * 39-year-old female admitted with left-sided paresthesias, possible left facial droop and left arm weakness. Her NIH stroke scale was 6 on arrival. Patient was not a candidate for TPA. Patient's current NIH stroke scale is 0. Exact cause is uncertain. Rule out TIA versus complex migraine. * History of TIA. 06/06/2019. * History of migraines * History of PFO closure 05/23/2019 * Tobacco use * Hyperlipidemia Plan: * Patient's MRI of the brain is normal. Continue dual antiplatelet medication and statins. * Patient recommended tobacco cessation. * Hypercoagulable workup has been done. Cardiolipin antibodies negative. Homocystine level 7.82 normal. All other results pending. Patient will follow up with her neurologist Dr. Purdy, to follow-up on hypercoagulable workup. * Patient also has history of migraines. She gets migraines about 3-4 times a week. Complex migraine is also a possibility. Patient was recommended to follow up with her neurologist to consider preventative treatment for these migraines. * Telemetry monitoring showing sinus rhythm, sinus bradycardia.. * 2-D echo showed normal left-ventricular wall thickness. EF is 55-60% normal. Normal left atrial size. There is an interatrial closure device in place without evidence of shunt. No embolic source. * Neurologically clear for discharge.
[2019-09-25 12:30] LABS: APTT 42 Sec(s) (<43); Dilute Russell Viper Venom 35 Sec(s) (<44)
[2019-09-26 08:39] VITALS: BP 91/55; PULSE 75; RESP 16; TEMP 97.7
[2019-09-26 11:16] LABS: Anti-Thrombin III Activity 65 % (79-109)
[2019-09-26 11:38] LABS: Protein C (Activity) 91 % (71-138)
== END 2019-09-24 12:20 | disposition home or self-care (01) ==
LOC: EC 09:55 → INTOOBSV 11:10 → 3SCARD 11:10 → UNDODISIN 09-24 12:20
PROVIDERS: ADMIT Internal Medicine Geriatric Medicine; ATTEND Internal Medicine Geriatric Medicine
DX: G43.109 Migraine with aura, not intractable, without status migrainosus (principal); Z86.73 Personal history of transient ischemic attack (TIA), and cerebral infarction without residual deficits; Z87.440 Personal history of urinary (tract) infections; Z90.49 Acquired absence of other specified parts of digestive tract; Z98.890 Other specified postprocedural states; F17.210 Nicotine dependence, cigarettes, uncomplicated; Z03.818 Encounter for observation for suspected exposure to other biological agents ruled out; Z80.6 Family history of leukemia; G95.9 Disease of spinal cord, unspecified; F32.9 Major depressive disorder, single episode, unspecified; J45.909 Unspecified asthma, uncomplicated; N28.9 Disorder of kidney and ureter, unspecified; K44.9 Diaphragmatic hernia without obstruction or gangrene; Z87.442 Personal history of urinary calculi; E78.00 Pure hypercholesterolemia, unspecified; Z86.19 Personal history of other infectious and parasitic diseases; Z85.6 Personal history of leukemia; R29.810 Facial weakness; R47.81 Slurred speech; E78.5 Hyperlipidemia, unspecified; Z87.74 Personal history of (corrected) congenital malformations of heart and circulatory system; Z82.3 Family history of stroke; Z79.02 Long term (current) use of antithrombotics/antiplatelets; Z79.82 Long term (current) use of aspirin; Z79.899 Other long term (current) drug therapy; Z88.1 Allergy status to other antibiotic agents
CPT/HCPCS: 96372 ×2; 96360; 96361; 99285; 36415; 93005; 93306; 97161; 85303; 85306; 81291; 80061; 80053; 81241; 81240; 84484; 85025; 85610; 85730 ×2; 85613; 83090; 82232; 85300; 86147; 71046; 70496; 70450; 70498; 70551; G0378 ×2; U0003; S4990 ×2; J1644 ×2; Q9967

== ENCOUNTER → 2019-10-22 | Outpatient (CLI) | payer OTHER ==
--- NOTE | 2019-10-23 06:25 | MR ---
EXAMINATION TYPE: MR brain wo/w con DATE OF EXAM: 10/22/2019 COMPARISON: Prior MRI brain April 21, 2019. Recent CT brain September 23, 2019. HISTORY: History of recurrent TIA's per order. Recent occurrence of left-sided weakness and visual di sturbances for patient. TECHNIQUE: Multiplanar, multisequence images of the brain and brainstem is performed without and with IV contras t, utilizing 9 mL intravenous Gadavist . FINDINGS: Diffusion weighted images demonstrate no evidence of a recent infarct or other diffusion ab normality. There is no extra-axial fluid collection or significant white matter signal abnormality. The ventricular system and cisternal spaces are normal in size and appearance. The brain volume is age appropriate. Midline structures demonstrate normal morphology. Suprasellar cistern is maintained. Slightly low-lyi ng cerebellar tonsils but not greater than 5 mm inferior dissent, no significant change from prior st udies. Post contrast images demonstrate no abnormal enhancement. The dural venous sinuses appear pat ent. New Moderate to severe eccentric mucosal thickening inferior aspect right maxillary sinus. Some artifact distortion at level of lobes is redemonstrated. IMPRESSION: No MRI evidence for recent infarct. New inferior right maxillary sinus disease otherwise fairly unremarkable study.
== END | disposition home or self-care (01) ==
LOC: RADMRIMAIN 15:33
PROVIDERS: ATTEND Psychiatry & Neurology Neurology
DX: Z09 Encounter for follow-up examination after completed treatment for conditions other than malignant neoplasm (principal); Z86.73 Personal history of transient ischemic attack (TIA), and cerebral infarction without residual deficits
CPT/HCPCS: 70553; A9585

== ENCOUNTER → 2019-10-22 | Outpatient (CLI) | payer OTHER ==
[2019-10-23 00:45] LABS: T4, Free (Free Thyroxine) 0.8 ng/dL (0.80-1.80)
[2019-10-23 06:12] LABS: EBV-EA (IgG) >8.0 AI; EBV-EBNA(IgG) <0.2 AI; EBV-VCA (IgG) 1.8 AI; EBV-VCA (IgM) 0.2 AI
[2019-10-24 11:29] LABS: Anti-Thrombin III Activity 80 % (79-109)
== END | disposition home or self-care (01) ==
LOC: LABWHC1 14:20
PROVIDERS: ATTEND Family Medicine
DX: D51.8 Other vitamin B12 deficiency anemias (principal); G47.33 Obstructive sleep apnea (adult) (pediatric); R53.83 Other fatigue; G45.9 Transient cerebral ischemic attack, unspecified; E34.8 Other specified endocrine disorders; D68.59 Other primary thrombophilia
CPT/HCPCS: 36415; 82164; 84439; 84443; 85300; 85652; 86038; 86431; 86663; 86664; 86665; 86812

== ENCOUNTER → 2019-10-31 | Outpatient (CLI) | payer OTHER | END | disposition home or self-care (01) | LOC: LABWHC1 14:39 | PROVIDERS: ATTEND Family Medicine | DX: D51.8 Other vitamin B12 deficiency anemias (principal); G47.33 Obstructive sleep apnea (adult) (pediatric); R53.83 Other fatigue; G45.9 Transient cerebral ischemic attack, unspecified; E34.8 Other specified endocrine disorders; D68.59 Other primary thrombophilia | CPT/HCPCS: 36415; 86812 ==

== ENCOUNTER → 2019-12-17 | Outpatient (CLI) | payer OTHER ==
--- NOTE | 2020-01-02 11:49 | EM ---
EVENT MONITOR EVENT MONITOR: Patient was monitored between December 16 and December 27, 2019. The rhythm strip revealed sinus mechanism with normal conduction. Episodes of sinus tachycardia were noted. No atrial fibrillation was noted. No ventricular ectopic activity was reported. Symptoms of chest pain did not correlate with any dysrhythmia. MMISAURA / EVANGELISTA: [id number] /
== END | disposition home or self-care (01) ==
LOC: RADECHMAIN 11:45
PROVIDERS: ATTEND Family Medicine
DX: R00.0 Tachycardia, unspecified (principal); R07.9 Chest pain, unspecified
CPT/HCPCS: 93270

== ENCOUNTER → 2020-01-02 | Outpatient (CLI) | payer OTHER ==
--- NOTE | 2020-01-03 07:47 | MR ---
EXAMINATION TYPE: MR cervical spine wo con DATE OF EXAM: 01/02/2020 COMPARISON: 04/22/2019 HISTORY: Pain TECHNIQUE: Multiplanar, multisequence images of the cervical spine were acquired. C2-C3: No evidence for degenerative disc disease. No disc bulge/herniation or protrusion. No Canal stenosis. Foramina are patent bilaterally. C3-C4: No evidence for degenerative disc disease. No disc bulge/herniation or protrusion. No Canal stenosis. Foramina are patent bilaterally. C4-C5: Mild uncovertebral joint hypertrophy bilaterally. Mild right-sided foraminal encroachment. No focal disc herniation or canal stenosis. C5-C6: Mild bilateral uncovertebral joint hypertrophy. Mild disc desiccation. Mild right-sided forami nal encroachment. No focal herniation or canal stenosis. C6-C7: No evidence for degenerative disc disease. No disc bulge/herniation or protrusion. No Canal stenosis. Foramina are patent bilaterally. C7-T1: No evidence for degenerative disc disease. No disc bulge/herniation or protrusion. No Canal stenosis. Foramina are patent bilaterally. Cerebellar tonsils are low-lying in position approximately 2 mm below the foramen magnum. No tonsilla r beaking. No abnormal signal within the visualized spinal cord. IMPRESSION: 1. Low-lying cerebellar tonsils measuring approximately 2 mm below the foramen magnum correlate for C hiari malformation. No tonsillar beaking or abnormal signal in the spinal cord. 2. Multilevel uncovertebral joint hypertrophy with mild right-sided foraminal encroachment C4-5 and C 5-C6. No definite nerve root contact.
== END | disposition home or self-care (01) ==
LOC: RADMRIMAIN 15:27
PROVIDERS: ATTEND Psychiatry & Neurology Neurology
DX: M89.38 Hypertrophy of bone, other site (principal)
CPT/HCPCS: 72141

== ENCOUNTER → 2020-03-24 | Outpatient (CLI) | payer OTHER ==
--- NOTE | 2020-03-25 07:26 | MR ---
EXAMINATION TYPE: MR tspine/lspine wo con DATE OF EXAM: 03/24/2020 COMPARISON: MRI thoracic spine April 22, 2019. MRI lumbar spine June 09, 2019. HISTORY: Chiari malformation, and mid to lower back pain. TECHNIQUE: Multiplanar, multisequence imaging of the thoracic and lumbar spine are performed without IV contrast. FINDINGS: T-SPINE: FINDINGS: Coronal images redemonstrate slight scoliotic curvature. Spinal cord redemonstrates normal course, caliber, and signal as it courses the thoracic spine. Vertebral body heights and alignment remain satisfactory. Bone marrow signal intensity is preserved. Low-lying cerebellar tonsils not artemio ntified on sagittal T2 counting series. Review of the axial images shows no significant new disc herniation or spinal canal stenosis or neura l foraminal narrowing at any thoracic level. Visualized thorax and upper abdomen show no suspicious a bnormality. IMPRESSION: Unremarkable study. No significant change from prior. L-SPINE: Sagittal images of the lumbar spine show vertebral body heights to remain satisfactory. Stable slight grade 1 anterolisthesis L5 on S1 along posterior vertebral body margin. Disc desiccation L4-L5 and L 5-S1 levels with preservation of disc height is redemonstrated. The conus medullaris remains normal in position and signal ending superior L1 level. The bone marrow signal intensity remains within nor mal limits. Axial images show T12-L1, L1-L2, L2-L3, and L3-L4 levels all to appear within normal limits. Axial images at the L4-L5 level show focal central disc protrusion minimally effacing anterior thecal sac, patent bilateral neural foramina. No significant change from prior. Axial images at the L5-S1 level shows spondylolisthesis with new small superior disc cruciate and sag ittal image 9, spinal canal is preserved as is increased epidural fat at this level. There is mild to moderate left greater than right bilateral anterior inferior neural foraminal narrowing. Partial visualization of anteverted uterus and at least mildly distended bladder. IMPRESSION: Degenerative changes lower lumbar spine as detailed above.
== END | disposition home or self-care (01) ==
LOC: RADMRIMAIN 17:53
PROVIDERS: ATTEND Neurological Surgery
DX: M47.816 Spondylosis without myelopathy or radiculopathy, lumbar region (principal); Q07.9 Congenital malformation of nervous system, unspecified
CPT/HCPCS: 72146; 72148

== ENCOUNTER → 2020-05-05 | Outpatient (CLI) | payer OTHER ==
--- NOTE | 2020-05-05 20:48 | CONS ---
CONSULTATION DATE OF SERVICE: 05/05/2020 This is a 39-year-old lady who has been evaluated in [facility] for possible obstructive and central sleep apnea-hypopnea syndrome. HISTORY OF PRESENT ILLNESS/SLEEP-WAKE EVALUATION: Patient's usual sleep schedule on weekdays is from 9 or 10 p.m. to 6:45 or 7 a.m. and on weekends from 9 or 10 p.m. until 9 or 10 a.m. Sometimes she has problems falling asleep, although no TV in bedroom. She sleeps on the side position usually. She wakes up from sleep 3 times, with 2 episodes of nocturia, and sometimes her awakenings are related to choking, grinding teeth, dry mouth, panic attack, episodes of palpitation and heartburn. In the morning the patient wakes up tired, has problems with memory, concentration, irritability and episodes of anxiety. [place] Sleepiness Scale is significantly increased to 12. She takes 2 caffeinated beverages during the day. No history of hypnagogic hallucinations, sleep paralysis or cataplexy. PAST MEDICAL HISTORY: Positive for malformation, history of multiple TIAs with different clinical presentations, including changes of vision, weakness which resolved within 24 hours, episodes of bradycardia, asthma, allergies. PAST SURGICAL HISTORY: Patent foramen ovale closed in 2019, cholecystectomy. MEDICATIONS: 1. Escitalopram 20 mg once a day. 2. Atorvastatin 10 mg once a day. 3. 10 mg once a day. SOCIAL HISTORY: Positive for smoking; quit recently. Alcohol consumption: None. FAMILY HISTORY: Sleep apnea, hypertension. REVIEW OF SYSTEMS: Multiple awakenings from sleep. PHYSICAL EXAMINATION: GENERAL: A pleasant lady without distress. VITAL SIGNS: BP 110/74, HR 68, RR 15, height 5 feet 3 inches, weight 213.8, temperature 98.0, oxygen saturation at room air 98%. HEENT: PERRLA, EOMI. Evaluation of oropharynx showed tongue protrudes midline. Mallampati II to III. NECK: Supple. No JVD. Thyroid is not palpable. Neck measures 14 inches in circumference. LUNGS: Clear to percussion and to auscultation. Good air exchange. No wheezing or rhonchi. HEART: S1, S2 regular. No murmurs, gallops or rubs. ABDOMEN: Slightly obese. EXTREMITIES: No clubbing or cyanosis. VACUUM CASTER: Awake, alert, and oriented X3. Cranial nerves 2 to 7 intact. There is no fasciculation or atrophy. noted. No focal deficits observed. IMPRESSION: 1. malformation. 2. Possibly obstructive and central sleep apnea-hypopnea syndrome. The patient has multiple awakenings from sleep. malformation may increase risk for central sleep apnea and obstructive sleep apnea. 3. Obesity. BMI 37.7. 4. Status post patent foramen ovale closed in 2019. 5. History of several transient ischemic attacks. 6. Asthma. 7. Allergies. 8. Hyperlipidemia. 9. History of bradycardia episodes. 10.Hyperlipidemia. 11.Status post cholecystectomy. PLAN: 1. Polysomnography for evaluation of patient's breathing during sleep. 2. CPAP/BiPAP titration if sleep study confirms obstructive sleep apnea-hypopnea syndrome. 3. Preferable position during sleep on the side. 4. No driving if patient feels any sleepiness. 5. I will see patient for follow up visit to explain results of testing and following plan. Thank you very much for referring this patient for consultation. Sincerely, Christopher Brown MD, PhD, FAASM Diplomat of [place] [employer] [employer] [facility] [place] MMODL / IJN: [id number] /
== END | disposition home or self-care (01) ==
LOC: SLEEP 16:01
PROVIDERS: ATTEND Internal Medicine
DX: G47.33 Obstructive sleep apnea (adult) (pediatric) (principal); E66.9 Obesity, unspecified; J45.909 Unspecified asthma, uncomplicated; E78.5 Hyperlipidemia, unspecified; Z90.49 Acquired absence of other specified parts of digestive tract; Z68.37 Body mass index [BMI] 37.0-37.9, adult; Z98.890 Other specified postprocedural states; Z86.79 Personal history of other diseases of the circulatory system; Z79.899 Other long term (current) drug therapy
CPT/HCPCS: 99211

== ENCOUNTER → 2020-05-20 | Outpatient (CLI) | payer OTHER ==
[2020-05-20 23:36] LABS: Basophils # (A) 0.05 X 10*3/uL (0.00-0.10); Basophils % (A) 0.6 %; Eosinophils # (A) 0.32 X 10*3/uL (0.04-0.35); Eosinophils % (A) 3.6 %; HCT 40.1 % (37.2-46.3); Lymphocytes # (A) 3.38 X 10*3/uL (0.90-5.00); Lymphocytes % (A) 37.7 %; MCH 30.8 pg (27.0-32.0); MCHC 32.4 g/dL (32.0-37.0); Monocytes # (A) 0.68 X 10*3/uL (0.20-1.00); Monocytes % (A) 7.6 %; Neutrophils # (A) 4.52 X 10*3/uL (1.80-7.70); Neutrophils % (A) 50.3 %; Platelet Count 325 X 10*3/uL (140-440); RBC 4.22 X 10*6/uL (4.10-5.20); RDW 12.4 % (11.5-14.5); WBC 8.97 X 10*3/uL (4.50-10.00)
[2020-05-21 09:45] LABS: African American GFR (CKD) 94.7 (60.0-200.0); Albumin 4.4 g/dL (3.80-4.90); Albumin/Globulin Ratio 1.83 (1.60-3.17); Anion Gap 11.7 mmol/L (4.00-12.00); BUN/Creat Ratio 17.78 Ratio (12.00-20.00); Calcium 9.5 mg/dL (8.7-10.3); Carbon Dioxide 25.3 mmol/L (21.6-31.8); Globulin 2.4 g/dL (1.6-3.3); Non-African American GFR(CKD) 81.7 (60.0-200.0); Potassium 4.1 mmol/L (3.5-5.5); Total Bilirubin 0.2 mg/dL (0.3-1.2); Total Protein 6.8 g/dL (6.2-8.2)
== END | disposition home or self-care (01) ==
LOC: LABWHC1 15:12
PROVIDERS: ATTEND Internal Medicine
DX: L50.9 Urticaria, unspecified (principal)
CPT/HCPCS: 36415; 80053; 84443; 85025; 86038; 86160

== ENCOUNTER → 2020-08-21 | Outpatient (CLI) | payer OTHER ==
--- NOTE | 2020-08-21 09:53 | MR ---
EXAMINATION TYPE: MR shoulder LT wo con DATE OF EXAM: 08/21/2020 COMPARISON: None HISTORY: Left shoulder pain, decreased ROM. TECHNIQUE: Multiplanar, multisequence imaging of the left shoulder is performed without contrast. FINDINGS: Rotator Cuff: Intact Acromioclavicular Joint: No significant degeneration. Glenohumeral Joint: No significant degeneration. No joint effusion Labrum: The labrum appears grossly intact given limitation of non-arthrogram study. Biceps Tendon: The long head of biceps is in normal location within bicipital groove. Bone marrow signal: No focal abnormal marrow signal is appreciated. Other: No additional significant abnormality is appreciated. IMPRESSION: No significant abnormality seen.
== END | disposition home or self-care (01) ==
LOC: RADMRIMAIN 09:01
PROVIDERS: ATTEND Family Medicine
DX: M25.512 Pain in left shoulder (principal)

== ENCOUNTER → 2020-11-05 | Outpatient (CLI) | payer OTHER ==
--- NOTE | 2020-11-06 02:03 | MR ---
EXAMINATION TYPE: MR cervical spine wo con DATE OF EXAM: 11/05/2020 COMPARISON: 01/02/2020 HISTORY: Neck pain, tightness left side of neck, BUE radic. Hx chiari decompression May 2020. Multiplanar multiecho imaging of the cervical spine without contrast. Cervical vertebra have normal alignment. Disc spaces are fairly normal. Cervical spinal cord has norm al signal pattern. There is no edema. There is no compression fracture. There is no spinal stenosis. There is no cervical disc herniation. Facet joints are intact. There is craniotomy defect at the skul l base. Cerebellum is intact. Brainstem appears intact. IMPRESSION: Negative MR scan of the cervical spine. No cervical disc herniation or spinal stenosis. No fracture. Craniotomy defect noted at the skull base. Cervical spine not changed compared to old exam.
== END | disposition home or self-care (01) ==
LOC: RADMRIMAIN 21:28
PROVIDERS: ATTEND Family Medicine
DX: M54.12 Radiculopathy, cervical region (principal); Z98.890 Other specified postprocedural states
CPT/HCPCS: 72141

== ENCOUNTER → 2020-11-26 | Outpatient (CLI) | payer OTHER ==
[2020-11-27 07:07] LABS: Aspergillus fumagatus IgE <0.10 kU/L; Dermato. farinae IgE 1.21 kU/L
[2020-11-27 07:08] LABS: Cladosporian herbarum IgE <0.10 kU/L; Ragweed,Common IgE 6.78 kU/L
[2020-11-27 07:09] LABS: Birch IgE <0.10 kU/L
[2020-11-29 10:36] LABS: Bermuda Grass IgE <0.10 kU/L (<0.10); Egg Yolk IgE Class CLASS 0; Meadow Fescue IgE <0.10 kU/L (<0.10); Meadow Fescue IgE Class CLASS 0; Meadow Grs (KY blue) IgE <0.10 kU/L (<0.10); Meadow Grs (KY blue) IgE Class CLASS 0; Timothy Grass IgE <0.10 kU/L (<0.10); Timothy Grass IgE Class CLASS 0
[2020-11-29 10:37] LABS: House Dust (H-S) IgE Class CLASS 1; Penicillium notatum IgE Class CLASS 0
[2020-11-29 10:38] LABS: Alt. alternata IgE Class CLASS 0; Alternaria alternata IgE <0.10 kU/L (<0.10); Cottonwood IgE <0.10 kU/L (<0.10); Sycamore(Mpl.Lf) IgE <0.10 kU/L (<0.10); Sycamore(Mpl.Lf) IgE Class CLASS 0; Willow Tree IgE <0.10 kU/L (<0.10)
[2020-11-29 10:39] LABS: Beech IgE <0.10 kU/L (<0.10); Goldenrod IgE 0.13 kU/L (<0.10); Goldenrod IgE Class CLASS 0/1; Lamb's Quarter IgE <0.10 kU/L (<0.10); Lamb's Quarter IgE Class CLASS 0
[2020-11-29 10:40] LABS: Ragweed, Giant IgE 1.62 kU/L (<0.10); Ragweed, Giant IgE Class CLASS 2; Sheep Sorrel IgE <0.10 kU/L (<0.10); Sheep Sorrel IgE Class CLASS 0
[2020-11-29 10:41] LABS: English Plantain IgE Class CLASS 0
== END | disposition home or self-care (01) ==
LOC: LABWHC1 15:30
PROVIDERS: ATTEND Internal Medicine
DX: L50.9 Urticaria, unspecified (principal)
CPT/HCPCS: 36415; 82785; 86003

== ENCOUNTER → 2020-12-09 | Outpatient (CLI) | payer OTHER ==
[2020-12-10 11:55] LABS: Egg Yolk IgE Class CLASS 0
== END | disposition home or self-care (01) ==
LOC: LABWHC1 15:57
PROVIDERS: ATTEND Internal Medicine
DX: L50.9 Urticaria, unspecified (principal)
CPT/HCPCS: 36415; 86003

== ENCOUNTER → 2021-02-03 | Outpatient (CLI) | payer OTHER ==
--- NOTE | 2021-02-04 09:40 | SFUN ---
SLEEP CENTER FOLLOW UP NOTE DATE OF SERVICE: 02/03/2021 40-year-old lady has been followed in [facility] for excessive daytime sleepiness to discuss results of sleep study and following plan. Recently the patient had polysomnogram and I discussed results of sleep study with patient in detail. No significant respiratory abnormalities have been documented during the sleep study. Normal oxygenation during the sleep. Minimal amount of periodic limb movements have been documented. Patient continues to feel sleepy during the day. [place] Sleepiness Scale today is 17. MEDICATIONS: Robaxin, ibuprofen, Lexapro, Zyrtec. PHYSICAL EXAMINATION: GENERAL: Patient in no distress. BP 118/79, HR 76, RR 15, height 5 feet 4 inches, weight 230.4, temperature 97.3, oxygen saturation at room air 96%. NECK: Supple, no JVD. Thyroid is not palpable. LUNGS: Clear to percussion and to auscultation. Good air exchange. No wheezing or rhonchi. HEART: S1, S2 regular. No murmurs, gallops, or rubs. ABDOMEN: Slightly obese. Soft and nontender. Bowel sounds are present. No organomegaly appreciated. EXTREMITIES: No clubbing or cyanosis. ICT MANAGERS: Awake, alert, and oriented X3. Cranial nerves 2 to 7 intact. There is no fasciculation or atrophy. noted. No focal deficits observed. IMPRESSION: 1. No significant respiratory abnormalities during the sleep study. 2. The patient continues to feel significant sleepiness. [place] Sleepiness Scale increased to 17 today. Differential diagnosis includes hypersomnia and narcolepsy without cataplexy. 3. Status post open foramen ovale, closed in 2019. 4. History of transient ischemic attacks several times. 5. Asthma. 6. ALLERGIES. 7. Hyperlipidemia. 8. Status post cholecystectomy. PLAN: 1. Multiple sleep latency test for evaluation of patient sleepiness and to check for any sleep onset REM periods during naps. 2. Sleep hygiene with regular time in bed for at least 8 hours. 3. No driving if feeling sleepiness. 4. Preferable position during sleep on the side. 5. Losing weight. Thank you very much for allowing me to participate in management of your patient. Sincerely, Christopher Brown MD, PhD, FAASM Diplomat of [employer] [employer] Sleep Medicine Board of [place] [employer] [facility] [place] MMODL / IJN: [id number] /
== END ==
LOC: SLEEP 16:43
PROVIDERS: ATTEND Internal Medicine
DX: G47.10 Hypersomnia, unspecified (principal); G45.9 Transient cerebral ischemic attack, unspecified; J45.909 Unspecified asthma, uncomplicated; E78.5 Hyperlipidemia, unspecified; T78.40XA Allergy, unspecified, initial encounter; F17.200 Nicotine dependence, unspecified, uncomplicated; Z90.49 Acquired absence of other specified parts of digestive tract; Z98.890 Other specified postprocedural states; Z79.899 Other long term (current) drug therapy; Z88.1 Allergy status to other antibiotic agents

== ENCOUNTER → 2021-03-07 | Outpatient (CLI) | payer OTHER ==
--- NOTE | 2021-03-08 07:39 | MR ---
EXAMINATION TYPE: MR brain/cspine wo DATE OF EXAM: 03/07/2021 COMPARISON: CT brain September 23, 2019. MRI cervical spine April 22, 2019. MRI brain March 13, 2012. HISTORY: Prior on synapse, HAs, dizziness, shoulder and back pain, numbness to finger tips, history o f Chiari decompression TECHNIQUE: Multiplanar, multisequence imaging of the brain and brainstem and cervical spine are all p erformed without IV contrast. FINDINGS: Brain: Diffusion weighted images demonstrate no evidence of a recent infarct or other diffusion abnormality. There is no extraaxial fluid collection or significant white matter signal abnormality. The ventricu lar system and cisternal spaces are normal in size and appearance. The brain volume is age appropria te. Midline structures demonstrate normal morphology. New low occipital craniectomy and Chiari correction surgery with successful decompression of low-lying cerebellar tonsil. Normal vascular flow voids are present. The visualized sinuses are clear and the globes are intact. Cervical spine: FINDINGS: Sagittal images of the cervical spine show the craniocervical junction to appear within nor mal limits after interval surgical correction. The cervical and upper thoracic spinal cord remains n ormal in course, caliber, and signal. Vertebral alignment is stable and satisfactory. The vertebral body and intravertebral disk heights are normal. The bone marrow signal intensity is within normal limits. Axial images especially lower cervical levels are degraded by artifact but there is no significant sp inal canal stenosis or disc herniation. Neural foramina are grossly patent. IMPRESSION: Successful interval reduction or decompression of low-lying cerebellar tonsils. No new si gnificant findings identified.
== END | disposition home or self-care (01) ==
LOC: RADMRIMAIN 18:35
PROVIDERS: ATTEND Neurological Surgery
DX: G93.5 Compression of brain (principal); Q07.9 Congenital malformation of nervous system, unspecified; M54.9 Dorsalgia, unspecified; M25.519 Pain in unspecified shoulder
CPT/HCPCS: 70551; 72141

== ENCOUNTER → 2023-04-16 | Outpatient (CLI) | payer BC ==
--- NOTE | 2023-04-17 20:45 | MM ---
Reason for Exam: Screening (asymptomatic). Baseline mammogram. Patient History: Menarche at age 14. First Full-Term at age 18. Patient has history of breast feeding. Patient used Hormonal Contraceptives for 20 years. Maternal grandmother had breast cancer, age 32. Last menstrual period: 03/19/2023 Risk Values: Katie 5 year model risk: 0.4%. NCI Lifetime model risk: 7.3%. Prior Study Comparison: Patient's first Mammogram. Tissue Density: The breast tissue is heterogeneously dense. This may lower the sensitivity of mammography. Findings: Analyzed By CAD. Areas of asymmetric density such as anterior 12:00 left breast do not persist on 3-D images. Findings compatible with superimposition shadow. No significant mass, suspicious microcalcification, or other discrete abnormality is seen. Overall Assessment: Benign, BI-RAD 2 Management: Screening Mammogram of both breasts in 1 year. . Patient should continue monthly self-breast exams. A clinical breast exam by your physician is recommended on an annual basis. This exam should not preclude additional follow-up of suspicious palpable abnormalities. Note on Katie scores and lifetime risk: 1. A Katie score greater than 3% is considered moderate risk. If this is the case, consider specialist referral to assess eligibility for a risk reducing agent. 2. If overall lifetime risk for the development of breast cancer is 20% or higher, the patient may qualify for future screening with alternating mammogram and breast MRI. Electronically signed and approved by: Andrés Bird M.D. Radiologist
== END | disposition home or self-care (01) ==
LOC: RADMAMWWP 15:29
PROVIDERS: ATTEND Obstetrics & Gynecology
DX: Z12.31 Encounter for screening mammogram for malignant neoplasm of breast (principal); Z80.3 Family history of malignant neoplasm of breast
CPT/HCPCS: 77063; 77067

== ENCOUNTER → 2024-03-20 | Outpatient (CLI) | payer BC ==
--- NOTE | 2024-03-20 18:14 | MR ---
EXAMINATION TYPE: MR brain/cspine wo DATE OF EXAM: 03/20/2024 4:17 PM COMPARISON: 03/07/2021. 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 Hx Chiari decompression. TECHNIQUE: Multi planar, multi sequence imaging was performed through the brain including: T1, T2, Inversion rec overy, Diffusion weighted imaging, and gradient echo imaging. No gadolinium was given. Multi planar, multi sequence imaging was performed utilizing: T1-weighted, T2-weighted, and turbo inv ersion recovery imaging of the cervical spine. IV Contrast: mL FINDINGS: Postsurgical change the skull base. No evidence for tonsillar herniation. The huston-white junctions, ventricular system, basal cisterns appear unremarkable. Midline structures show no abnormality. Diffusion-weighted imaging shows no evidence of restricted diffusion. The suscep tibility weighted images do not reveal any evidence for micro-hemorrhage. The bone marrow signal is within normal limits. Paranasal sinuses and mastoid air cells: No significant paranasal sinus disease. Visualized orbits: Orbital contents are intact. Alignment: The cervical vertebral bodies have preserved heights. Alignment is within normal limits gi anusha patient positioning. Bones: Bone signal is within normal limits. No abnormal bone marrow edema on inversion recovery seque nces. Minimal degeneration changes with facet joint arthropathy and uncovertebral joint arthropathy. Cord: The spinal cord is unremarkable with regards to their signal intensity and morphology. Discs: Intervertebral disc signal is maintained. C2-C3: No significant disc pathology. The spinal canal is patent. No neural foraminal stenosis. C3-C4: No significant disc pathology. The spinal canal is patent. No neural foraminal stenosis. C4-C5: No significant disc pathology. The spinal canal is patent. No neural foraminal stenosis. C5-C6: No significant disc pathology. The spinal canal is patent. No neural foraminal stenosis. C6-C7: No significant disc pathology. The spinal canal is patent. No neural foraminal stenosis. C7-T1: No significant disc pathology. The spinal canal is patent. No neural foraminal stenosis. Other: None. IMPRESSION: 1. No evidence for disc herniation or significant spinal canal stenosis. 2. Minimal disc degeneration with associated osteoarthritic changes. 3. No evidence of intracranial mass or acute/subacute infarct. 4. Surgical changes skull base without evidence for tonsillar herniation. [facility], , 03/20/2024 6:11 PM
== END | disposition home or self-care (01) ==
LOC: RADMRIMAIN 14:30
PROVIDERS: ATTEND Family Medicine
DX: Q07.00 Arnold-Chiari syndrome without spina bifida or hydrocephalus (principal); M50.10 Cervical disc disorder with radiculopathy, unspecified cervical region; M47.22 Other spondylosis with radiculopathy, cervical region
CPT/HCPCS: 70551; 72141

== ENCOUNTER → 2024-04-11 | Outpatient (CLI) | payer BC ==
--- NOTE | 2024-04-11 09:02 | FL ---
EXAMINATION TYPE: FL barium swallow DATE OF EXAM: 04/11/2024 8:38 AM COMPARISON: None. CLINICAL INDICATION: Female, 43 years old with history of R13.19 Other dysphagia, sensation of food s ticking at the sternal notch for approximately 4 months. Total fluoroscopy time: 2 minutes 11 seconds. Total images: 82. Total dose: 545 mGycm2. FINDINGS: The swallowing mechanism is normal and hypopharyngeal anatomy is preserved. The cervical and thoracic portions have a normal course and caliber. There are blunted secondary stripping waves with delay in clearance of contrast from the esophagus es pecially when the patient is prone/supine. Minimal tertiary peristaltic contractions are noted. The mucosa is normal and no persistent filling defect is encountered. There is a small sliding hiatal hernia demonstrated. Gastroesophageal reflux could not be elicited du ring the course of the exam. PFO closure device incidentally noted. IMPRESSION: 1. Small sliding hiatal hernia. While we were unable to elicit gastroesophageal reflux during the cou rse of the exam, this does not exclude its possibility. 2. Mild esophageal dysmotility. 3. No stricture or other abnormality seen. [facility], , 04/11/2024 9:00 AM
== END | disposition home or self-care (01) ==
LOC: RADFLMAIN 07:44
PROVIDERS: ATTEND Family Medicine
DX: K44.9 Diaphragmatic hernia without obstruction or gangrene (principal); R13.19 Other dysphagia; K22.4 Dyskinesia of esophagus
CPT/HCPCS: 74220